=== PATIENT | female | born 1975 | race Caucasian/White ===

== ENCOUNTER 2022-01-25 12:30 | Emergency (ER) | payer OTHER, SELFPAY ==
[2022-01-25 12:52] VITALS: BP 122/80; PULSE 95; RESP 16; TEMP 36.4; O2SAT 100; BMI 23.3
--- NOTE | 2022-01-25 13:32 | ED_ITS ---
HPI - Ear Problem General Chief complaint: Ear/Nose/Throat Problem Stated complaint: Left ear pain, can't hear from it Time Seen by Provider: 01/25/22 12:55 Source: patient Mode of arrival: ambulatory Limitations: no limitations History of Present Illness HPI Narrative: 46-year-old female coming in today complaining of difficulty hearing in the left ear for about a week and half. She denies any trauma. No headache. She has drainage from her ear. She has been battling chronic ear infections bilaterally for a year she states. She has not been on any treatment as of late cut her ears were doing fine until this happened. She denies any recent cold or congestion. No runny nose no difficulty breathing. Related Data Previous Rx's Medication Instructions Recorded ciprofloxacin 0.3 %-dexamethasone 4 drp OTIC (EAR) QID 7 Days #7.5 ml 01/25/22 0.1 % ear drops,suspension (Ciprodex) Allergies Allergy/AdvReac Type Severity Reaction Status Date / Time Penicillins AdvReac Unknown Verified 01/25/22 12:55 Review of Systems Status of ROS: Reports: 10 or more systems reviewed and unremarkable except as noted in History and below Exam Narrative: Exam Narrative: Well-nourished well-developed patient in no acute distress. Alert and oriented. Answers questions appropriately. Mood and affect are appropriate. Thoughts are goal oriented and rational. No tangential or magical thinking noted. Patient speaks in full sentences without needing to catch their breath. HEENT: Normocephalic atraumatic. Pupils are equally round reactive to light. Extraocular muscles are intact. Conjunctivae are moist without any icterus noted. Nares patent bilaterally. Right TM appears normal with a normal external ear canal. Left TM cannot visualized. Left ear canal is full of thick white discharge consistent with an otitis externa. Skin: Well perfused without any obvious rashes. Const: Vital Signs, click to edit/add: Vital Signs - 24 hr 01/25/22 12:52 Temperature 97.6 F Pulse Rate [Pulse Oximeter] 95 Respiratory Rate 16 Blood Pressure [Ri ght Upper Arm] 122/80 Pulse Oximetry 100 Course Vital Signs Vital signs: Initial Vital Signs Temperature 97.6 F 01/25/22 12:52 Temperature Source Temporal Artery Scan 01/25/22 12:52 Pulse Rate 95 01/25/22 12:52 Respiratory Rate 16 01/25/22 12:52 Blood Pressure 122/80 01/25/22 12:52 Blood Pressure Mean 94 01/25/22 12:52 Blood Pressure Position Sitting 01/25/22 12:52 Pulse Oximetry 100 01/25/22 12:52 Oxygen Delivery Method 01/25/22 12:52 Vital Signs Temperature 97.6 F 01/25/22 12:52 Pulse Rate 95 01/25/22 12:52 Respiratory Rate 16 01/25/22 12:52 Blood Pressure 122/80 01/25/22 12:52 Pulse Oximetry 100 01/25/22 12:52 Temperature 97.6 F 01/25/22 12:52 Pulse Rate 95 01/25/22 12:52 Respiratory Rate 16 01/25/22 12:52 Blood Pressure 122/80 01/25/22 12:52 Pulse Oximetry 100 01/25/22 12:52 Medical Decision Making MDM Narrative Medical decision making narrative: Symptoms consistent with otitis externa. Will treat with Ciprodex 4 times per day and have her follow up with primary care. Discharge Plan Discharge Clinical Impression: Otitis externa Patient Disposition: Home, Self-Care Condition: Stable Additional Instructions: Use drops 4 times per day. Later on your right-sided fill the left ear with drops. Lather for 10 minutes before putting small follow-up cotton in the ear to hold the liquid inside. Do this for 1 week and follow-up with your primary care provider week from now. Prescriptions: New ciprofloxacin-dexamethasone [Ciprodex] 0.3-0.1 % drops,suspension 4 drp otic (ear) QID 7 Days Qty: 7.5 0RF Stand Alone Forms: [facility] Info Instructions
--- OUTSIDE RECORDS SUMMARY | 2022-02-19 13:28 | XMS_ITS | Encounter Summary ---
:1975 Author Organization Department of [facility] rs Address [address] [place] [address] Care Team Providers Name Role Phone CHRISTY RIBEIRO Primary Care Provider Unavailable Selected Encounter This section includes the information on record at [place] for the Encounter. Date/Time Encounter Type Encounter Description Reason Provider Source Dec 28, 2021 12:39 Outpatient Encounter CLINICAL PHARMACY PM [facility] Encounter Template Text not used by [place] Plan of Treatment: Future Appointments (+ 6 months) and Future Tests (+/- 45 days) The Plan of Treatment section includes future care activities for the patient from all [place] treatmentfacilities. This section includes future appointments and future orders which are active, pending orscheduled.Future Appointments This section includes appointments that were scheduled to occur 6 months from the date of the Encounter, up to a maximum of 20 appointments. The data comes from all [place] treatment facilities. Appointment Date/Time Appointment Type Appointment Facili ty Name Jan 03, 2022 06:00 PM AMBULATORY - NONE [facility] Jan 04, 2022 10:15 AM AMBULATORY - [facility] Jan 29, 2022 08:04 AM AMBULATORY - [facility] Jan 29, 2022 09:15 AM AMBULATORY [facility] Lab Results: +/- 30 days of the encounter This section includes the Chemistry and Hematology Lab Results on record with [place] for the patient. Radiology Reports and Pathology Reports are provided separately, in subsequent sections.Lab Results This section contains the Chemistry/Hematology Results that were resulted 30 days before or 30 daysafter the date of the Encounter. Date/Time Source Result Type Result - Unit Interpretation Reference Range Comment Dec 28, 2021 [facility] LIPID PANEL,NON-FASTING Spec imen Type: PLASMA 12:50 PM Comment: Elevat ed triglyceride result from a non-fasting specimen should be interpreted with caution. A fasting panel is recommended for accurate triglycerides when trigs are >200 from a non-fasting specimen. Ordering Provid er: CHRISTY RIBEIRO Report Released Date/Time: Dec 28, 2021 11:57 AM Reporting Lab: [facility] [address] [facility] [id number] Performing Lab: [facility] [address] [facility] [phone] CHOLESTEROL 266 mg/dL H <199 .HDL 73 mg/dL >50 LDL CALCULATION 149 mg/dL H <99 VLDL CALCULATION 44 mg/dL H <29 NON HDL CHOLESTEROL 193 mg/dL H <129 TRIG(NON FASTING) 219 mg/dL H <149 Dec 28, 2021 12:50 PM [facility] HEMOGLOBIN A1C Specim en Type: BLOOD No comment enter ed. Ordering Provid er: CHRISTY RIBEIRO Report Released Date/Time: Dec 28, 2021 11:57 AM Reporting Lab: [facility] [address] [facility] [id number] Performing Lab: [facility] [address] [facility] [id number] HEMOGLOBIN A1C 5.4 4.0-6.0 Dec 28, 2021 12:50 PM [facility] FSH Specim en Type: PLASMA Comment: Elevat ed triglyceride result from a non-fasting specimen should be interpreted with caution. A fasting panel is recommended for accurate triglycerides when trigs are >200 from a non-fasting specimen. Ordering Provid er: CHRISTY RIBEIRO Report Released Date/Time: Dec 28, 2021 11:57 AM Reporting Lab: [facility] [address] [facility] [phone] Performing Lab: [facility] [address] [facility] [phone] FSH 39.22 m[IU]/mL Dec 28, 2021 12:50 [facility] TSH W/REFLEX TO FREE Spec imen Type: PLASMA PM T4 Comment: Elevat ed triglyceride result from a non-fasting specimen should be interpreted with caution. A fasting panel is recommended for accurate triglycerides when trigs are >200 from a non-fasting specimen. Ordering Provid er: CHRISTY RIBEIRO Report Released Date/Time: Dec 28, 2021 11:57 AM Reporting Lab: [facility] [address] [facility] [address] Performing Lab: [facility] [address] [place] [facility] [id number] TSH 1.49 u[IU]/mL 0.35-4.94 Vital Signs: All taken on the encounter date This section contains inpatient and outpatient Vital Signs collected on the date of the Encounter. Date/Time Temperature Pulse Blood Respiratory SP02 Pain Height Weight Ricardo dy Source Pressure Rate Mass Index Dec 28 111/77 18 /min 97 % 4 65.5 in 138.3 23 [place] 2021 11:34 /min mm[Hg] lb [facility] Social History: Smoking Status (Most current) and Tobacco Use (All prior to encounter date) This section includes the most current, and the historical, smoking and tobacco-related health factors from the [place] facility where the Encounter took place.Current Smoking Status This section includes the most current smoking, or tobacco-related health factor, from the [place] facility where the Encounter took place. Date/Time Current Smoking Status Comment Facility Dec 28, 2021 11:00 AM VA-TOBACCO USER EVERY DAY [facility] Tobacco Use History This section includes a history of the smoking, or tobacco- related health factors, that were collected on or before the date of the Encounter. The data comes from the [place] facility where the Encounter took place. Date/Time Smoking Status/Tobacco Use Comment Tom leon Dec 28, 2021 11:00 AM VA-TOBACCO USE ADVICE THAO FRANCO [facility] Dec 28, 2021 11:00 AM VA-TOBACCO USE TIMEKEEPER NO [facility] Dec 28, 2021 11:00 AM VA-TOBACCO USE MED YES MIN [facility] Dec 28, 2021 11:00 AM VA-TOBACCO USE WI 30 MIN OF WAKEUP [facility] Dec 28, 2021 11:00 AM VA-TOBACCO USER EVERY DAY [facility] Jan 24, 2021 10:00 AM VA-TOBACCO USE > 15 LESS THAN 30 [facility] YEARS Jan 24, 2021 10:00 AM VA-TOBACCO USE ADVICE THAO FRANCO [facility] Jan 24, 2021 10:00 AM VA-TOBACCO USE TIMEKEEPER NO [facility] Jan 24, 2021 10:00 AM VA-TOBACCO USE MED NO [facility]AO FRANCO [facility] Jan 24, 2021 10:00 AM VA-TOBACCO USE WI 30 MIN OF WAKEUP [facility] Jan 24, 2021 10:00 AM VA-TOBACCO USER EVERY DAY [facility] Aug 25, 2019 12:31 PM VA-TOBACCO FORMER USER MIN [facility] Aug 25, 2019 12:31 PM VA-TOBACCO QUIT < 1 YEAR [facility] November 11, 2017 08:04 AM CURRENT TOBACCO USER [facility] May 16, 2015 12:39 PM CURRENT TOBACCO USER [facility] Sep 16, 2013 11:37 AM CURRENT TOBACCO USER [facility] Mar 18, 2012 07:44 AM CURRENT TOBACCO USER [facility] Sep 17, 2010 09:11 AM CURRENT TOBACCO USER [facility] Mar 22, 2009 08:43 AM CURRENT TOBACCO USER [facility] Mar 28, 2008 11:14 AM CURRENT TOBACCO USER [facility] May 04, 2007 11:39 AM CURRENT TOBACCO USER [facility] May 04, 2007 11:34 AM CURRENT TOBACCO USER [facility] Aug 07, 2006 09:27 AM CURRENT TOBACCO USER [facility] Advance Directives: All historical and current Section Date Range: From patient's date of to the date document was created. This section includes ALL of a patient's completed or amended [place] Advance and Rescinded Directives. The entries below indicate that a directive exists for the patient, but an actual copy is not included with this document. The data comes from all [facility]. Date Advance Directives Provider Source Apr 22, 2003 ADVANCE DIRECTIVE LUZ ASHBY [facility] Pathology Reports: +/- 30 days of the encounter Pathology Reports For cases when an order for pathology services may have been completed prior to the date of the Encounter, the report list includes the Pathology Reports that were completed up to 30 days before date of the Encounter. For cases when an order for pathology services may have been completed after the date of the Encounter, the report list also includes the Pathology Reports that were completed up to 30days after date of the Encounter. The data comes from all [place] treatment facilities. Date/Time Pathology Report Provider Source Dec 28, 2021 12:44 PM LR MICRO[facility]OLOGY REPORT: [place] [facility] Reporting Lab: [facility] [[id number]# [id number]] [place] [address] Accession [UID]: [id number] [[id number]] Receive d: Dec 28, 2021@12:44 Collection sample: CLIPPINGS Collection date: 2021 12:44 Site/Specimen: NAIL Provider: CHRISTY RIBEIRO Comment on specimen: RECEIVED IN STERILE CUP Test(s) ordered: HUANG FUNGAL PREP....... ........ completed: Jan 01, 2022 10:17 MYCOLOGY CULTURE.............. completed: Jan [id number] * MYCOLOGY FINAL REPORT => Jan 25, 2022 10:09 TE CODE: [id number] MYCOLOGY SMEAR/PREP: HUANG PREP: 1+ SEPTATE HYPHAE, 3-4 MICRONS WIDE CULTURE PENDING Fungus/Yeast: NO DERMATOPHYTES ISOLATED Mycology Remark(s): THIS REPORT IS FINAL =--=--=--=--=--=--=--=--=--=--=--=--=--= --=--=--=--=--=--=--=--=--=--=--=--=-- Performing Laboratory: Mycology Report Performed By: [facility] [CLIA# [id number]] [place] [address] Encounter Notes: All associated encounter notes This section contains the clinical notes associated to the Encounter. Date/Time Encounter Note(s) Provider Source Dec 28, 2021 12:39 PM EDUCATION NOTE: PERNELL PATTON [facility] LOCAL TITLE: EDUCATION MEDICATION INSTRUCTION STANDARD TITLE: EDUCATION NOTE DATE OF NOTE: DEC 28, 2021@12:39 ENTRY DATE: DEC 28, 2021@12:40:09 AUTHOR: PERNELL PATTON EXP COSIGNER: Edmond BOATENG URGENCY: STATUS: COMPLETED MEDICATION EDUCATION PARTICIPANTS: Patient TEACHING STRATEGY: Face to Face READINESS TO LEARN: No barriers identified LEARNING NEEDS/OBJECTIVES Participant(s) indicates readiness to learn and has been instructed on indications, side effects, and di rections for use. Participant(s) will receive medication informat ion sheets for medications filled. Education included discussion of the following: New medication(s): citalopram, FLUOCINOLONE CARMEN TONIDE 0.01% OTIC OIL PATIENT/FAMILY RESPONSE (OUTCOME): Verbalizes cr itical information about the topic FOLLOW-UP RECOMMENDED: None needed Active Outpatient Medications (including Supplie s): Outpatient Medications Status 1) ALBUTEROL 90MCG (CFC-F) 200D ORAL INHL INHALE 2 PUFFS ACTIVE BY MOUTH FOUR TIMES A DAY FOR BREATHING *SHAKE WELL* (FOR IMMEDIATE RELIEF) 2) CIPROFLOXACIN 0.3/DEXAM 0.1% OTIC SUSP INSTIL L 4 NON-VERIFIED DROPS IN EAR(S) TWICE A DAY 3) CITALOPRAM HYDROBROMIDE 20MG TAB TAKE ONE-ILEANA F TABLET NON-VERIFIED BY MOUTH EVERY DAY FOR 7 DAYS, THEN TAKE ONE TA BLET EVERY DAY 4) FLUOCINOLONE ACETONIDE 0.01% OTIC OIL INSTILL 5 DROPS NON-VERIFIED INTO BOTH EARS WEEKLY 5) FLUTICASONE PROP 50MCG 120D NASAL INHL SPRAY 1 SPRAY NON-VERIFIED IN EACH NOSTRIL EVERY DAY FOR ALLERGIES 6) IBUPROFEN 800MG TAB TAKE ONE TABLET BY MOUTH THREE NON-VERIFIED TIMES A DAY NEEDED FOR PAIN -TAKE WITH FOOD 7) POLYETHYLENE GLYCOL 3350 ORAL PWDR TAKE 17 GR AMS BY ACTIVE MOUTH EVERY DAY *MIX IN 4 TO 8 OUNCES OF LIQUID DIRECTED*USE COVER TO MEASURE POWDER* Non-VA Medications Status 1) Non-VA PSEUDOEPHEDRINE TAB 30MG MOUTH TWICE A DAY ACTIVE NEEDED 2) Non-VA VITAMIN E CAP,ORAL 1 TABLET MOUTH EVER Y DAY ACTIVE NEEDED 9 Total Medications /es/ PERNELL PATTON Staff Readiness Officer Signed: 12/28/2021 12:41 /prerna/ ADENIKE BOATENG [employer] Developer Cosigned: 12/28/2021 12:47
--- OUTSIDE RECORDS SUMMARY | 2022-02-19 13:28 | XMS_ITS | Encounter Summary ---
:1975 Author Organization Department of [facility] rs Address [address] [place] [id number] Support Name Relationship Address Phone DAVID VERNON Unavailable [address] [place] [address] MADDICHICO RAEANN Macias Unavailable [address] [place] [address] [place] [address] Selected Encounter This section includes the information on record at [facility] for the Encounter. Date/Time Encounter Type Encounter Description Reason Provider Source Jan 15, 2022 08:59 Outpatient Encounter TELEPHONE/ANCILLARY AM IHE Encounter Template Text not used by [place] Plan of Treatment: Future Appointments (+ 6 months) and Future Tests (+/- 45 days) The Plan of Treatment section includes future care activities for the patient from all [place] treatmentfacilities. This section includes future appointments and future orders which are active, pending orscheduled.Future Appointments This section includes appointments that were scheduled to occur 6 months from the date of the Encounter, up to a maximum of 20 appointments. The data comes from all [place] treatment facilities. Appointment Date/Time Appointment Type Appointment Facili ty Name Jan 29, 2022 08:04 AM AMBULATORY - NONE [facility] Jan 29, 2022 09:15 AM AMBULATORY [facility] Lab Results: +/- 30 days of the encounter This section includes the Chemistry and Hematology Lab Results on record with [facility] for the patient. Radiology Reports and Pathology Reports are provided separately, in subsequent sections.Lab Results This section contains the Chemistry/Hematology Results that were resulted 30 days before or 30 daysafter the date of the Encounter. Date/Time Source Result Type Result - Unit Interpretation Reference Range Comment Jan 29, 2022 09:07 AM [facility] ALT/SGPT Specim en Type: PLASMA No comment enter ed. Ordering Provid er: CHRISTY RIBEIRO Report Released Date/Time: Jan 03, 2022 09:17 AM Reporting Lab: [facility] [address] [facility] [address] Performing Lab: [facility] [address] [facility] [address] ALT/SGPT 12 <55 Jan 29, 2022 09:07 AM [facility] AST/SGOT Specim en Type: PLASMA No comment enter ed. Ordering Provid er: CHRISTY RIBEIRO Report Released Date/Time: Jan 03, 2022 09:17 AM Reporting Lab: [facility] [address] [facility] [address] Performing Lab: [facility] [address] [facility] [address] AST/SGOT 17 <34 Jan 29, 2022 [facility] CREATININE(INCLUDES EGFR) Sp ecimen Type: PLASMA 09:07 AM No comment enter ed. Ordering Provid er: CHRISTY RIBEIRO Report Released Date/Time: Jan 03, 2022 09:17 AM Reporting Lab: [facility] [address] [facility] [address] Performing Lab: [facility] [address] [facility] [address] CREATININE 0.6 0.5-1.0 CREAT EGFR(CKD-EPI) >90 >60 Jan 29, 2022 09:07 AM [facility] CBC Specim en Type: BLOOD No comment enter ed. Ordering Provid er: CHRISTY RBIEIRO Report Released Date/Time: Jan 03, 2022 09:17 AM Reporting Lab: [facility] [address] [facility] [address] Performing Lab: [facility] [address] [facility] [address] WBC 8.61 4.0-11.0 RBC 4.53 4.0-5.4 HGB 15.0 11.5-16 HCT 44.6 34.5-48 MCV 98.5 80-100 MCH 33.1 H 27-33 MCHC 33.6 32.0-37.5 PLT 271 150-400 MPV 9.5 7.4-10.4 RDW 13.2 11.5-14.5 Dec 28, 2021 12:50 [facility] TSH W/REFLEX TO FREE Spec imen Type: PLASMA PM T4 Comment: Elevat ed triglyceride result from a non-fasting specimen should be interpreted with caution. A fasting panel is recommended for accurate triglycerides when trigs are >200 from a non-fasting specimen. Ordering Provid er: CHRISTY RIBEIRO Report Released Date/Time: Dec 28, 2021 11:57 AM Reporting Lab: [facility] [address] [facility] [address] Performing Lab: [facility] [address] [facility] [address] TSH 1.49 0.35-4.94 Dec 28, 2021 12:50 PM [facility] FSH Specim en Type: PLASMA Comment: Elevat ed triglyceride result from a non-fasting specimen should be interpreted with caution. A fasting panel is recommended for accurate triglycerides when trigs are >200 from a non-fasting specimen. Ordering Provid er: CHRISTY RIBEIRO Report Released Date/Time: Dec 28, 2021 11:57 AM Reporting [facility] [address] Performing Lab: [facility] [address] FSH 39.22 Dec 28, 2021 12:50 PM [facility] HEMOGLOBIN A1C Specim en Type: BLOOD No comment enter ed. Ordering Provid er: CHRISTY RIBEIRO Report Released Date/Time: Dec 28, 2021 11:57 AM Reporting Lab: [facility] [address] [facility] [address] Performing Lab: [facility] [address] HEMOGLOBIN A1C 5.4 4.0-6.0 Dec 28, 2021 [facility] LIPID PANEL,NON-FASTING Spec imen Type: PLASMA 12:50 PM Comment: Elevat ed triglyceride result from a non-fasting specimen should be interpreted with caution. A fasting panel is recommended for accurate triglycerides when trigs are >200 from a non-fasting specimen. Ordering Provid er: CHRISTY RIBEIRO Report Released Date/Time: Dec 28, 2021 11:57 AM Reporting Lab: [facility] [address] [facility] [address] Performing Lab: [facility] [address] CHOLESTEROL 266 H <199 .HDL 73 >50 LDL CALCULATION 149 H <99 VLDL CALCULATION 44 H <29 NON HDL CHOLESTEROL 193 H <129 TRIG(NON FASTING) 219 H <149 Social History: Smoking Status (Most current) and Tobacco Use (All prior to encounter date) This section includes the most current, and the historical, smoking and tobacco-related health factors from the [facility] facility where the Encounter took place.Current Smoking Status This section includes the most current smoking, or tobacco-related health factor, from the [place] facility where the Encounter took place. Date/Time Current Smoking Status Comment Facility Jan 15, 2022 09:37 AM CURRENT SMOKER MINDY Hyl[facility] Tobacco Use History This section includes a history of the smoking, or tobacco- related health factors, that were collected on or before the date of the Encounter. The data comes from the [place] facility where the Encounter took place. Date/Time Smoking Status/Tobacco Use Comment [facility] Dec 28, 2021 11:00 AM VA-TOBACCO USE > 15 LESS THAN 30 [facility] YEARS Dec 28, 2021 11:00 AM VA-TOBACCO USE ADVICE [facility] Dec 28, 2021 11:00 AM VA-TOBACCO USE CITIZEN PARTICIPATION SPECIALIST NO [facility] Dec 28, 2021 11:00 AM VA-TOBACCO USE MED YES [facility] Dec 28, 2021 11:00 AM VA-TOBACCO USE WI 30 MIN OF WAKEUP [facility] Dec 28, 2021 11:00 AM VA-TOBACCO USER EVERY DAY [facility] Jan 24, 2021 10:00 AM VA-TOBACCO USE > 15 LESS THAN 30 [facility] YEARS Jan 24, 2021 10:00 AM [facility]BACCO [facility] Jan 24, 2021 10:00 AM VA-TOBACCO USE CITIZEN PARTICIPATION SPECIALIST NO [facility] Jan 24, 2021 10:00 AM VA-TOBACCO USE MED NO [facility] Jan 24, 2021 10:00 AM VA-TOBACCO USE WI 30 MIN OF WAKEUP [facility] Jan 24, 2021 10:00 AM VA-TOBACCO USER EVERY DAY [facility] Aug 25, 2019 12:31 PM VA-TOBACCO FORMER USER [facility] Aug 25, 2019 12:31 PM VA-TOBACCO QUIT < 1 YEAR [facility] [place] [facility] November 11, 2017 08:04 AM CURRENT TOBACCO USER [facility] May 16, 2015 12:39 PM CURRENT TOBACCO USER [facility] Sep 16, 2013 11:37 AM CURRENT [facility] Mar 18, 2012 07:44 AM CURRENT [facility] Sep 17, 2010 09:11 AM CURRENT [facility]AC[facility] Mar 22, 2009 08:43 AM CURRENT TOBACCO USER [facility] Mar 28, 2008 11:14 AM CURRENT TOBACCO USER [facility] May 04, 2007 11:39 AM CURRENT TOBACCO USER [facility] May 04, 2007 11:34 AM CURRENT TOBACCO USER [facility] Aug 07, 2006 09:27 AM CURRENT TOBACCO USER [facility] Advance Directives: All historical and current Section Date Range: From patient's date of to the date document was created. This section includes ALL of a patient's completed or amended [facility] Advance and Rescinded Directives. The entries below indicate that a directive exists for the patient, but an actual copy is not included with this document. The data comes from all [place] facilities. Date Advance Directives Provider Source Apr 22, 2003 ADVANCE DIRECTIVE LUZ ASHBY [facility] Pathology Reports: +/- 30 days of [...] the Encounter. The data comes from all [place] treatment facilities. Date/Time Pathology Report Provider Source Dec 28, 2021 12:44 PM LR MICROBIOLOGY REPORT: MO HUONG [facility] Reporting Lab: [facility] [CLIA# [id number]] [place] [address] Accession [UID]: [id number] [[id number]] Receive d: Dec 28, 2021@12:44 Collection sample: CLIPPINGS Collection date: 2021 12:44 Site/Specimen: NAIL Provider: CHRISTY RIBEIRO Comment on specimen: RECEIVED IN STERILE CUP Test(s) ordered: HUANG FUNGAL PREP....... ........ completed: Jan 01, 2022 10:17 MYCOLOGY CULTURE.............. completed: Jan [id number] * MYCOLOGY FINAL REPORT => Jan 25, 2022 10:09 TE CODE: [id number] MYCOLOGY SMEAR/PREP: HUANG PREP: 1+ SEPTATE HYPHAE, 3-4 MICRONS WIDE CULTURE PENDING Fungus/Yeast: NO DERMATOPHYTES ISOLATED Mycology Remark(s): THIS REPORT IS FINAL =--=--=--=--=--=--=--=--=--=--=--=--=--= --=--=--=--=--=--=--=--=--=--=--=--=-- Performing Laboratory: Mycology Report Performed By: [facility] [CLIA# [id number]] [address] [place] [address] Encounter Notes: All associated encounter notes This section contains the clinical notes associated to the Encounter. Date/Time Encounter Note(s) Provider Source Jan 15, 2022 09:00 AM REPORT OF CONTACT: [facility] LOCAL TITLE: PATIENT CONTACT NOTE STANDARD TITLE: REPORT OF CONTACT DATE OF NOTE: JAN 15, 2022@09:00 ENTRY DATE: JAN 15, 2022@09:00:06 AUTHOR: KELSI CHOI EXP COSIGNER: URGENCY: STATUS: COMPLETED Patient contact Pt with hx of CHELI 2,3 in 2005- Name of Fortun[place]: CHELI FITCH Name/Relationship of Contact if other than Veter an: Date & Time of Contact: Jan@09:00 Type of Contact: Telephone Reason for Contact: Called pt to do cervical ca. risk screen. Left h ipaa-compliant VM message along w/callback number ([phone]) f or her to return the call. /prerna/ KELSI CHOI RN REGISTERED NURSE Signed: 01/15/2022 09:01
--- OUTSIDE RECORDS SUMMARY | 2022-02-19 13:28 | XMS_ITS | Continuity of Care Document ---
:1975 Author Organization [facility] Care Team Providers Name Role Phone [facility] Unavailable Unavailable Problems Combined list of problems from Department of Defense and [facility] Affairs facilities. It does not include entries that were removed or entered in error. Problem Status Onset Problem Date of Comments Source Date Type Resolution Anxiety Active Condition [place] state/reaction [facility] S Back pain, low Active Condition [place] [facility] Cancer cervix Active Condition Jan 15 [place] screening status 2021 Entered [facility] By: ALMA CHOI Comment: 08/08/2005 CHELI II,III finding on [place]. Needs q3yr f/u x 25 years after CHELI 2,3 result, so through 2030. Jan 15, 2022 Entered By: ALMA CHOI Comment: 09/07/2019 PAP NILM/HPV Neg Next due for co-test in 3 years, 08/2022 Cervicalgia Active Condition [place] (ICD-9-CM 723.1) [facility] Diverticulitis of Active Condition [place] [facility] Fatigue and Malaise Active Condition [facility] Fibromyalgia Active Condition [place] [facility] High risk for Active Condition November 13, [place] breast cancer 2017 Entered [facility] By: CHRISTY RIBEIRO Comment: alternating mammogram/MRI every 6 mos. 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 [facility] (SNOMED CT 79284042592774306) Osteoarthritis Active Condition [place] (SNOMED CT [facility] [id number]) Paroxysmal SVT Active Condition [place] [facility] Soc Hx: working in Active Condition [place] [employer], [place], + tobacco, occ etoh, no drugs of abuse Supraventricular Active Condition [place] tachycardia [facility] Surg Hx: LEEP, Active Condition [place] adenoids and [facility] possible tonsils, Acute atopic Inactive Condition 11/11/2017 [place] conjunctivitis [facility] S (SNOMED CT [id number]) Diagnosis: active Diagnosis [place] ICD-10-CM H60.549 [facility] Acute eczematoid otitis externa, unspecified earwith Provider Comments: Acute Eczematoid Otitis Externa, unspecified Ear Diagnosis: active Diagnosis [place] ICD-10-CM H60.8X3 [facility] Other otitis externa, bilateralwith Provider Comments: Other Otitis Externa, Bilateral Diagnosis: active Diagnosis C.WSilverio POPE ICD-10-CM S52.125A [facility] DEPT OF Nondisp fx of head V [facility] of left radius, init for clos fxwith Provider Comments: Nondisplaced Fracture of Head of left Radius, Initial Encounter for closed Fracture Diagnosis: active Diagnosis [place] ICD-10-CM Z71.89 [facility] Other specified counselingwith Provider Comments: Other specified counseling Diagnosis: active Diagnosis [place] ICD-10-CM K57.33 [facility] Dvtrcli of lg int w/o perforation or abscess w bleedingwith Provider Comments: Diverticulitis of colon (SNOMED CT [id number]) Diagnosis: active Diagnosis [place] ICD-10-CM H90.3 [facility] CS Sensorineural hearing loss, bilateralwith Provider Comments: Sensorineural hearing loss, bilateral Diagnosis: active Diagnosis [place] ICD-10-CM Z01.118 [facility] Encntr for exam of ears and hearing w oth abnormal findingswith Provider Comments: Encntr for exam of ears and hearing w oth abnormal findings Diagnosis: active Diagnosis [place] ICD-10-CM Z01.00 [facility] Encounter for exam of eyes and vision w/o abnormal findingswith Provider Comments: Encounter for exam of eyes and vision w/o abnormal findings Diagnosis: active Diagnosis [place] ICD-10-CM F17.218 [facility] Nicotine dependence, cigarettes, w oth disorderswith Provider Comments: Nicotine Dependence, Cigarettes, with other Nicotine-Induced Disorders Diagnosis: active Diagnosis [place] ICD-10-CM Z30.09 [facility] Encounter for oth general cnsl and advice on contraceptionwith Provider Comments: Encounter for other General Counseling and Advice on Contraception Medications Combined list of outpatient medications from Department of Defense and Veterans Affairs facilities. Medications provided include 1) outpatient medications from the last 15 months, and 2) patient-reported medications. Medication Details Route Status Patient Prescription Prescription Last Ordering Order Source Instructions Expires Number Dispense Provider Date Date ALBUTEROL INHALE 2 ORAL ACTIVE 12/29/2022 [id number] RIBEIRO ,ALI 12/28/ [place] 90MCG/ACTUA PUFFS BY 2 2021 [place] [facility] T ([facility]-F) MOUTH HCS INHL,ORAL,8 FOUR .5GM DOSE TIMES A COUNTER DAY FOR BREATHIN G *SHAKE WELL* (FOR IMMEDIAT E RELIEF) ALBUTEROL INHALE 2 ORAL DISCONT 06/28/2022 [id number] D URAN,ALI 06/27/ [place] 90MCG/ACTUA PUFFS BY INUED 1 2020 [place] [facility] T (CFC-F) MOUTH HCS INHL,ORAL,8 FOUR .5GM DOSE TIMES A COUNTER DAY FOR BREATHIN G *SHAKE WELL* (FOR IMMEDIAT E RELIEF) ALBUTEROL INHALE 2 ORAL DISCONT 11/29/2021 [id number] D URAN,ALI 11/28/ [place] 90MCG/ACTUA PUFFS BY INUE 1 2020 [place] [facility] T (CFC-F) MOUTH HCS INHL,ORAL,8 FOUR .5GM DOSE TIMES A COUNTER DAY FOR BREATHIN G *SHAKE WELL* (FOR IMMEDIAT E RELIEF) ALBUTEROL INHALE 2 ORAL DISCONT 01/07/2021 [id number] BOWM AN 01/07/ [place] 90MCG/ACTUA PUFFS BY INUE 1 2019 O [place] [facility] T (CFC-F) MOUTH AKIL M HCS INHL,ORAL,8 FOUR .5GM DOSE TIMES A COUNTER DAY FOR BREATHIN G *SHAKE WELL* (FOR IMMEDIAT E RELIEF) CIPROFLOXAC INSTILL AURICU 01/27/2022 [id number] D URAN,ALI 12/28/ [place] IN HCL 4 DROPS LAR 2 2021 [place] [facility] 0.3%/DEXAME IN (OTIC) HCS THASONE EAR(S) 0.1% TWICE A SUSP,OTIC DAY FOR ONE WEEK CITALOPRAM TAKE ORAL DISCONT 12/29/2022 [id number] Paige RIBEIRO 12/28/ [place] HYDROBROMID ONE-HALF INUED 2 2021 [place] [facility] E 20MG TAB TABLET HCS BY MOUTH EVERY DAY FOR 7 DAYS, THEN TAKE ONE TABLET EVERY DAY CYCLOBENZAP TAKE ONE ORAL DISCONT 01/07/2021 [id number] GREGORIA WMAN 01/07/ [place] HCL TABLET INUE 1 2019 [place] [facility] A 10MG TAB BY MOUTH AKIL Dodd HCS THREE TIMES A DAY NEEDED FOR MUSCLE RELAXER CYCLOBENZAP TAKE ONE ORAL 12/22/2021 [id number] DIANA RIBEIRO 12/22/ [place] HCL TABLET 1 2020 [place] [facility] 10MG TAB BY MOUTH HCS THREE TIMES A DAY NEEDED FOR MUSCLE RELAXER DOCUSATE NA TAKE 1 ORAL 12/22/2021 [id number] D URDIANA LEDEZMA 12/22/ [place] 50MG/SENNOS TO 4 1 2020 [place] [facility] IDES 8.6MG TABLETS HCS TAB BY MOUTH UP TO TWICE A DAY NEEDED FOR CONSTIPA TION -STOP IF DIARRHEA /LOOSE STOOLS OCCUR DOXYCYCLINE TAKE TWO ORAL 01/27/2021 [id number] DIANA RIBEIRO 12/29/ [place] HYCLATE TABLETS 1 2020 [place] [facility] 100MG TAB BY MOUTH HCS ONCE FOR LYME PREVENTI ON FLUOCINOLON INSTILL AURICU ACTIVE 12/29/2022 [id number] DIANA RIBERA 12/28/ [place] E ACETONIDE 5 DROPS LAR 2 2021 [place] [facility] A 0.01% INTO (OTIC) HCS OIL,OTIC BOTH EARS WEEKLY FLUTICASONE INHALE 1 RESPIR 09/20/2021 [id number] DIANA RIBEIRO 09/20/ [place] 250MCG/SALM PUFF BY ATORY 1 2020 [place] A ETEROL INHALATI (INHAL HCS 50MCG ON TWICE ATION) INHL,ORAL,D A DAY TO ISKUS,60 PREVENT TROUBLE BREATHIN G -RINSE MOUTH AFTER EACH USE FLUTICASONE SPRAY 1 NASAL ACTIVE 12/29/2022 [id number] D DIANA WEBSTER 12/28/ [place] PROPIONATE SPRAY IN 2 2021 [place] A 50MCG/SPRAY EACH HCS SOLN,NASAL, NOSTRIL 16GM EVERY DAY FOR ALLERGIE S FLUTICASONE SPRAY 1 NASAL DISCONT 11/29/2021 [id number] RIBEIRO,ALI 12/08/ [place] PROPIONATE SPRAY IN INUED 1 2020 [place] A 50MCG/SPRAY EACH HCS SOLN,NASAL, NOSTRIL 16GM EVERY DAY FOR ALLERGIE S GABAPENTIN TAKE ONE ORAL ACTIVE 01/04/2023 [id number] RIBEIRO ,ALI 01/03/ [place] 300MG CAP CAPSULE 2 2021 [place] [facility] BY MOUTH HCS AT BEDTIME FOR HOT FLASHES HC INSTILL AURICU 12/30/2020 [id number] RIBEIRO,AL I 11/30/ [place] 1%/N-MYCIN 4 DROPS LAR 1 2020 [place] [facility] 3.5MG/POLYM IN (OTIC) HCS YX EAR(S) 26729RHP/ML FOUR SUSP,OTIC TIMES A DAY FOR 1 WEEK FOR EAR INFECTIO N - SHAKE WELL IBUPROFEN TAKE ONE ORAL ACTIVE 12/29/2022 [id number] RIBEIRO ,ALI 12/28/ [place] 800MG TAB TABLET 2 2021 [place] [facility] BY MOUTH HCS THREE TIMES A DAY NEEDED FOR PAIN -TAKE WITH FOOD IBUPROFEN TAKE ONE ORAL DISCONT 04/11/2022 [id number] D DARINALI 04/10/ [place] 800MG TAB TABLET INUED 1 2020 [place] [facility] BY MOUTH HCS THREE TIMES A DAY NEEDED FOR PAIN -TAKE WITH FOOD IBUPROFEN TAKE ONE ORAL DISCONT 03/22/2021 [id number] RIBEIRO ALI 03/21/ [place] 800MG TAB TABLET INUE 1 2019 [place] [facility] BY MOUTH HCS THREE TIMES A DAY NEEDED FOR PAIN -TAKE WITH FOOD MEDROXYPROG INJECT SUBCUT 04/18/2021 [id number] RA UWERDIN 01/24/ [place] ESTERONE CONTENTS ANEOUS 1 K,ZULLY R 2020 [place] S VA ACETATE OF ONE HCS 104MG/0.65M SYRINGE L SYR (104 INJ,SUSP MG/0.65 ML) UNDER THE SKIN EVERY 12 WEEKS DUE BETWEEN NOW AND 02/04. PLEASE CONTACT CLINIC AFTER GIVING. APPROVED FOR HOME ADMINIST RATION. DUE BETWEEN NOW AND 02/04. PLEASE CONTACT CLINIC AFTER GIVING. APPROVED FOR HOME ADMINIST RATION. MEDROXYPROG INJECT INTRAM DISCONT 05/03/2022 [id number] KR EBS,HEVER 05/02/ [place] ESTERONE 150MG USCULA INUED 1 N 2020 [place] [facility] ACETATE INTRAMUS R HCS 150MG/ML CULAR INJ,SUSP EVERY 3 MONTHS TO PREVENT PREGNANC Y -- TO BE ADMINIST ERED IN CLINIC ONLY. ADMINIST ERED IN CLINIC EVERY 3 MONTHS OXYCODONE TAKE 1 ORAL 10/19/2021 [id number] BORN,TR EV 09/19/ C.[facility]. HCL TABLET 2 OR R 2021 BILL 5MG/ACETAMI BY MOUTH YOUNG NOPHEN EVERY 4 DEPT OF 325MG TAB HOURS [facility] NEEDED FOR PAIN 4-6; MAY TAKE 2 TABLETS FOR PAIN 7-10. TAKE WITH STOOL SOFTENER TO MINIMIZE RISK OF CONSTIPA TION POLYETHYLEN TAKE 17 ORAL 01/25/2022 [id number] D DIANA WEBSTER 01/24/ [place] E GLYCOL GRAMS BY 1 2020 [place] [facility] 3350 MOUTH HCS PWDR,ORAL EVERY DAY *MIX IN 4 TO 8 OUNCES OF LIQUID DIRECTED *USE COVER TO MEASURE POWDER* PSEUDOEPHED TAKE ORAL ACTIVE KEILA,B [place] TAB 30MG BY 2013 [place] [facility] M[facility]TH [facility]CS TWICE A DAY NEEDED TERBINAFINE TAKE ONE ORAL ACTIVE 03/28/2022 [id number] DIANA NORTON 01/03/ [place] HCL 250MG TABLET 2 2021 [place] [facility] TAB BY MOUTH HCS EVERY DAY FOR 12 WEEKS FOR TOENAIL FUNAL INFECTIO N VITAMIN E TAKE ONE ORAL ACTIVE DERNICK,B [place] CAP,ORAL TABLET 2013 [place] [facility] BY MOUTH HCS EVERY DAY NEEDED Allergies, Adverse Reactions, Alerts Combined list of allergies from Department of Defense and Veterans Affairs facilities. It does not include entries that were removed or entered in error. Substance Category Reaction Severity Reaction Status Date Comments S ource type Reported CITALOPRAM Propensity Eruption, MILD Propensity active [place] to adverse Itching to adverse 2 [facility] reactions reactions to drug to drug (finding) (finding) CODEINE Propensity Headache Propensity active [facility] BILL to adverse to adverse 2 YO [place] reactions reactions DEPT OF to drug to drug [facility] (finding) (finding) MORPHINE Propensity Eruption, Propensity active [facility] BILL to adverse Itching to adverse 2 YO [place]ET[place] reactions reactions DEPT OF to drug to drug [facility] (finding) (finding) PENICILLIN Propensity Propensity active [place] to adverse to adverse 8 [facility] reactions reactions to drug to drug (finding) (finding) PENICILLIN Propensity Drowsy Propensity active [facility] BILL to adverse to adverse 2 YO [place] reactions reactions DEPT OF to drug to drug [facility] (finding) (finding) VICODIN Propensity Headache Propensity active [facility] BILL to adverse to adverse 2 YO [place] reactions reactions DEPT OF to drug to drug [facility] (finding) (finding) Immunizations Combined list of available immunizations from the Department of Defense and Veterans Affairs facilities. 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 TD(ADULT) complet [place] UNSPECIFIED 2008 ed [facility] S INFLUENZA, complet [place] UNSPECIFIED 2006 ed [facility] INFLUENZA, complet [place] UNSPECIFIED 2005 ed [facility] [place] [facility] TD(ADULT) complet [place] UNSPECIFIED 2005 ed [facility] ID FORMULATION HC S INFLUENZA complet [place] (HISTORICAL) 2003 ed [facility] [place] ID HCS INFLUENZA complet [place] (HISTORICAL) 2002 ed [facility] ID HCS PNEUMOCOCCAL, 06/24/ JOBY YOUNG 109 com plet [place] UNSPECIFIED 2002 A J ed [facility] TD(ADULT) 07/14/ 139 complet [place] UNSPECIFIED 1995 ed [place] [facility] Results Combined list of recent chemistry, hematology and other laboratory results from Department of Defense and Veterans Affairs, ranging from 15 months to all on record, depending upon the facility. Order Results Value Reference Date Interpretation Specimen Commen ts Source Name Range ALT/SGPT ALANINE 12 U/L <55 - 55 01/29 Specimen Type: PLASMA [place] AMINOTRANS /2021 No comment en tered. IS ID [employer] FERASE Ordering Provi jayson: CHRISTY RIBEIRO [ENZYMATIC Report Relea sed Date/Time: Jan 03, 2022 09:17 AM ACTIVITY/V Reporting La b: [facility] OLUME] IN [address] [facility] [address] SERUM OR Performing Lab : [facility] PLASMA [address] [place] [facility] [address] AST/SGOT ASPARTATE 17 U/L <34 - 34 01/29 Specimen Typ e: PLASMA [place] AMINOTRANS /2021 No comment en tered. IS [facility] FERASE Ordering Provid er: CHRISTY RIBEIRO [ENZYMATIC Report Relea sed Date/Time: Jan 03, 2022 09:17 AM ACTIVITY/V Reporting La b: [facility] HCS OLUME] IN [address] [facility] [address] SERUM OR Performing Lab : [facility] PLASMA [place] [address] CBC LEUKOCYTES 8.61 4.0 - 11.0 01/29 Specimen T ype: BLOOD [place] [#/VOLUME] 10*3/uL /2021 No comment en tered. IS [facility] IN BLOOD Ordering Provi jayson: CHRISTY RIBEIRO BY Report Released Date/Time: Jan 03, 2022 09:17 AM AUTOMATED Reporting Lab : [facility] COUNT [address] [place] [facility] [address] Performing Lab: [facility] [address] [place] [facility] [address] CBC ERYTHROCYT 4.53 4.0 - 5.4 01/29 Specimen Ty pe: BLOOD [place] ES 10*6/uL /2021 No comment enter ed. IS [facility] [#/VOLUME] Ordering Pro vider: CHRISTY RIBEIRO IN BLOOD Report Release d Date/Time: Jan 03, 2022 09:17 AM BY Reporting Lab: [facility] AUTOMATED RAIZA [place] [facility] [address] COUNT Performing Lab: [facility] [place] [address] CBC HEMOGLOBIN 15.0 11.5 - 16 01/29 Specimen Ty pe: BLOOD [place] [MASS/VOLU g/dL /2021 No comment en tered. IS [facility] ME] IN Ordering Provid er: CHRISTY RIBEIRO BLOOD Report Released Date/Time: Jan 03, 2022 09:17 AM Reporting Lab: [facility] [address] [place] [facility] [address] Performing Lab: [facility] [place] [address] CBC HEMATOCRIT 44.6 34.5 - 48 01/29 Specimen Ty pe: BLOOD [place] [VOLUME /2021 No comment enter ed. [facility] F[facility]CTION] Ordering Prov ider: CHRISTY RIBEIRO OF BLOOD Report Release d Date/Time: Jan 03, 2022 09:17 AM BY Reporting Lab: [facility] AUTOMATED RAIZA [place] [facility] [address] COUNT Performing Lab: [facility] [address] [place] [facility] [address] CBC MCV 98.5 fL 80 - 100 01/29 Specimen Type: BLOOD [place] [ENTITIC /2021 No comment ente red. IS [facility] VOLUME] BY Ordering Pro vider: CHRISTY RIBEIRO AUTOMATED Report Releas ed Date/Time: Jan 03, 2022 09:17 AM COUNT Reporting Lab: [facility] [address] [place] [facility] [address] Performing Lab: [facility] [address] [place] [facility] [address] CBC MCH 33.1 pg 27 - 33 01/29 H Specimen Type: B LOOD [place] [ENTITIC /2021 No comment ente red. [facility] MASS] BY Ordering Provi jayson: CHRISTY RIBEIRO AUTOMATED Report Releas ed Date/Time: Jan 03, 2022 09:17 AM COUNT Reporting Lab: [facility] [address] [place] [facility] [address] Performing Lab: [facility] [place] [address] CBC MCHC 33.6 32.0 - 01/29 Specimen Type: B LOOD [place] [MASS/VOLU g/dL 37.5 /2021 No comment en tered. IS [facility] ME] BY Ordering Provid er: CHRISTY RIBEIRO AUTOMATED Report Releas ed Date/Time: Jan 03, 2022 09:17 AM COUNT Reporting Lab: [facility] [address] [place] [address] Performing Lab: [facility] [address] [place] [address] CBC PLATELETS 271 150 - 400 01/29 Specimen Typ e: BLOOD [place] [#/VOLUME] 10*3/uL /2021 No comment en tered. IS [facility] IN BLOOD Ordering Provi jayson: CHRISTY RIBEIRO BY Report Released Date/Time: Jan 03, 2022 09:17 AM AUTOMATED Reporting Lab : [facility] COUNT [address] [place] [address] Performing Lab: [facility] [address] [place] [address] CBC PLATELET 9.5 fL 7.4 - 10.4 01/29 Specimen Typ e: BLOOD [place] MEAN /2021 No comment enter ed. IS [facility] VOLUME Ordering Provid er: CHRISTY RIBEIRO [ENTITIC Report Release d Date/Time: Jan 03, 2022 09:17 AM VOLUME] IN Reporting La b: [facility] BLOOD [place] [address] AUTOMATED Performing La b: [facility] COUNT [address] [place] [address] CBC ERYTHROCYT 13.2 11.5 - 01/29 Specimen Type : BLOOD [place] E 14.5 /2021 No comment enter ed. IS [facility] DISTRIBUTI Ordering Pro vider: CHRISTY RIBEIRO ON WIDTH Report Release d Date/Time: Jan 03, 2022 09:17 AM [RATIO] BY Reporting La b: [facility] AUTOMATED [address] [facility] [address] COUNT Performing Lab: [facility] [address] [place] [address] CREATINI CREATININE 0.6 0.5 - 1.0 01/29 Specimen T ype: PLASMA [place] NE(INCLU [MASS/VOLU mg/dL /2021 No comment e ntered. IS [facility] DIANA ME] IN Ordering Provid er: CHRISTY RIBEIRO EGFR) SERUM OR Report Release d Date/Time: Jan 03, 2022 09:17 AM PLASMA Reporting Lab: [facility] [address] [place] [address] Performing Lab: [facility] [place] [address] CREATINI GLOMERULAR >90 60 01/29 Specimen Typ e: PLASMA [place] NE(INCLU FILTRATION /2021 No comment e ntered. IS [facility] DIANA RATE/1.73 Ordering Prov ider: CHRISTY RIBEIRO) SQ Report Released Date/Time: Jan 03, 2022 09:17 AM M.PREDICTE Reporting La b: [facility] D [VOLUME [address] [facility] [address] RATE/AREA] Performing L ab: [facility] IN SERUM, [address] [facility] [address] PLASMA OR BLOOD BY CREATININE -BASED FORMULA (CKD-EPI) LIPID CHOLESTERO 266 <199 - 199 12/28 H Specimen T ype: PLASMA [place] PANEL,NO L mg/dL /2021 Comment: [place] triglyceride result from a non- fasting specimen should be interpreted with caution. A fasting panel is recommended for accurate triglycerides when trigs are >200 from a non-fasting specimen. IS [facility] N-FASTIN [MASS/VOLU Ordering Pr ovider: CHRISTY RIBEIRO ME] IN Report Released Date/Time: Dec 28, 2021 11:57 AM SERUM OR Reporting Lab: [facility] PLASMA [address] [place] [facility] [address] Performing Lab: [facility] [address] [place] [address] LIPID CHOLESTERO 73 mg/dL 50 12/28 Specimen Typ e: PLASMA [place] PANEL,NO L IN HDL /2021 Comment: Elev ated triglyceride result from a non- fasting specimen should be interpreted with caution. A fasting panel is recommended for accurate triglycerides when trigs are >200 from a non-fasting specimen. IS [facility] N-FASTIN [MASS/VOLU Ordering Pr ovider: CHRISTY RIBEIRO G ME] IN Report Released Date/Time: Dec 28, 2021 11:57 AM SERUM OR Reporting Lab: [facility] PLASMA [place] [address] Performing Lab: [facility] [address] [facility] [place] [address] LIPID CHOLESTERO 149 <99 - 99 12/28 H Specimen Typ e: PLASMA [place] PANEL,NO L IN LDL mg/dL /2021 Comment: Elev ated triglyceride result from a non-fasting specimen should be interpreted with caution. A fasting panel is recommended for accurate triglycerides when trigs are >200 from a non-fasting specimen. IS [facility] N-FASTIN [MASS/VOLU Ordering Pr ovider: CHRISTY RIBEIRO] IN Report Released Date/Time: Dec 28, 2021 11:57 AM SERUM OR Reporting Lab: [facility] PLASMA BY [address] [facility] [address] CALCULATIO Performing L ab: [facility] N [address] [place] [facility] [address] LIPID CHOLESTERO 44 mg/dL <29 - 29 06/17 H Specimen Ty pe: PLASMA [place] PANEL,NO L IN VLDL /2021 Comment: [place] vated triglyceride result from a non- fasting specimen should be interpreted with caution. A fasting panel is recommended for accurate triglycerides when trigs are >200 from a non-fasting specimen. IS [facility] N-FASTIN [MASS/VOLU Ordering Pr ovider: CHRISTY RIBEIRO] IN Report Released Date/Time: Dec 28, 2021 11:57 AM SERUM OR Reporting Lab: [facility] PLASMA BY ONE [facility] [address] CALCULATIO Performing L ab: [facility] N [address] [facility] [address] [place] [facility] [address] LIPID CHOLESTERO 193 <129 - 129 06/17 H Specimen T ype: PLASMA [place] PANEL,NO L NON HDL mg/dL /2021 Comment: [place] vated triglyceride result from a non-fasting specimen should be interpreted with caution. A fasting panel is recommended for accurate triglycerides when trigs are >200 from a non-fasting specimen. IS [facility] N-FASTIN [MASS/VOLU Ordering Pr ovider: CHRISTY RIBEIRO] IN Report Released Date/Time: Dec 28, 2021 11:57 AM SERUM OR Reporting Lab: [facility] PLASMA [address] [place] [facility] [address] Performing Lab: [facility] [address] [facility] [place] [address] LIPID TRIGLYCERI 219 <149 - 149 06/17 H Specimen T ype: PLASMA [place] PANEL,NO [place] mg/dL /2021 Comment: [place] triglyceride result from a non- fasting specimen should be interpreted with caution. A fasting panel is recommended for accurate triglycerides when trigs are >200 from a non-fasting specimen. [facility] N-[facility]STIN [MASS/VOLU Ordering Pr ovider: CHRISTY RIBEIRO G ME] IN Report Released Date/Time: Dec 28, 2021 11:57 AM SERUM OR Reporting Lab: [facility] PLASMA [place] [address] Performing Lab: [facility] [place] [address] HEMOGLOB HEMOGLOBIN 5.4 4.0 - 6.0 12/28 Specimen T ype: BLOOD [place] IN A1C A1C/HEMOGL /2021 No comment en tered. [facility] OBIN.TOTAL Ordering Pro vider: CHRISTY RIBEIRO IN BLOOD Report Release d Date/Time: Dec 28, 2021 11:57 AM Reporting Lab: [facility] [address] [place] [address] Performing Lab: [facility] [address] [place] [address] FSH FOLLITROPI 39.22 12/28 Specimen Type : PLASMA [place] N m[IU]/mL /2021 Comment: [place] triglyceride result from a non-fasting specimen should be interpreted with caution. A fasting panel is recommended for accurate triglycerides when trigs are >200 from a non-fasting specimen. [facility] [UNITS/VOL Ordering Pro vider: CHRISTY RIBEIRO UME] IN Report Released Date/Time: Dec 28, 2021 11:57 AM SERUM OR Reporting Lab: [facility] [address] [place] [address] Performing Lab: [facility] [address] [place] [address] TSH THYROTROPI 1.49 0.35 - 12/28 Specimen Type : PLASMA [place] W/REFLEX N u[IU]/mL 4.94 /2021 Comment: Elev ated triglyceride result from a non-fasting specimen should be interpreted with caution. A fasting panel is recommended for accurate triglycerides when trigs are >200 from a non-fasting specimen. IS [facility] TO FREE [UNITS/VOL Ordering Pro vider: CHRISTY RIBEIRO T4 UME] IN Report Released Date/Time: Dec 28, 2021 11:57 AM SERUM OR Reporting Lab: [facility] [place] [address] Performing Lab: [facility] [place] [address] COVID-19 SENDOUT SENT 05/01 Specimen Type: NASOPHARYNGEAL [place] PANEL COVID /2019 Comment: ~For T est: COVID-19 PANEL [facility] ~ARC drive up [facility] Ordering Provid er: BERKLEY TRAYLOR Report Released Date/Time: May 01, 2020 10:30 AM Reporting Lab: [facility] [place] [address] Performing Lab: [facility] [place] [address] COVID-19 COVID-19 Not 05/01 Specimen Type: NASOPHARYNGEAL [place] PANEL ([facility]) Comment: ~For Test: COVID-19 PANEL [facility] ~ARC drive up [facility] Ordering Provid er: BERKLEY TRAYLOR Report Released Date/Time: May 01, 2020 10:30 AM Reporting Lab: [facility] [place] [address] Performing Lab: [facility] [place] [address] Vital Signs Combined list of inpatient and outpatient Vital Signs from Department of Defense and Veterans Affairs, ranging from 12 months to all on record, depending upon the facility. Vital Sign Value Date Comments Source SYSTOLIC BLOOD PRESSURE 111 12/28/2021 [place] [facility] 11:34:51 DIASTOLIC BLOOD PRESSURE 77 12/28/2021 [place] [facility] 11:34:51 PULSE OXIMETRY 97% 12/28/2021 [facility] 11:34:51 WEIGHT 138.3 12/28/2021 [facility] 11:34:51 BMI 23kg/m2 12/28/2021 [facility] 11:34:51 PAIN 4 12/28/2021 [facility] 11:34:51 HEIGHT 65.5 12/28/2021 [facility] 11:34:51 PULSE 113 12/28/2021 [facility] 11:34:51 RESPIRATION 18 12/28/2021 [facility] 11:34:51 SYSTOLIC BLOOD PRESSURE 142 09/19/2021 Marc DOBBINS DEPT OF 10:39:38 [facility] DIASTOLIC BLOOD PRESSURE 94 09/19/2021 Aileen DOBBINS DEPT OF 10:39:38 [facility] PULSE OXIMETRY 98% 09/19/2021 Marc HAIR DEPT OF 10:39:38 [facility] WEIGHT 141.1 09/19/2021 Marc DOBBINS DEPT OF 10:39:38 [facility] TEMPERATURE 97 09/19/2021 Marc DOBBINS DEPT OF 10:39:38 [facility] PULSE 100 09/19/2021 Marc DOBBINS DEPT OF 10:39:38 [facility] RESPIRATION 18 09/19/2021 Marc DOBBINS DEPT OF 10:39:38 [facility] Encounters Combined list of: 1) Encounters from Department of Veterans Affairs facilities going back up to the last 18 months, not all ID inpatient encounters are included; 2) Encounters from the Department of [facility] facilities going back up to 280 months. Location Location Encounter Encounter Reason Attending ADM DC Stat us Disposition Source Details Type Number For Provider Date Date Visit Outpatient [id number] [place] En[place] [id number] [facility] Outpatient [id number] 09/22 [place] En[place] [id number] [facility] HC PRO [id number] Diagnos DAHLIA 09/22 [place] PHONE CALL [id number] is: ZULLY R /2020 O [facility] [place] 11-20 MIN ICD-10- HCS CM Z30.09 Encount er for oth general cnsl and advice on contrac eption< br/>wit h Provide r Comment s: Encount er for other Wan Support Specialist ing and Advice on Contrac eption Outpatient [id number] [place] SANCHEZ 10/17 [place] Encounter [id number] EIVANESSA [facility] OFFICE O/P 17838-3 Diagnos ROZINA RIBEIRO 10/18 [place] EST MOD [id number] is: A /2020 [facility] 30-39 MIN ICD-10- HCS CM F17.218 Nicotin e depende nce, cigaret samantha, w oth disorde rs
with Provide r Comment s: Nicotin e Depende nce, Cigaret samantha, with other Nicotin e-Induc ed Disorde rs Outpatient [id number] 10/18 [place] Encounter [id number] [facility] OFFICE O/P [id number] EFRAIN Gonzalez 11/07 [place] EST MOD [id number] is: LL D [facility] 30-39 MIN ICD-10- HCS CM Z01.00 Encount er for exam of eyes and vision w/o abnorma l finding s
w ith Provide r Comment s: Encount er for exam of eyes and vision w/o abnorma l finding s Outpatient [id number] 11/10 [place] En[place] [id number] [facility] 50581-0.61 FRAAZ QUIÑONEZ 11/27 [place] Encounter [id number] [facility]DRA [facility] TYMPANOMET 02154-0.61 Diagnos KHANGAL 11/27 [place] RY [id number] is: EXANDRA [facility] ICD-10- HCS CM Z01.118 Encntr for exam of ears and hearing w oth abnorma l finding s
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<br/ >with Provide r Comment s: Other specifi ed school counselor ing Outpatient [id number] / [place] [id number] /2020 [facility] Outpatient 85558-3.61 05/01 [place] En[place] [id number] /2020 [facility] Outpatient 01495-5.61 08/03 [place] En[place] [id number] /2021 [facility] HC PRO 02075-8.61 Diagnos TANNA,NASH 09/05 [place] PHONE CALL [id number] is: RYL J [facility] [place] 5-10 MIN ICD-10- HCS CM 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 Encounter [id number] /2021 TOSHIA DOBBINS DEPT OF [facility] TARGETED 23145-5. JESUS 09/12 C .W. CASE [id number] VIRGIL A TOSHIA DOBBINS DEPT OF [facility] CASE 14111-2. JESUS 09/18 C.W. MANAGEMENT [id number] BRA TOSHIA DOBBINS DEPT OF [facility] Outpatient 38139-8.51 JESUS 09/18 C.W. Encounter [id number] BRA TOSHIA DOBBINS DEPT OF [facility] OFFICE O/P 55848-1.51 Diagnos ELLIOT PELAEZ 09/19 [facility]. NEW LOW [id number] is: R R /2021 T[place] 30-44 MIN ICD-10- YOUNG CM DEPT OF S52.125 [facility] A Nondisp fx of head of left radius, init for clos fx
with Provide r Comment s: Nondisp laced Fractur e of Head of left Radius, Initial Encount er for closed Fractur e Outpatient 53306-9.61 09/19 [place] En[place] [id number] /2021 [facility] HCS Outpatient 30758-9.61 11/06 [place] En[place] [id number] /2021 [facility] Outpatient 52290-9.61 12/12 [place] En[place] [id number] /2021 [facility] OFFICE O/P 73020-5.61 Diagnos ROZINA RIBEIRO 12/28 [place] EST MOD [id number] is: A [facility] 30-39 MIN ICD-10- HCS CM H60.8X3 Other otitis externa , bilater al
with Provide r Comment s: Other Otitis Externa , [place] [address]-3.61 Diagnos LIZET, 12/28 [place] DIG [id number] is: NORMA Xie /2021 [facility] ASSMT&MGMT ICD-10- HCS 5-10 CM H60.549 Acute eczemat oid otitis externa , unspeci fied ear<br/ >with Provide r Comment s: Acute Eczemat oid Otitis Externa , unspeci fied Ear Outpatient 32222-7.61 12/28 [place] En[place] [id number] /2021 [facility] HCS Outpatient 18685-8.61 01/03 [place] [id number] [facility] 28756-1.61 01/15 [place] En[place] [id number] [facility] Outpatient 89693-3.61 STEPH 01/15 [place] Encounter [id number] ,KELSI OL IS [facility] Outpatient 67890-0.61 CHRIS RANKIN 01/29 [place] Encounter [id number] HIA L [facility] Social History Combined list of available smoking, tobacco, and other social history [facility]. Social History Type Response Date Comment Source Tobacco smoking status CURRENT SMOKER 01/15/2022 [place] [facility] NHIS History of tobacco use ID-TOBACCO USER EVERY 12/28/2021 [facility] DAY History of tobacco use ID-TOBACCO USER EVERY 01/24/2021 [facility] DAY [facility] of [facility]2019 [facility] YE[facility] History of tobacco use CURRENT TOBACCO USER 11/11/2017 [facility] History of tobacco use CURRENT TOBACCO USER 05/16/2015 [facility] History of tobacco use CURRENT TOBACCO USER 09/16/2013 [facility] History of tobacco use CURRENT TOBACCO USER 03/18/2012 [facility] History of tobacco use CURRENT TOBACCO USER 09/17/2010 [facility] History of tobacco use CURRENT TOBACCO USER 03/22/2009 [facility] History of tobacco use CURRENT TOBACCO USER 03/28/2008 [facility] History of tobacco use CURRENT TOBACCO USER 05/04/2007 [facility] History of tobacco use CURRENT TOBACCO USER 05/04/2007 [facility] History of tobacco use CURRENT TOBACCO USER 08/07/2006 [facility] Plan of Care List of future care activities from [facility] facilities. Additional future care activities may be listed in the Assessment and Plan section. Date/Time Care Activity Care Activity Detail Facility 01/29/2022 AMBULATORY - NONE AMBULATORY - NONE [facility] Advance Directives List of completed, amended, or rescinded Advance Directives on record at [facility] facilities. An actual copy of the Directive is not included. Date Advance Directive Provider Source 04/22/[address] [facility]
--- OUTSIDE RECORDS SUMMARY | 2022-02-19 13:28 | XMS_ITS | Encounter Summary ---
:1975 Author Organization Department of [facility] rs Address [address] [place] [address] Care Team Providers Name Role Phone CHRISTY RIBEIRO Primary Care Provider Unavailable Selected Encounter This section includes the information on record at ID for the Encounter. Date/Time Encounter Type Encounter Description Reason Provider Source Sep 19, 2021 10:46 Outpatient Encounter ADMIN PAT ACTIVTIES AM (MASNONCT) IHE Encounter Template Text not used by ID Plan of Treatment: Future Appointments (+ 6 months) and Future Tests (+/- 45 days) The Plan of Treatment section includes future care activities for the patient from all ID treatmentfacilities. This section includes future appointments and future orders which are active, pending orscheduled.Future Appointments This section includes appointments that were scheduled to occur 6 months from the date of the Encounter, up to a maximum of 20 appointments. The data comes from all ID treatment facilities. Appointment Date/Time Appointment Type Appointment Facili ty Name Oct 10, 2021 10:15 AM AMBULATORY - NONE Marc DURBIN [facility] December 03, 2021 05:15 PM AMBULATORY - NONE [facility] Dec 28, 2021 11:00 AM AMBULATORY - MEDICINE [facility] Dec 28, 2021 12:30 PM AMBULATORY - NONE [facility] Jan 03, 2022 06:00 PM AMBULATORY - NONE [facility] Jan 04, 2022 10:15 AM AMBULATORY - NONE [facility] Jan 29, 2022 08:04 AM AMBULATORY - NONE [facility] Jan 29, 2022 09:15 AM AMBULATORY - NONE [facility] Social History: Smoking Status (Most current) and Tobacco Use (All prior to encounter date) This section includes the most current, and the historical, smoking and tobacco-related health factors from the ID facility where the Encounter took place.Current Smoking Status This section includes the most current smoking, or tobacco-related health factor, from the ID facility where the Encounter took place. Date/Time Current Smoking Status Comment Facility Jan 24, 2021 10:00 AM VA-TOBACCO USER EVERY DAY [facility] Tobacco Use History This section includes a history of the smoking, or tobacco- related health factors, that were collected on or before the date of the Encounter. The data comes from the ID facility where the Encounter took place. 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 [facility] Jan 24, 2021 10:00 AM VA-TOBACCO USE MED NO [facility] Jan 24, 2021 10:00 AM VA-TOBACCO USE WI 30 MIN OF WAKEUP [facility] Jan 24, 2021 10:00 AM VA-TOBACCO USER EVERY DAY [facility] Aug 25, 2019 12:31 PM VA-TOBACCO FORMER USER MIN [facility] Aug 25, 2019 12:31 PM VA-TOBACCO QUIT < 1 YEAR [facility] November 11, 2017 08:04 AM CURRENT TOBACCO USER [facility] May 16, 2015 12:39 PM CURRENT TOBACCO USER [facility] Sep 16, 2013 11:37 AM CURRENT TOBACCO USER [facility] Mar 18, 2012 07:44 AM CURRENT TOBACCO USER [facility] Sep 17, 2010 09:11 AM CURRENT TOBACCO USER [facility] Mar 22, 2009 08:43 AM CURRENT TOBACCO USER [facility] Mar 28, 2008 11:14 AM CURRENT TOBACCO USER [facility] May 04, 2007 11:39 AM CURRENT TOBACCO USER [facility] May 04, 2007 11:34 AM CURRENT TOBACCO USER [facility] Aug 07, 2006 09:27 AM CURRENT TOBACCO USER [facility] Advance Directives: All historical and current Section Date Range: From patient's date of to the date document was created. This section includes ALL of a patient's completed or amended ID Advance and Rescinded Directives. The entries below indicate that a directive exists for the patient, but an actual copy is not included with this document. The data comes from all ID facilities. Date Advance Directives Provider Source Apr 22, 2003 ADVANCE DIRECTIVE LUZ ASHBY [facility] Radiology Reports: +/- 30 days of the encounter Radiology Reports For cases when an order for radiology services may have been completed prior to the date of the Encounter, the report list includes the Radiology Reports that were completed up to 30 days before date of the Encounter. For cases when an order for radiology services may have been completed after the date of the Encounter, the report list also includes the Radiology Reports that were completed up to 30days after date of the Encounter. The data comes from all ID treatment facilities. Date/Time Radiology Report Provider Source Sep 18, 2021 10:42 AM WRIST (LEFT) 3 OR MORE VIEWS: [facility] [id number] -1975 F Exm Date: SEP 18, 2021@10:42 Req Phys: JACQUELIN RASCON Pat Loc: [facility] NRS-E O (Req'g Loc) Img Loc: [facility] Service: Unknown Screen: Patient answered no (Case [id number] COMPLE TE)WRIST (LEFT) 3 OR MORE VIEWS (RAD Detailed) CPT:00722 Proc Modifiers : LEFT CPT Modifiers : LT LEFT SIDE Reason for Study: GLF Clinical History: from note in cprs dated 09/08/21: Patient is a [age]-year-old female who sustained a fall 3 days ago and injured her left ankle and left elbow. She has discomfort left elbow with attempts at extension. She is weightbearing but has develop ed swelling and bruising lateral aspect left ankle. Denies othe r injuries. written results from xray: FINDINGS: 3 views ob tained. The alignment is normal. There is a possible no ndisplaced fracture of the coronoid process. There is no d islocation. There are no focal lytic or sclerotic lesions. There is an elbow joint effusion. There is no radiopaque foreign body. Impression: Elbow joint effusion. Possible nond isplaced fracture of the coronoid process. Vet also stated she is experiencing wrist pain now too. Report Status: Verified Date Reported: SEP 18, 2021 Date Verified: SEP 18, 2021 Road Machine Runner E-Sig:/ES/PERNELL TRUJILLO MD Report: Left wrist 4 views no comparison available. No acute fracture, dislocation or instability d etected. Joint spaces are maintained Impression: No acute fracture detected. Primary Diagnostic Code: NO ALERT REQUIRED Primary Interpreting Staff: PERNELL TRUJILLO MD, RADIOLOGY (Road Machine Runner) /JJO Sep 18, 2021 10:42 AM FOREARM (LEFT): PERNELL TRUJILLO [facility] [place] [id number] -1975 F Exm Date: SEP 18, 2021@10:42 Req Phys: JACQUELIN RASCON Loc: [facility] NRS-E O (Req'g Loc) Img Loc: [facility] Service: Unknown Screen: Patient answered no (Case [id number] COMPLETE)FOREARM (LEFT) (R AD Detailed) CPT:00052 Proc Modifiers : LEFT CPT Modifiers : LT LEFT SIDE Reason for Study: GLF Clinical History: from note in cprs dated 09/08/21: Patient is a [age]-year-old female who sustained a fall 3 days ago and injured her left ankle and left elbow. She has discomfort left elbow with attempts at extension. She is weightbearing but has develop ed swelling and bruising lateral aspect left ankle. Denies othe r injuries. written results from xray: FINDINGS: 3 views ob tained. The alignment is normal. There is a possible no ndisplaced fracture of the coronoid process. There is no d islocation. There are no focal lytic or sclerotic lesions. There is an elbow joint effusion. There is no radiopaque foreign body. Impression: Elbow joint effusion. Possible nond isplaced fracture of the coronoid process. Vet also stated she is experiencing wrist pain now too. Report Status: Verified Date Reported: SEP 18, 2021 Date Verified: SEP 18, 2021 Road Machine Runner E-Sig:/ES/PERNELL TRUJILLO MD Report: Left forearm 2 views no comparison available. No fracture of the shafts or distal portions of the radius or ulna detected. There is a flattening lucent manoj e in the articulating surface of the head of the radius consistent with a nondisplaced fracture. I do not detect a fractu re of the olecranon. Impression: Nondisplaced fracture head of the radius Primary Diagnostic Code: SIGNIFICANT ABNORMALIT Y, ATTN NEEDED Primary Interpreting Staff: PERNELL TRUJILLO MD, RADIOLOGY (Road Machine Runner) /JJO Sep 18, 2021 10:42 AM ELBOW (LEFT) 3 OR MORE VIEWS: PERNELL TRUJILLO [facility] [place] [place] [id number] -1975 F Exm Date: SEP 18, 2021@10:42 Req Phys: JACQUELIN RASCON Loc: [facility] NRS-E O (Req'g Loc) Img Loc: [facility] Service: Unknown Screen: Patient answered no (Case [id number] COMPLE TE)ELBOW (LEFT) 3 OR MORE VIEWS (RAD Detailed) CPT:05777 Proc Modifiers : LEFT CPT Modifiers : LT LEFT SIDE Reason for Study: GLF Clinical History: from note in cprs dated 09/08/21: Patient is a [age]-year-old female who sustained a fall 3 days ago and injured her left ankle and left elbow. She has discomfort left elbow with attempts at extension. She is weightbearing but has develop ed swelling and bruising lateral aspect left ankle. Denies othe r injuries. written results from xray: FINDINGS: 3 views ob tained. The alignment is normal. There is a possible no ndisplaced fracture of the coronoid process. There is no d islocation. There are no focal lytic or sclerotic lesions. There is an elbow joint effusion. There is no radiopaque foreign body. Impression: Elbow joint effusion. Possible nond isplaced fracture of the coronoid process. Vet also stated she is experiencing wrist pain now too. Report Status: Verified Date Reported: SEP 18, 2021 Date Verified: SEP 18, 2021 Road Machine Runner E-Sig:/ES/PERNELL TRUJILLO MD Report: Left elbow 4 views no comparison available Patient has had a ground-level fall There is a nondisplaced fracture of the head of the radius. No fracture of the ulna detected or dislocation se en. I do not see a posterior fat pad sign Impression: Nondisplaced fracture head of the radius Primary Diagnostic Code: SIGNIFICANT ABNORMALIT Y, ATTN NEEDED Primary Interpreting Staff: PERNELL TRUJILLO MD, RADIOLOGY (Road Machine Runner) /JJO Encounter Notes: All associated encounter notes This section contains the clinical notes associated to the Encounter. Date/Time Encounter Note(s) Provider Source Sep 19, 2021 10:47 AM COMMUNITY DEVELOPMENT AIDE REFERRAL NOTE: FABY WHITE [facility] LOCAL TITLE: TRAVELING PROGRESS NOTE STANDARD TITLE: COMMUNITY DEVELOPMENT AIDE REFERRAL NOTE DATE OF NOTE: SEP 19, 2021@10:47 ENTRY DATE: SEP 19, 2021@10:47:04 AUTHOR: FABY WHITE EXP COSIGNER: URGENCY: STATUS: COMPLETED Traveling [place] Consult Ortho request complete d by [facility] and the note/results are available in JL. /prerna/ FABY WHITE REGISTERED NURSE Signed: 09/19/2021 10:47 Receipt Acknowledged By: 09/19/2021 10:49 /es/ CHRISTY RIBEIRO M.D. STAFF PHYSICIAN
--- OUTSIDE RECORDS SUMMARY | 2022-02-19 13:28 | XMS_ITS | Encounter Summary ---
:1975 Author Organization Department of [facility] rs Address [address] [place] [address] Care Team Providers Name Role Phone CHRISTY RIBEIRO Primary Care Provider Unavailable Selected Encounter This section includes the information on record at [place] for the Encounter. Date/Time Encounter Type Encounter Reason Provider Source Description Jan 15, 2022 09:37 Outpatient TELEPHONE/ANCILLARY FRANCISCO STACY AM Encounter LE IHE Encounter Template Text not used by ND Plan of Treatment: Future Appointments (+ 6 months) and Future Tests (+/- 45 days) The Plan of Treatment section includes future care activities for the patient from all [place] treatmentfacilities. This section includes future appointments and future orders which are active, pending orscheduled.Future Appointments This section includes appointments that were scheduled to occur 6 months from the date of the Encounter, up to a maximum of 20 appointments. The data comes from all [place] treatment facilities. Appointment Date/Time Appointment Type Appointment Facili ty Name Jan 29, 2022 08:04 AM AMBULATORY - NONE [facility] Jan 29, 2022 09:15 AM AMBULATORY - [facility] Lab Results: +/- 30 days of the encounter This section includes the Chemistry and Hematology Lab Results on record with ND for the patient. Radiology Reports and Pathology Reports are provided separately, in subsequent sections.Lab Results This section contains the Chemistry/Hematology Results that were resulted 30 days before or 30 daysafter the date of the Encounter. Date/Time Source Result Type Result - Unit Interpretation Reference Range Comment Jan 29, 2022 09:07 AM [facility] ALT/SGPT Specim en Type: PLASMA No comment enter ed. Ordering Provid er: CHRISTY RIBEIRO Report Released Date/Time: Jan 03, 2022 09:17 AM Reporting Lab: [facility] [address] [facility] [address] Performing Lab: [facility] [address] [facility] [address] ALT/SGPT 12 U/L <55 Jan 29, 2022 09:07 AM [facility] AST/SGOT Specim en Type: PLASMA No comment enter ed. Ordering Provid er: CHRISTY RIBEIRO Report Released Date/Time: Jan 03, 2022 09:17 AM Reporting Lab: [facility] [address] [facility] [address] Performing Lab: [facility] [address] [facility] [address] AST/SGOT 17 U/L <34 Jan 29, 2022 09:07 AM [facility] CBC Specim en Type: BLOOD No comment enter ed. Ordering Provid er: CHRISTY RIBEIRO Report Released Date/Time: Jan 03, 2022 09:17 AM Reporting Lab: [facility] [address] [facility] [address] Performing Lab: [facility] [address] [facility] [address] WBC 8.61 10*3/uL 4.0-11.0 RBC 4.53 10*6/uL 4.0-5.4 HGB 15.0 g/dL 11.5-16 HCT 44.6 34.5-48 MCV 98.5 fL 80-100 MCH 33.1 pg H 27-33 MCHC 33.6 g/dL 32.0-37.5 PLT 271 10*3/uL 150-400 MPV 9.5 fL 7.4-10.4 RDW 13.2 11.5-14.5 Jan 29, 2022 [facility] CREATININE(INCLUDES EGFR) Sp ecimen Type: PLASMA 09:07 AM No comment enter ed. Ordering Provid er: CHRISTY RIBEIRO Report Released Date/Time: Jan 03, 2022 09:17 AM Reporting Lab: [facility] [address] [facility] [address] Performing Lab: [facility] [address] [facility] [address] CREATININE 0.6 mg/dL 0.5-1.0 CREAT EGFR(CKD-EPI) >90 >60 Dec 28, 2021 [facility] LIPID PANEL,NON-FASTING Spec imen Type: PLASMA 12:50 PM Comment: Elevat ed triglyceride result from a non-fasting specimen should be interpreted with caution. A fasting panel is recommended for accurate triglycerides when trigs are >200 from a non-fasting specimen. Ordering Provid er: CHRISTY RIBEIRO Report Released Date/Time: Dec 28, 2021 11:57 AM Reporting Lab: [facility] [address] [facility] [address] Performing Lab: [facility] [address] [facility] [address] CHOLESTEROL 266 mg/dL H <199 .HDL 73 mg/dL >50 LDL CALCULATION 149 mg/dL H <99 VLDL CALCULATION 44 mg/dL H <29 NON HDL CHOLESTEROL 193 mg/dL H <129 TRIG(NON FASTING) 219 mg/dL H <149 Dec 28, 2021 12:50 PM [facility] HEMOGLOBIN A1C Specim en Type: BLOOD No comment enter ed. Ordering Provid er: CHRISTY RIBEIRO Report Released Date/Time: Dec 28, 2021 11:57 AM Reporting Lab: [facility] [address] [facility] [address] Performing Lab: [facility] [address] [facility] [address] HEMOGLOBIN A1C 5.4 4.0-6.0 Dec 28, 2021 12:50 PM [facility] FSH Specim en Type: PLASMA Comment: Elevat ed triglyceride result from a non-fasting specimen should be interpreted with caution. A fasting panel is recommended for accurate triglycerides when trigs are >200 from a non-fasting specimen. Ordering Provid er: CHRISTY RIBEIRO Report Released Date/Time: Dec 28, 2021 11:57 AM Reporting Lab: [facility] [address] [facility] [address] Performing Lab: [facility] [address] [facility] [address] FSH 39.22 m[IU]/mL Dec 28, 2021 12:50 [facility] TSH W/REFLEX TO FREE Spec imen Type: PLASMA PM T4 Comment: Elevat ed triglyceride result from a non-fasting specimen should be interpreted with caution. A fasting panel is recommended for accurate triglycerides when trigs are >200 from a non-fasting specimen. Ordering Provid er: CHRISTY RIBEIRO Report Released Date/Time: Dec 28, 2021 11:57 AM Reporting Lab: [facility] [address] [place] [facility] [address] Performing Lab: [facility] [address] [facility] [address] TSH 1.49 u[IU]/mL 0.35-4.94 Social History: Smoking Status (Most current) and Tobacco Use (All prior to encounter date) This section includes the most current, and the historical, smoking and tobacco-related health factors from the [place] facility where the Encounter took place.Current Smoking Status This section includes the most current smoking, or tobacco-related health factor, from the [place] facility where the Encounter took place. Date/Time Current Smoking Status Comment Facility Jan 15, 2022 09:37 AM CURRENT SMO[facility]ER [facility] Tobacco Use History This section includes a history of the smoking, or tobacco- related health factors, that were collected on or before the date of the Encounter. The data comes from the [place] facility where the Encounter took place. Date/Time Smoking Status/Tobacco Use Comment Tom leon Dec 28, 2021 11:00 AM VA-TOBACCO USE > 15 LESS THAN 30 [facility] YEARS Dec 28, 2021 11:00 AM [facility] Dec 28, 2021 11:00 AM VA-TOBACCO USE COR[place] MAKER NO [facility] Dec 28, 2021 11:00 AM VA-TOBACCO USE MED YES [facility] Dec 28, 2021 11:00 AM VA-TOBACCO USE WI 30 MIN OF WAKEUP [facility] Dec 28, 2021 11:00 AM VA-TOBACCO USER EVERY DAY [facility] Jan 24, 2021 10:00 AM VA-TOBACCO USE > 15 LESS THAN 30 [facility] YEARS Jan 24, 2021 10:00 AM [facility] Jan 24, 2021 10:00 AM VA-TOBACCO USE [place] MAKER NO [facility] Jan 24, 2021 10:00 AM VA-TOBACCO USE MED NO [place] [facility] Jan 24, 2021 10:00 AM VA-TOBACCO USE WI 30 MIN OF WAKEUP [facility] Jan 24, 2021 10:00 AM VA-TOBACCO USER EVERY DAY [facility] Aug 25, 2019 12:31 PM VA-TOBACCO FORMER USER [facility] Aug 25, 2019 12:31 PM VA-TOBACCO QUIT < 1 YEAR M CHARLIE [facility] November 11, 2017 08:04 AM CURRENT TOBACCO US[facility] May 16, 2015 12:39 PM CURRENT TOBACCO USER [facility] Sep 16, 2013 11:37 AM CURRENT TOBACCO USER [facility] Mar 18, 2012 07:44 AM CURRENT [facility]BACCO USER [facility] Sep 17, 2010 09:11 AM CURRENT TOBACCO USER [facility] Mar 22, 2009 08:43 AM CURRENT TOBACCO USER [facility] Mar 28, 2008 11:14 AM CURRENT TOBACCO USER [facility] May 04, 2007 11:39 AM CURRENT TOBACCO USER [facility] May 04, 2007 11:34 AM CURRENT TOBACCO USER [facility] Aug 07, 2006 09:27 AM CURRENT TOBACCO USER [facility] Advance Directives: All historical and current Section Date Range: From patient's date of to the date document was created. This section includes ALL of a patient's completed or amended [place] Advance and Rescinded Directives. The entries below indicate that a directive exists for the patient, but an actual copy is not included with this document. The data comes from all [place] facilities. Date Advance Directives Provider Source Apr 22, 2003 ADVANCE DIRECTIVE LUZ ASHBY [facility] Pathology Reports: +/- 30 days of the [...] the Encounter. The data comes from all [place] treatment facilities. Date/Time Pathology Report Provider Source Dec 28, 2021 12:44 PM LR [facility] Reporting Lab: [facility] [CLIA# [id number]] [place] [address] Accession [UID]: [id number] [[id number]] Receive d: Dec 28, 2021@12:44 Collection sample: CLIPPINGS Collection date: 2021 12:44 Site/Specimen: NAIL Provider: CHRISTY RIBEIRO Comment on specimen: RECEIVED IN STERILE CUP Test(s) ordered: HUANG FUNGAL PREP....... ........ completed: Jan 01, 2022 10:17 MYCOLOGY CULTURE.............. completed: Jan [id number] * MYCOLOGY FINAL REPORT => Jan 25, 2022 10:09 TE CODE: [id number] MYCOLOGY SMEAR/PREP: HUANG PREP: 1+ SEPTATE HYPHAE, 3-4 MICRONS WIDE CULTURE PENDING Fungus/Yeast: NO DERMATOPHYTES ISOLATED Mycology Remark(s): THIS REPORT IS FINAL =--=--=--=--=--=--=--=--=--=--=--=--=--= --=--=--=--=--=--=--=--=--=--=--=--=-- Performing Laboratory: Mycology Report Performed By: [facility] [CLIA# [id number]] [place] [address] Encounter Notes: All associated encounter notes This section contains the clinical notes associated to the Encounter. Date/Time Encounter Note(s) Provider Source Jan 15, 2022 09:37 [facility] NOTE: KELSI CHOI [facility] TITLE: CERVICAL CANCER RISK SCORING STANDARD TITLE: [facility] NOTE DATE OF NOTE: JAN 15, 2022@09:37 ENTRY DATE: JAN 15, 2022@09:38:02 AUTHOR: KELSI CHOI EXP COSIGNER: URGENCY: STATUS: COMPLETED Cervical Cancer Risk Screen Patient eligible for cervical cancer screening Yes List in chronological order from most recent re sults: Normal: 09/07/2019 PAP NILM/HPV Neg Normal: 10/14/2013 PAP NILM/HPV Neg Normal: 6137-6167 3 PAPs, all NILM Normal: 05/04/2007 PAP NILM/ECC Neg Abnormal: 08/01/2005 PAP LGSIL Normal: 3624-8750 2 PAPs, both NILM -Results of colposcopic biopsies based on each abnormal PAP: 09/23/2005 LEEP No CHELI/ECC Neg 08/08/2005 Colposcopy CHELI II,III, ECC-insufficie nt tissue Immunosuppression: No Present smoker: Yes Years smoked: approximately 20 years Packs per day: 1 PPD. 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 Next due for co-test in 3 years, 08/2022 /prerna/ KELSI CHOI RN REGISTERED NURSE Signed: 01/15/2022 09:48
--- OUTSIDE RECORDS SUMMARY | 2022-02-19 13:28 | XMS_ITS | Encounter Summary ---
:1975 Author Organization Department of [facility] rs Address [address] [place] [address] Care Team Providers Name Role Phone CHRISTY RIBEIRO Primary Care Provider Unavailable Selected Encounter This section includes the information on record at MD for the Encounter. Date/Time Encounter Type Encounter Reason Provider Source Description Sep 18, 2021 11:05 CASE MANAGEMENT ADMIN PAT ACTIVTIES SONU SHIRLEY AM (LASHAECT) Daisha Encounter Template Text not used by MD Plan of Treatment: Future Appointments (+ 6 months) and Future Tests (+/- 45 days) The Plan of Treatment section includes future care activities for the patient from all [place] treatmentfacilities. This section includes future appointments and future orders which are active, pending orscheduled.Future Appointments This section includes appointments that were scheduled to occur 6 months from the date of the Encounter, up to a maximum of 20 appointments. The data comes from all MD treatment facilities. Appointment Date/Time Appointment Type Appointment Facili ty Name Sep 19, 2021 10:40 AM AMBULATORY - SURGERY Marc Mcclellan [facility] Oct 10, 2021 10:15 AM AMBULATORY - NONE Marc DURBIN [facility] December 03, 2021 05:15 PM AMBULATORY - NONE [facility] Dec 28, 2021 11:00 AM AMBULATORY - MEDICINE [facility] Dec 28, 2021 12:30 PM AMBULATORY - NONE [facility] Jan 03, 2022 06:00 PM AMBULATORY - NONE [facility] Jan 04, 2022 10:15 AM AMBULATORY - [facility] Jan 29, 2022 08:04 AM AMBULATORY - [facility] Jan 29, 2022 09:15 AM AMBULATORY - [facility] Advance Directives: All historical and current Section Date Range: From patient's date of to the date document was created. This section includes ALL of a patient's completed or amended MD Advance and Rescinded Directives. The entries below indicate that a directive exists for the patient, but an actual copy is not included with this document. The data comes from all MD facilities. Date Advance Directives Provider Source Apr 22, 2003 ADVANCE DIRECTIVE ISMALUZ Paige [facility] Radiology Reports: +/- 30 days of [...] the Encounter. The data comes from all [place] treatment facilities. Date/Time Radiology Report Provider Source Sep 18, 2021 10:42 AM WRIST (LEFT) 3 OR MORE VIEWS: [facility]LI [facility]CH [id number] -1975 F Exm Date: SEP 18, 2021@10:42 Req Phys: JACQUELIN RASCON Pat Loc: [facility] NRS-E O (Req'g Loc) Img Loc: [facility] Service: Unknown Screen: Patient answered no (Case [id number] COMPLE TE)WRIST (LEFT) 3 OR MORE VIEWS (RAD Detailed) CPT:20954 Proc Modifiers : LEFT CPT Modifiers : [...] 18, 2021 Date Verified: SEP 18, 2021 Reduction Plant Supervisor E-Sig:/ES/PERNELL TRUJILLO MD Report: Left wrist 4 views no comparison available. No acute fracture, dislocation or instability d etected. Joint spaces are maintained Impression: No acute fracture detected. Primary Diagnostic Code: NO ALERT REQUIRED Primary Interpreting Staff: PERNELL TRUJILLO MD, RADIOLOGY (Reduction Plant Supervisor) /JJO Sep 18, 2021 10:42 AM FOREARM (LEFT): PERNELL TRUJILLO ON [facility] CHELI FITCH [id number] -1975 F Exm Date: SEP 18, 2021@10:42 Req Phys: JACQUELIN RASCON Pat Loc: [facility] NRS-E O (Req'g Loc) Img Loc: [facility] Service: Unknown Screen: Patient answered no (Case [id number] COMPLETE)FOREARM (LEFT) (R AD Detailed) CPT:67833 Proc Modifiers : LEFT CPT Modifiers : [...] 18, 2021 Date Verified: SEP 18, 2021 Reduction Plant Supervisor E-Sig:/ES/PERNELL TRUJILLO MD Report: Left forearm 2 [...] Primary Interpreting Staff: PERNELL TRUJILLO MD, RADIOLOGY (Reduction Plant Supervisor) /JJO Sep 18, 2021 10:42 AM ELBOW (LEFT) 3 OR MORE VIEWS: PERNELL TRUJILLO [facility] CHELI FITCH [id number] -1975 F Exm Date: SEP 18, 2021@10:42 Req Phys: JACQUELIN RASCON Pat Loc: [facility] NRS-E O (Req'g Loc) Img Loc: [facility] Service: Unknown Screen: Patient answered no (Case [id number] COMPLE TE)ELBOW (LEFT) 3 OR MORE VIEWS (RAD Detailed) CPT:72150 Proc Modifiers : LEFT CPT Modifiers : [...] 18, 2021 Date Verified: SEP 18, 2021 Reduction Plant Supervisor E-Sig:/ES/PERNELL TRUJILLO MD Report: Left elbow 4 [...] Primary Interpreting Staff: PERNELL TRUJILLO MD, RADIOLOGY (Reduction Plant Supervisor) /JJO Encounter Notes: All associated encounter notes This section contains the clinical notes associated to the Encounter. Date/Time Encounter Note(s) Provider Source Sep 18, 2021 11:05 AM [facility] MASTER NOTE: SONU AVILEZ DEPT LOCAL TITLE: TRAVELING COORD NOTE OF [facility] STANDARD TITLE: [facility] MASTER NOTE DATE OF NOTE: SEP 18, 2021@11:05 ENTRY DATE: SEP 18, 2021@11:05:46 AUTHOR: SONU AVILEZ EXP COSIGNER: URGENCY: STATUS: COMPLETED Forwarded IFC to ortho - xray was completed toda y (09/18/21): Reason For Request: Traveling [place]: 's destination address: [address] [place] [address] 's telephone number: [phone] Approximate date of departure: Jul Approximate date of return: November Reason for Request: Reason for Request: fractured left elbow /prerna/ SONU AVILEZ, [place] REGISTERED NURSE Signed: 09/18/2021 11:06
--- OUTSIDE RECORDS SUMMARY | 2022-02-19 13:29 | XMS_ITS | Encounter Summary ---
:1975 Author Organization Department of [facility] rs Address [address] [place] [address] Care Team Providers Name Role Phone CHRISTY RIBEIRO Primary Care Provider Unavailable Selected Encounter This section includes the information on record at OR for the Encounter. Date/Time Encounter Type Encounter Reason Provider Source Description Mar 08, 2021 HC PRO PHONE TELEPHONE TRIAGE ICD-10-CM Z71.89 Rojas WILKERSON 02:08 PM CALL 11-20 MIN Other specified NE counseling with Provider Comments: Other specified counseling IHE Encounter Template Text not used by OR Assessments - Encounter Diagnoses This section includes the primary and secondary diagnoses documented for the Encounter. Date/Time Primary/Secondary Diagnosis Name Provider Source Diagnosis Mar 08, 2021 PRIMARY Other specified JOHN WILKERSON OR 02:08 PM counseling NE [facility] Plan of Treatment: Future Appointments (+ 6 months) and Future Tests (+/- 45 days) The Plan of Treatment section includes future care activities for the patient from all [place] treatmentfacilities. This section includes future appointments and future orders which are active, pending orscheduled.Future Appointments This section includes appointments that were scheduled to occur 6 months from the date of the Encounter, up to a maximum of 20 appointments. The data comes from all [place] treatment facilities. Appointment Date/Time Appointment Type Appointment Facili ty Name Mar 17, 2021 10:01 AM AMBULATORY - NONE [facility] May 25, 2021 09:30 AM AMBULATORY - NONE [facility] Social History: Smoking Status (Most current) and Tobacco Use (All prior to encounter date) This section includes the most current, and the historical, smoking and tobacco-related health factors from the [place] facility where the Encounter took place.Current Smoking Status This section includes the most current smoking, or tobacco-related health factor, from the [place] facility where the Encounter took place. Date/Time Current Smoking Status Comment Facility Jan 24, 2021 10:00 AM VA-TOBACCO USER EVERY DAY [facility] Tobacco Use History This section includes a history of the smoking, or tobacco- related health factors, that were collected on or before the date of the Encounter. The data comes from the [place] facility where the Encounter took place. 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 Aug 25, 2019 12:31 PM VA-TOBACCO QUIT < 1 YEAR M [facility] November 11, 2017 08:04 AM CURRENT TOBACCO USER [facility] May 16, 2015 12:39 PM CURRENT TOBACCO USER [facility] Sep 16, 2013 11:37 AM CURRENT TOBACCO USER [facility] Mar 18, 2012 07:44 AM CURRENT TOBACCO USER [facility] Sep 17, 2010 09:11 AM CURRENT TOBACCO USER [facility] Mar 22, 2009 08:43 AM CURRENT TOBACCO USER [facility] Mar 28, 2008 11:14 AM CURRENT TOBACCO USER [facility] May 04, 2007 11:39 AM CURRENT TOBACCO USER [facility] May 04, 2007 11:34 AM CURRENT TOBACCO USER [facility] Aug 07, 2006 09:27 AM CURRENT TOBACCO USER [facility] Advance Directives: All historical and current Section Date Range: From patient's date of to the date document was created. This section includes ALL of a patient's completed or amended [place] Advance and Rescinded Directives. The entries below indicate that a directive exists for the patient, but an actual copy is not included with this document. The data comes from all [place] facilities. Date Advance Directives Provider Source Apr 22, 2003 ADVANCE DIRECTIVE LUZ ASHBY [facility] Encounter Notes: All associated encounter notes This section contains the clinical notes associated to the Encounter. Date/Time Encounter Note(s) Provider Source Mar 08, 2021 02:08 PM NURSING TELEPHONE ENCOUNTER NOTE: NOEL WILKERSON [facility] LOCAL TITLE: TELEPHONE CARE NURSE TRIAGE STANDARD TITLE: NURSING TELEPHONE ENCOUNTER NOTE DATE OF NOTE: MAR 08, 2021@14:08:18 ENTRY DATE: MAR 08, 2021@14:29:42 AUTHOR: NOEL WILKERSON EXP COSIGNER: URGENCY: STATUS: COMPLETED TELEPHONE CARE NURSE TRIAGE Has ADDENDA Chief Complaint: Lump Under The Skin The following identifiers were used to verify th is patient: . SSN. Comments: Clinical Contact/Call Center Coronavirus Disease 2019 (COVID-19) Screen, angelia. November 2020 DIAGNOSIS AND TESTING STATUS: Has [place] been diagnosed with COVID-19: () Yes* Date: (continue screening) (x) No (Continue Screening) Comment(s): Is [place] waiting for COVID-19 test results: () Yes (Continue Screening) (x) No (Continue Screening) Comment: SCREEN: Signs and Symptoms: a. Fever or chills: () Yes Check all that apply: () Fever () Chills (x) No Comment(s): b. New or worsening cough or shortness of breat h: () Yes Check all that apply: () Cough () Shortness of breath (Dyspnea) (x) No Comment(s): c. Any cold or flu-like symptoms: () Yes Check all that apply: () Cold like symptoms () Runny Nose (Rhinorrhea) () Sore Throat () Flu-like symptoms () Fatigue () Muscle Pain (Myalgia) (x) No Comment(s): d. New onset diarrhea, nausea or vomiting: () Yes Check all that apply: () Diarrhea () Nausea () Vomiting (x) No Comment(s): e. New onset headache, loss of taste or loss of smell () Yes Check all that apply: () Headache () Loss of taste () Loss of smell (x) No Comment(s): EXPOSURE: Exposure (within 6 feet for more than 15 minute s) in the last two weeks (14 days) to someone with known or alireza pected case of COVID-19: () Yes (x) No Comment(s): SCREEN RESULT: Any symptom or exposure= positiv e screen () POSITIVE SCREEN: Patient has a Positive symp elvin and/or exposure. Follow- up required. (x)) Negative Screen NURSES NOTES PATIENT CONCERN/DURATION/ONSET: [place] reports that she is prone to fatty cysts and she has one on the right side of her n javier below her right ear for many years. reports that the cyst is nuno wing is reddened, painful and warm to the touch for two days. No drain age Denies any fever,sweats or chills. Reports the is of a quarter and sticks out about the side of her finger. is in [place] and will not be back until next week. WHAT HAS PATIENT TRIED TO TR EAT THE SYMPTOMS: Warm packs and Ibuprofen decrease the pain to manageable 2/10. HISTORY/PREVIOUS TREATMENT: Fibromyalgia,osteoar thritis. WHAT IS PATIENT GOAL FOR THE CALL: Evaluation/tr eatment. DID YOU CONSIDER USING CCC LIP (TELE or VVC): No , [place] is out of town. WHOLESALER DISPOSITION: Triage recommendation is to seek care in the local Urgent for evaluation utiliz ing the [place] Act because of symptom duration and [place] is out of town. agreeable to charles n of care. to seek care in the emergency department if symptoms wor sen. verbalizes understanding of education and plan of care by t each back method. [place] Act information given: [facility] [address] [place] [address] Main number: [phone] [facility] [address] [place] [address] Main number: [phone] (Caller could accurately sum marize the agreed upon plan of care as discussed in the education log portion of this note.) Per policy, automated recommendations for an cirilo ointment indicates an interaction (virtual or in-person) with the care team. Triage Note Phone Triage FriMar 08 2021 14:12:12 GMT-0500 ([place] ght Time) Demographics 46 y/o Female Results CC: Lump Under The Skin Nurse Recommendation: 12-24 Hours TEDP Suggestion: 12-24 Hours Nurse Recommended Follow-up Location: Urgent ca re center, non-VA TEDP Suggested Follow-up Location[facility] [place] Modifier: Symptom Duration Values and Measures Pain scale: 6 Duration of CC: 1 Days Positive Responses HPI: erythema, around the lump or bump HPI: skin lump or papule, painful, worsening HPI: skin lump or papule, swelling, worsening HPI: skin lump or papule, tenderness, worsening Negative Responses Denies: HPI: red streaks, from a lump or bump Denies: HPI: severe pain Denies: HPI: skin lump or papule, with purulent drainage Denies: HPI: skin lump, firm, on margin of eyel id Denies: HPI: vomiting Denies: MEDS: chemotherapy Denies: PMH: diabetes Denies: PMH: HIV positive Denies: PSH: organ transplant Education Log Home care for a skin abscess includes: - Rest - Apply warm compresses:Apply for 20-30 minutes , every 4 hours. - Clean the skin thoroughly twice a day:Use mil d soap and water. Do not scrub the abscess. - Do not squeeze the abscess. The warm compress es will make it more likely to drain spontaneously. - Take prescribed medications as directed:Don't skip doses of your medication. This makes them less effective. Be aware of the common side effects that may be caused by your medication. - Acetaminophen for pain - Nonsteroidal anti-inflammatory medications fo r pain:Ibuprofen (Motrin, Advil, Nuprin, NeoProfen) Naproxen (Anaprox, Naprosyn, Aleve) Notify your doctor if you have a skin abscess a nd any of the following: - Worsening pain around the abscess - Worsening skin redness around the abscess - Red streaks spreading from the abscess:Lympha ngitis of the arm - Fever over 101 degrees F (38.3 C) - Repeated vomiting Patient/Caller agrees with plan. Contact Type of call: [facility]. Caller Response: URGENT-- OTHER Advised to contact Telephone Care for any questions, concerns, new or worsening symptoms; services available 03/02. The patient, CHELI FITCH ([id number]) Phon e: called the call center. Caller Area: *[facility] Class Code: Other specified counseling. PCMM Provider Info: [facility] ([phone]) PACT: MSP *JO-ANN* RYAN (Focus: Womens Health) Designated Pcp: Christy Ribeiro PHONE:[phone] PAGER:[phone] Safety And Skill Based Pay Manager: Mary Fernández PHONE:[phone] Clinical Associate: Wrecker Operator: Sherice Bravo E:[phone] PACT Clinical Pharmacist: Tomas Gomez PHONE:[phone] Clinical POC: Administrative POC: Evaluation/Management Code: HC PRO PHONE CALL 11 -20 MIN ([phone]). Starting at: 03/08/2021 @ 2:08:18 PM Ending at: 03/08/2021 @ 2:24:45 PM Length: 16 minutes. Patient's Email Address: [email or web address]/ NOEL CORREIAN GORDON 23 Daytime decision unit rn Signed: 03/08/2021 14:29 Receipt Acknowledged By: * AWAITING SIGNATURE * CHRISTY RIBEIRO * AWAITING SIGNATURE * MARY FERNÁNDEZ 03/08/2021 ADDENDUM STATUS: COMPLETED [place] [facility] [place] with in 24 hours for evaluation. /prerna/ NOEL WILKERSON RN BSN VISN 23 Daytime decision unit rn Signed: 03/08/2021 14:31
--- OUTSIDE RECORDS SUMMARY | 2022-02-19 13:29 | XMS_ITS | Encounter Summary ---
:1975 Author Organization Department of [facility] rs Address [address] [place] [id number] Care Team Providers Name Role Phone CHRISTY RIBEIRO Primary Care Provider Unavailable Selected Encounter This section includes the information on record at [place] for the Encounter. Date/Time Encounter Type Encounter Description Reason Provider Source Aug 03, 2021 09:06 Outpatient Encounter COMP [facility] AM IHE Encounter Template Text not used by [place] Plan of Treatment: Future Appointments (+ 6 months) and Future Tests (+/- 45 days) The Plan of Treatment section includes future care activities for the patient from all [place] treatmentfacilities. This section includes future appointments and future orders which are active, pending orscheduled.Future Appointments This section includes appointments that were scheduled to occur 6 months from the date of the Encounter, up to a maximum of 20 appointments. The data comes from all [place] treatment facilities. Appointment Date/Time Appointment Type Appointment Facili ty Name Sep 18, 2021 10:45 AM AMBULATORY - NONE [facility] Sep 19, 2021 10:40 AM AMBULATORY - SURGERY Marc Mcclellan [facility] Oct 10, 2021 10:15 AM AMBULATORY - NONE Marc DURBIN [facility] December 03, 2021 05:15 PM AMBULATORY - NONE [facility] Dec 28, 2021 11:00 AM AMBULATORY - MEDICINE [facility] Dec 28, 2021 12:30 PM AMBULATORY - NONE [facility] Jan 03, 2022 06:00 PM AMBULATORY - NONE [facility] Jan 04, 2022 10:15 AM AMBULATORY - NONE [facility] Jan 29, 2022 08:04 AM AMBULATORY - NONE [facility] Jan 29, 2022 09:15 AM AMBULATORY - NONE [facility] Social History: Smoking Status (Most current) and Tobacco Use (All prior to encounter date) This section includes the most current, and the historical, smoking and tobacco-related health factors from the [facility] where the Encounter took place.Current Smoking Status This section includes the most current smoking, or tobacco-related health factor, from the [place] facility where the Encounter took place. Date/Time Current Smoking Status Comment Facility Jan 24, 2021 10:00 AM VA-TOBACCO USER EVERY DAY [facility] Tobacco Use History This section includes a history of the smoking, or tobacco- related health factors, that were collected on or before the date of the Encounter. The data comes from the [place] facility where the Encounter took place. 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 [facility] Jan 24, 2021 10:00 AM VA-TOBACCO USE MED NO [facility] Jan 24, 2021 10:00 AM VA-TOBACCO USE WI 30 MIN OF WAKEUP [facility] Jan 24, 2021 10:00 AM VA-TOBACCO USER EVERY DAY [facility] Aug 25, 2019 12:31 PM VA-TOBACCO FORMER USER [facility] Aug 25, 2019 12:31 PM VA-TOBACCO QUIT < 1 YEAR [facility] November 11, 2017 08:04 AM CURRENT TOBACCO USER [facility] May 16, 2015 12:39 PM CURRENT TOBACCO USER [facility] Sep 16, 2013 11:37 AM CURRENT TOBACCO USER [facility] Mar 18, 2012 07:44 AM CURRENT TOBACCO USER [facility] Sep 17, 2010 09:11 AM CURRENT TOBACCO USER [facility] Mar 22, 2009 08:43 AM CURRENT TOBACCO USER [facility] Mar 28, 2008 11:14 AM CURRENT TOBACCO USER [facility] May 04, 2007 11:39 AM CURRENT TOBACCO USER [facility] May 04, 2007 11:34 AM CURRENT TOBACCO USER [facility] Aug 07, 2006 09:27 AM CURRENT TOBACCO USER [facility] Advance Directives: All historical and current Section Date Range: From patient's date of to the date document was created. This section includes ALL of a patient's completed or amended [place] Advance and Rescinded Directives. The entries below indicate that a directive exists for the patient, but an actual copy is not included with this document. The data comes from all [place] facilities. Date Advance Directives Provider Source Apr 22, 2003 ADVANCE DIRECTIVE LUZ ASHBY [facility] Encounter Notes: All associated encounter notes This section contains the clinical notes associated to the Encounter. Date/Time Encounter Note(s) Provider Source Aug 03, 2021 09:06 AM [facility]: APPOINTMENT SCHEDULING NOTE STANDARD TITLE: REPORT OF CONTACT DATE OF NOTE: AUG 03, 2021@09:06 ENTRY DATE: AUG 03, 2021@09:06:47 AUTHOR: ERIC MOYA EXP COSIGNER: URGENCY: STATUS: COMPLETED Recall (PtCSch) contact efforts Contact: Automated letter sent to Veterans addr ess on file on: Jul Contact: Called [place] at phone: Jul wants to call back to schedule. If calls back, schedule appointment for : [id number] [address] FOLLOW UP NO LABS Provider: please review veterans chart and medi cations for renewal needs (if appropriate). The recall request has been deleted. /prerna/ RENALDO MOYA ADVANCED PRIMER BOXER Signed: 08/03/2021 09:09 Receipt Acknowledged By: 08/03/2021 09:17 /prerna/ CHRISTY RIBEIRO M.D. STAFF PHYSICIAN
--- OUTSIDE RECORDS SUMMARY | 2022-02-19 13:29 | XMS_ITS | Encounter Summary ---
:1975 Author Organization [facility] rs Address [address] [place] [address] Care Team Providers Name Role Phone CHRISTY RIBEIRO Primary Care Provider Unavailable Selected Encounter This section includes the information on record at ID for the Encounter. Date/Time Encounter Type Encounter Description Reason Provider Source Dec 12, 2021 09:25 Outpatient Encounter TELEPHONE TRIAGE AM IHE Encounter Template Text not used [...] Date/Time Appointment Type Appointment Facili ty Name Dec 28, 2021 11:00 AM AMBULATORY - MEDICINE [facility] H CS Dec 28, 2021 12:30 PM AMBULATORY - NONE [facility] Jan 03, 2022 06:00 PM AMBULATORY - NONE [facility] Jan 04, 2022 10:15 AM AMBULATORY - NONE [facility] Jan 29, 2022 08:04 AM AMBULATORY - NONE [facility] Jan 29, 2022 09:15 AM AMBULATORY - NONE [facility] Lab Results: +/- 30 days of the encounter This section includes the Chemistry and Hematology Lab Results on record with ID for the patient. Radiology Reports and Pathology Reports are provided separately, in subsequent sections.Lab Results This section contains the Chemistry/Hematology Results that were resulted 30 days before or 30 daysafter the date of the Encounter. Date/Time Source Result Type Result - Unit Interpretation Reference Range Comment Dec 28, 2021 [facility] LIPID PANEL,NON-FASTING Spec imen Type: PLASMA 12:50 PM Comment: Elevat ed triglyceride result from a non-fasting specimen should be interpreted with caution. A fasting panel is recommended for accurate triglycerides when trigs are >200 from a non-fasting specimen. Ordering Provid er: CHRISTY RIBEIRO Report Released Date/Time: Dec 28, 2021 11:57 AM Reporting Lab: [facility] [address] [facility] [address] Performing Lab: [facility] [address] [facility] [address] CHOLESTEROL 266 mg/dL H <199 .HDL 73 mg/dL >50 LDL CALCULATION 149 mg/dL H <99 VLDL CALCULATION 44 mg/dL H <29 NON HDL CHOLESTEROL 193 mg/dL H <129 TRIG(NON FASTING) 219 mg/dL H <149 Dec 28, 2021 12:50 PM [facility] HEMOGLOBIN A1C Specim en Type: BLOOD No comment enter ed. Ordering Provid er: CHRISTY RIBEIRO Report Released Date/Time: Dec 28, 2021 11:57 AM Reporting Lab: [facility] [address] [facility] [address] Performing Lab: [facility] [address] [facility] [address] HEMOGLOBIN A1C 5.4 4.0-6.0 Dec 28, 2021 12:50 PM [facility] FSH Specim en Type: PLASMA Comment: Elevat ed triglyceride result from a non-fasting specimen should be interpreted with caution. A fasting panel is recommended for accurate triglycerides when trigs are >200 from a non-fasting specimen. Ordering Provid er: CHRISTY RIBEIRO Report Released Date/Time: Dec 28, 2021 11:57 AM Reporting Lab: [facility] [address] [facility] [address] Performing Lab: [facility] [address] [facility] [address] FSH 39.22 m[IU]/mL Dec 28, 2021 12:50 [facility] TSH W/REFLEX TO FREE Spec imen Type: PLASMA PM T4 Comment: Elevat ed triglyceride result from a non-fasting specimen should be interpreted with caution. A fasting panel is recommended for accurate triglycerides when trigs are >200 from a non-fasting specimen. Ordering Provid er: CHRISTY RIBEIRO Report Released Date/Time: Dec 28, 2021 11:57 AM Reporting Lab: [facility] [address] [facility] [address] Performing Lab: [facility] [address] [facility] [address] TSH 1.49 u[IU]/mL 0.35-4.94 Social History: Smoking [...] 2021 10:00 AM VA-TOBACCO USER EVERY DAY [facility] Tobacco Use History This section includes a history of the smoking, or tobacco- related health factors, that were collected on or before the date of the Encounter. The data comes from the ID facility where the Encounter took place. 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 [facility] Jan 24, 2021 10:00 AM VA-TOBACCO USE MED NO [facility] Jan 24, 2021 10:00 AM VA-TOBACCO USE WI 30 MIN OF WAKEUP [facility] Jan 24, 2021 10:00 AM VA-TOBACCO USER EVERY DAY [facility] Aug 25, 2019 12:31 PM VA-TOBACCO FORMER USER MIN [facility] Aug 25, 2019 12:31 PM VA-TOBACCO QUIT < [facility] November 11, 2017 08:04 AM CURRENT TOBACCO USER [facility] May 16, 2015 12:39 PM CURRENT TOBACCO USER [facility] Sep 16, 2013 11:37 AM CURRENT TOBACCO USER [facility] Mar 18, 2012 07:44 AM CURRENT TOBACCO USER [facility] Sep 17, 2010 09:11 AM CURRENT TOBACCO USER [facility] Mar 22, 2009 08:43 AM CURRENT TOBACCO USER ANDREY [facility] Mar 28, 2008 11:14 AM CURRENT TOBACCO USER [facility] May 04, 2007 11:39 AM CURRENT TOBACCO USER [facility] May 04, 2007 11:34 AM CURRENT TOBACCO USER [facility] Aug 07, 2006 09:27 AM CURRENT TOBACCO USER [facility] Advance Directives: All historical and current [...] Apr 22, 2003 ADVANCE DIRECTIVE LUZ ASHBY [facility] Pathology Reports: +/- 30 days [...] comes from all ID treatment facilities. Date/Time Pathology Report Provider Source Dec 28, 2021 12:44 PM LR MICROBIOLOGY REPORT: [facility] Reporting Lab: [facility] [[id number]# [id number]] [place] [address] Accession [UID]: [id number] [[id number]] Receive d: Dec 28, 2021@12:44 Collection sample: CLIPPINGS Collection date: 2021 12:44 Site/Specimen: NAIL Provider: CHRISTY RIBEIRO Comment on specimen: RECEIVED IN STERILE CUP Test(s) ordered: HUANG FUNGAL PREP....... ........ completed: Jan 01, 2022 10:17 MYCOLOGY CULTURE.............. completed: Jan 112021 * MYCOLOGY FINAL REPORT => Jan 25, 2022 10:09 TE CODE: [id number] MYCOLOGY SMEAR/PREP: HUANG PREP: 1+ SEPTATE HYPHAE, 3-4 MICRONS WIDE CULTURE PENDING Fungus/Yeast: NO DERMATOPHYTES ISOLATED Mycology Remark(s): THIS REPORT IS FINAL =--=--=--=--=--=--=--=--=--=--=--=--=--= --=--=--=--=--=--=--=--=--=--=--=--=-- Performing Laboratory: Mycology Report Performed By: [facility] [CLIA# [id number]] [place] [address] Encounter Notes: All associated encounter notes This section contains the clinical notes associated to the Encounter. Date/Time Encounter Note(s) Provider Source Dec 12, 2021 09:25 AM [facility] LOC[facility] TITLE: PATIENT CONTACT NOTE STANDARD TITLE: REPORT OF CONTACT DATE OF NOTE: DEC 12, 2021@09:25 ENTRY DATE: DEC 12, 2021@09:25:53 AUTHOR: JANEEN RAI EXP COSIGNER: URGENCY: STATUS: COMPLETED PATIENT CONTACT NOTE Has ADDENDA Primary Care Call Center Phone number verified as correct. [phone] [place] both ears still have drainage. [place] would like a ear cleaning during her physical that is schedule on 12-28-2021, if possible. stated that her PACT know of this issue. stated that ear has not got better. deny new or worsening symptom and sympmt oms are the same. [place] request to be contact to discuss further. /prerna/ JANEEN RAI VSN 23 [facility] Signed: 12/12/2021 09:30 Receipt Acknowledged By: 12/12/2021 09:58 /prerna/ AKIL DELCID, RN, BSN Gynecology Shop Technician for MARY Grubbs SANTOSH 12/12/2021 ADDENDUM STATUS: COMPLETED Pt. was called and she is wa nting to have her ears checked at her upcoming appt. on 12/28/21, this lead technical writer offered pt. to use the [place] for urgent care in the community if she could possibly be s een sooner as her ears are hurting and PCP did not have any availability sooner than th e 12/28/21 appt. Pt. is unsure if she can use the [place] Act again as she believes it is only an option once per year. This w evanser is unsure how many times per year the [place] Act can be used, direct phon e number to [place] provided to to call. As stated pt. used the [place] Act while visiting [place] for bilateral ear pain and received HC1%/Neomycin 3.5mg/Polymycin Otic drops and is wondering if PCP would prescribe? This lead technical writer stated that I would address with PCP and it would be at the MD's discretion if possible pr ior to exam, if so she would like them mailed as she lives in [place], [place]. Ear exam added to upcoming annual appt on 2. /prerna/ AKIL DELCID RN, BSN Gynecology Shop Technician Signed: 12/12/2021 10:12 Receipt Acknowledged By: 12/13/2021 12:54 /prerna/ CHRISTY RIBEIRO M.D. STAFF PHYSICIAN 12/13/2021 ADDENDUM STATUS: COMPLETED Pls call pt. She is group 1 priority. should not be a limit on urgent care use. [place] can use their new urgent care benef it to get this checked out. [place] can go to a local urgent care by checking the website [email or web address] or call 3 [phone] ( ) They can to the website and can plug in the zip code and search within different miles radius within their area to loca te the nearest urgent care. They should check with the [facility] at the number abov e about their eligibility Can you pls let her know? We do not typi rachel refill drops for ear infections. She should be examined again. /prerna/ CHRISTY RIBEIRO M.D. STAFF PHYSICIAN Signed: 12/13/2021 12:56 Receipt Acknowledged By: 12/13/2021 13:18 /prerna/ JORDANA WILEY RN REGISTERED NURSE for MARY FROST 12/13/2021 ADDENDUM STATUS: COMPLETED Left voicemail about using urgent care via the V A algebra tutor. Also, left my maternity care coordination phone number so that Mariana can talk to me more about this. /prerna/ JORDANA WILEY RN REGISTERED NURSE Signed: 12/13/2021 13:20
--- OUTSIDE RECORDS SUMMARY | 2022-02-19 13:29 | XMS_ITS | Encounter Summary ---
:1975 Author Organization Department of [facility] rs Address [address] [place] [address] Care Team Providers Name Role Phone CHRISTY RIBEIRO Primary Care Provider Unavailable Selected Encounter This section includes the information on record at MD for the Encounter. Date/Time Encounter Type Encounter Reason Provider Source Description Dec 28, 2021 [facility] ICD-10-CM H60.549 LEO DEL CASTILLO 12:12 PM ASSMT&MGMT 5-10 Acute eczematoid E K otitis externa, unspecified ear with Provider Comments: Acute Eczematoid Otitis Externa, unspecified Ear IHE Encounter Template Text not used by MD Assessments - Encounter Diagnoses This section includes the primary and secondary diagnoses documented for the Encounter. Date/Time Primary/Secondary Diagnosis Name Provider Source Diagnosis Dec 28, 2021 PRIMARY Acute eczematoid [facility]ZETLEO [facility]IZ [facility] 12:15 PM otitis externa, E K HCS unspecified ear Plan of Treatment: Future Appointments (+ 6 [...] 03, 2022 06:00 PM AMBULATORY - NONE [facility] Jan 04, 2022 10:15 AM AMBULATORY - NONE [facility] Jan 29, 2022 08:04 AM AMBULATORY - NONE [facility] Jan 29, 2022 09:15 AM AMBULATORY - NONE [facility] Lab Results: +/- 30 days of the encounter This section includes the Chemistry and Hematology Lab Results on record with MD for the patient. Radiology Reports and Pathology Reports are provided separately, in subsequent sections.Lab Results This section contains the Chemistry/Hematology Results that were resulted 30 days before or 30 daysafter the date of the Encounter. Date/Time Source Result Type Result - Unit Interpretation Reference Range Comment Dec 28, 2021 [facility] LIPID PANEL,NON-FASTING Spec imen Type: PLASMA 12:50 PM Comment: Elevat ed triglyceride result from a non-fasting specimen should be interpreted with caution. A fasting panel is recommended for accurate triglycerides when trigs are >200 from a non-fasting specimen. Ordering Provid er: CHRISTY RIBEIRO Report Released Date/Time: Dec 28, 2021 11:57 AM Reporting Lab: [facility] [address] [facility] [address] Performing Lab: [facility] [address] [facility] [address] CHOLESTEROL 266 mg/dL H <199 .HDL 73 mg/dL >50 LDL CALCULATION 149 mg/dL H <99 VLDL CALCULATION 44 mg/dL H <29 NON HDL CHOLESTEROL 193 mg/dL H <129 TRIG(NON FASTING) 219 mg/dL H <149 Dec 28, 2021 12:50 PM [facility] HEMOGLOBIN A1C Specim en Type: BLOOD No comment enter ed. Ordering Provid er: CHRISTY RIBEIRO Report Released Date/Time: Dec 28, 2021 11:57 AM Reporting Lab: [facility] [address] [facility] [address] Performing Lab: [facility] [address] [facility] [address] HEMOGLOBIN A1C 5.4 4.0-6.0 Dec 28, 2021 12:50 PM [facility] FSH Specim en Type: PLASMA Comment: Elevat ed triglyceride result from a non-fasting specimen should be interpreted with caution. A fasting panel is recommended for accurate triglycerides when trigs are >200 from a non-fasting specimen. Ordering Provid er: CHRISTY RIBEIRO Report Released Date/Time: Dec 28, 2021 11:57 AM Reporting Lab: [facility] [address] [facility] [address] Performing Lab: [facility] [address] [facility] [address] FSH 39.22 m[IU]/mL Dec 28, 2021 12:50 [facility] TSH W/REFLEX TO FREE Spec imen Type: PLASMA PM T4 Comment: Elevat ed triglyceride result from a non-fasting specimen should be interpreted with caution. A fasting panel is recommended for accurate triglycerides when trigs are >200 from a non-fasting specimen. Ordering Provid er: CHRISTY RIBEIRO Report Released Date/Time: Dec 28, 2021 11:57 AM Reporting Lab: [facility] [address] [facility] [address] Performing Lab: [facility] [address] TSH 1.49 u[IU]/mL 0.35-4.94 Vital Signs: All taken on the encounter date This section contains inpatient and outpatient Vital Signs collected on the date of the Encounter. Date/Time Temperature Pulse Blood Respiratory SP02 Pain Height Weight Ricardo dy Source Pressure Rate Mass Index Dec 28 111/77 18 /min 97 % 4 65.5 in 138.3 23 [place] 2021 11:34 /min mm[Hg] lb OLIS [facility] Social History: Smoking Status (Most current) and Tobacco Use (All prior to encounter date) This section includes the most current, and the historical, smoking and tobacco-related health factors from the MD facility where the Encounter took place.Current Smoking Status This section includes the most current smoking, or tobacco-related health factor, from the MD facility where the Encounter took place. Date/Time Current Smoking Status Comment Facility Dec 28, 2021 11:00 AM VA-TOBACCO USER EVERY DAY [facility] Tobacco Use History This section includes a history of the smoking, or tobacco- related health factors, that were collected on or before the date of the Encounter. The data comes from the MD facility where the Encounter took place. 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 [facility] Dec 28, 2021 11:00 AM VA-TOBACCO USE MED YES MIN [facility] Dec 28, 2021 11:00 AM VA-TOBACCO USE WI 30 MIN OF WAKEUP [facility] Dec 28, 2021 11:00 AM VA-TOBACCO USER EVERY DAY [facility] Jan 24, 2021 10:00 AM VA-TOBACCO USE > 15 LESS THAN 30 [facility] YEARS Jan 24, 2021 10:00 AM VA-TOBACCO USE ADVICE HERMINIADoug SALVADOR [facility] Jan 24, 2021 10:00 AM VA-TOBACCO USE 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 Date/Time Pathology Report Provider Source Dec 28, 2021 12:44 PM LR MICROBIOLOGY REPORT: ALMA BORJA [facility] Reporting Lab: [facility] [CLIA# [id number]] [place] [address] Accession [UID]: [id number] [[id number]] Receive d: Dec 28, 2021@12:44 Collection sample: CLIPPINGS Collection date: 2021 12:44 Site/Specimen: NAIL Provider: CHRISTY RIBEIRO Comment on specimen: RECEIVED IN STERILE CUP Test(s) ordered: HUANG FUNGAL PREP....... ........ completed: Jan 01, 2022 10:17 MYCOLOGY CULTURE.............. completed: Jan 112021 * MYCOLOGY FINAL REPORT => Jan 25, 2022 10:09 TE CODE: [id number] MYCOLOGY SMEAR/PREP: HUANG PREP: 1+ SEPTATE HYPHAE, 3-4 MICRONS WIDE CULTURE PENDING Fungus/Yeast: NO DERMATOPHYTES ISOLATED Mycology Remark(s): THIS REPORT IS FINAL =--=--=--=--=--=--=--=--=--=--=--=--=--= --=--=--=--=--=--=--=--=--=--=--=--=-- Performing Laboratory: Mycology Report Performed By: [facility] [CLIA# [id number]] [place] [address] Encounter Notes: All associated encounter notes This section contains the clinical notes associated to the Encounter. Date/Time Encounter Note(s) Provider Source Dec 28, 2021 12:12 PM PHARMACY CONSULT: NORMA HINDS [facility] LOCAL TITLE: PHARMACY PRIOR AUTHORIZATION APPRO LISA CONSULT STANDARD TITLE: PHARMACY CONSULT DATE OF NOTE: DEC 28, 2021@12:12 ENTRY DATE: DEC 28, 2021@12:12:21 AUTHOR: NORMA HINDS EXP COSIGNER: URGENCY: STATUS: COMPLETED The medical record has been reviewed with regard to this prior authorization drug request. Medication requested: FLUOCINOLONE ACETONIDE 0. 01% OTIC OIL Medication indication: ECZEMA Medical history relevant to this request: Indication: bilateral chronic eczema of ear nilson l Previous Therapies: none The request is approved - No formulary-preferred alternative Active Outpatient Medications (including Supplie s): ALBUTEROL 90MCG (CFC-F) 200D ORAL INHL INHALE 2 PUFFS BY ACTIVE MOUTH FOUR TIMES A DAY FOR BREATHING *SHAKE WEL L* (FOR IMMEDIATE RELIEF) ALBUTEROL 90MCG (CFC-F) 200D ORAL INHL INHALE 2 PUFFS BY PENDING MOUTH FOUR TIMES A DAY FOR BREATHING *SHAKE WEL L* (FOR IMMEDIATE RELIEF) CIPROFLOXACIN 0.3/DEXAM 0.1% OTIC SUSP INSTILL 4 DROPS IN PENDING EAR(S) TWICE A DAY CITALOPRAM HYDROBROMIDE 20MG TAB TAKE ONE-HALF T ABLET BY PENDING MOUTH EVERY DAY FOR 7 DAYS, THEN TAKE ONE TABLE T EVERY DAY FLUOCINOLONE ACETONIDE 0.01% OTIC OIL INSTILL 5 DROPS INTO PENDING BOTH EARS WEEKLY FLUTICASONE PROP 50MCG 120D NASAL INHL SPRAY 1 S PRAY IN PENDING EACH NOSTRIL EVERY DAY FOR ALLERGIES IBUPROFEN 800MG TAB TAKE ONE TABLET BY MOUTH THR EE TIMES A ACTIVE DAY NEEDED FOR PAIN -TAKE WITH FOOD IBUPROFEN 800MG TAB TAKE ONE TABLET BY MOUTH THR EE TIMES A PENDING DAY NEEDED FOR PAIN -TAKE WITH FOOD POLYETHYLENE GLYCOL 3350 ORAL PWDR TAKE 17 GRAMS BY MOUTH ACTIVE EVERY DAY *MIX IN 4 TO 8 OUNCES OF LIQUID DIRECTED*USE COVER TO MEASURE POWDER* Non-VA PSEUDOEPHEDRINE TAB 30MG MOUTH TWICE A DA Y ACTIVE NEEDED Non-VA VITAMIN E CAP,ORAL 1 TABLET MOUTH EVERY D AY ACTIVE NEEDED /prerna/ NORMA HINDS Pharm.D. Signed: 12/28/2021 12:15
--- OUTSIDE RECORDS SUMMARY | 2022-02-19 13:29 | XMS_ITS | Encounter Summary ---
:1975 Author Organization Department of [facility] rs Address [address] [place] [address] Care Team Providers Name Role Phone CHRISTY RIBEIRO Primary Care Provider Unavailable Selected Encounter This section includes the information on record at ID for the Encounter. Date/Time Encounter Type Encounter Description Reason Provider Source Nov 06, 2021 10:15 Outpatient Encounter COMP [facility] AM IHE Encounter Template Text not used [...] Date/Time Appointment Type Appointment Facili ty Name December 03, 2021 05:15 PM AMBULATORY - NONE [facility] Dec 28, 2021 11:00 AM AMBULATORY - MEDICINE [facility] CS Dec 28, 2021 12:30 PM AMBULATORY - NONE [facility] Jan 03, 2022 06:00 PM AMBULATORY - NONE [facility] Jan 04, 2022 10:15 AM AMBULATORY - NONE [facility] Jan 29, 2022 08:04 AM AMBULATORY - NONE [facility] Jan 29, 2022 09:15 AM AMBULATORY - NONE [facility] Social History: Smoking Status (Most current) and Tobacco Use (All prior to encounter date) This section includes the most current, and the historical, smoking and tobacco-related health factors from the ID facility where the Encounter took place.Current Smoking Status This section includes the most current smoking, or tobacco-related health factor, from the [facility] where the Encounter took place. Date/Time Current Smoking Status Comment Facility Jan 24, 2021 10:00 AM VA-TOBACCO USER EVERY DAY [facility] Tobacco Use History This section includes a history of the smoking, or tobacco- related health factors, that were collected on or before the date of the Encounter. The data comes from the ID facility where the Encounter took place. 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 [facility] Jan 24, 2021 10:00 AM VA-TOBACCO USE MED NO [facility] Jan 24, 2021 10:00 AM VA-TOBACCO USE WI 30 MIN OF WAKEUP [facility] Jan 24, 2021 10:00 AM VA-TOBACCO USER EVERY DAY [facility] Aug 25, 2019 12:31 PM VA-TOBACCO FORMER USER MIN [facility] Aug 25, 2019 12:31 PM VA-TOBACCO QUIT < 1 YEAR M [facility] November 11, 2017 08:04 AM CURRENT TOBACCO USER [facility] May 16, 2015 12:39 PM CURRENT TOBACCO USER [facility] Sep 16, 2013 11:37 AM CURRENT TOBACCO USER [facility] Mar 18, 2012 07:44 AM CURRENT TOBACCO USER [facility] Sep 17, 2010 09:11 AM CURRENT TOBACCO USER [facility] Mar 22, 2009 08:43 AM CURRENT TOBACCO USER [facility] Mar 28, 2008 11:14 AM CURRENT TOBACCO USER [facility] May 04, 2007 11:39 AM CURRENT TOBACCO USER [facility] May 04, 2007 11:34 AM CURRENT TOBACCO USER [facility] Aug 07, 2006 09:27 AM CURRENT TOBACCO USER [facility] Advance Directives: All historical and [...] Apr 22, 2003 ADVANCE DIRECTIVE LUZ ASHBY [facility] Encounter Notes: All associated encounter notes This section contains the clinical notes associated to the Encounter. Date/Time Encounter Note(s) Provider Source Nov 07, 2021 11:51 AM REPORT OF CONTACT: ERIC MOYA [facility] LOCAL TITLE: APPOINTMENT SCHEDULING NOTE STANDARD TITLE: REPORT OF CONTACT DATE OF NOTE: NOV 07, 2021@11:51 ENTRY DATE: NOV 07, 2021@11:51:37 AUTHOR: ERIC MOYA EXP COSIGNER: URGENCY: STATUS: COMPLETED Cancellation: not seen for scheduled appointment due to: cancelled. Contact: Called at: Oct Called patient in attempt to reschedule 11/07/19 22 appointment. Left message on voice mail. Phone number left for to call back: [phone] If Driscoll calls back, schedule appointment for : [id number] [address] 6M FOLLOW UP NO LABS /es/ RENALDO MOYA ADVANCED JUNIOR ORACLE DBA Signed: 11/07/2021 11:53
--- OUTSIDE RECORDS SUMMARY | 2022-02-19 13:29 | XMS_ITS | Encounter Summary ---
:1975 Author Organization Department of [facility] rs Address [address] [place] [address] Care Team Providers Name Role Phone CHRISTY RIBEIRO Primary Care Provider Unavailable Selected Encounter This section includes the information on record at [place] for the Encounter. Date/Time Encounter Type Encounter Description Reason Provider Source May 01, 2021 08:52 Outpatient Encounter TELEPHONE/ANCILLARY AM IHE Encounter Template Text not used by [place] Plan of Treatment: Future Appointments (+ 6 months) and Future Tests (+/- 45 days) The Plan of Treatment section includes future care activities for the patient from all [place] treatmentfacilities. This section includes future appointments and future orders which are active, pending orscheduled.Future Appointments This section includes appointments that were scheduled to occur 6 months from the date of the Encounter, up to a maximum of 20 appointments. The data comes from all [place] treatment facilities. Appointment Date/Time Appointment Type Appointment Facili ty Name May 25, 2021 09:30 AM AMBULATORY - NONE [facility] Sep 18, 2021 10:45 AM AMBULATORY - NONE [facility] Sep 19, 2021 10:40 AM AMBULATORY - SURGERY Marc Mcclellan EPT OF [facility] Oct 10, 2021 10:15 AM AMBULATORY - NONE Marc DURBIN PT OF [facility] Active, Pending, and Scheduled Orders This section includes a listing of several types of active, pending, and scheduled orders, including clinic medications orders, diagnostic test orders, procedure orders and consult orders; where the start date of the order is 45 days before the date of the Encounter or 45 days after the date of the Encounter. The data comes from all [place] treatment facilities. Test Date/Time Test Type Test Details Facility Name May 03, 2021 12:00 AM Laboratory - Chemistry CBC BLOOD SP ONCE M [facility] Order May 03, 2021 12:00 AM Laboratory - Chemistry BASIC METABOLIC MIN [facility] Order PANEL+MG PLASMA SP Social History: Smoking Status (Most current) and Tobacco Use (All prior to encounter date) This section includes the most current, and the historical, smoking and tobacco-related health factors from the [place] facility where the Encounter took place.Current Smoking Status This section includes the most current smoking, or tobacco-related health factor, from the [facility] where the Encounter took place. Date/Time Current Smoking Status Comment Facility Jan 24, 2021 10:00 AM VA-TOBACCO USER EVERY DAY [facility] Tobacco Use History This section includes a history of the smoking, or tobacco- related health factors, that were collected on or before the date of the Encounter. The data comes from the [facility] where the Encounter took place. Date/Time Smoking Status/Tobacco Use Comment [facility] Jan 24, 2021 10:00 AM VA-TOBACCO USE ADVICE [facility] Jan 24, 2021 10:00 AM VA-TOBACCO USE DRY CLIPPER TENDER NO [facility] Jan 24, 2021 10:00 AM VA-TOBACCO USE MED NO [facility] Jan 24, 2021 10:00 AM VA-TOBACCO USE WI 30 MIN OF WAKEUP [facility] Jan 24, 2021 10:00 AM VA-TOBACCO USER EVERY DAY [facility] Aug 25, 2019 12:31 PM VA-TOBACCO FORMER USER MIN [facility] Aug 25, 2019 12:31 PM VA-TOBACCO QUIT < 1 YEAR [facility] November 11, 2017 08:04 AM CURRENT TOBACCO USER [facility] May 16, 2015 12:39 PM CURRENT TOBACCO USER [facility] Sep 16, 2013 11:37 AM CURRENT TOBACCO USER [facility] Mar 18, 2012 07:44 AM CURRENT TOBACCO USER [facility] Sep 17, 2010 09:11 AM CURRENT TOBACCO USER [facility] Mar 22, 2009 08:43 AM CURRENT TOBACCO USER [facility] Mar 28, 2008 11:14 AM CURRENT TOBACCO USER [facility] May 04, 2007 11:39 AM CURRENT TOBACCO USER [facility] May 04, 2007 11:34 AM CURRENT TOBACCO USER [facility] Aug 07, 2006 09:27 AM CURRENT TOBACCO USER [facility] Advance Directives: All historical and current Section Date Range: From patient's date of to the date document was created. This section includes ALL of a patient's completed or amended [place] Advance and Rescinded Directives. The entries below indicate that a directive exists for the patient, but an actual copy is not included with this document. The data comes from all [place] facilities. Date Advance Directives Provider Source Apr 22, 2003 ADVANCE DIRECTIVE LUZ ASHBY [facility] Encounter Notes: All associated encounter notes This section contains the clinical notes associated to the Encounter. Date/Time Encounter Note(s) Provider Source May 01, 2021 08:52 AM REPORT OF CONTACT: CARMEL DE LA CRUZ [facility] LOCAL TITLE: PATIENT CONTACT NOTE STANDARD TITLE: REPORT OF CONTACT DATE OF NOTE: MAY 01, 2021@08:52 ENTRY DATE: MAY 01, 2021@08:52:19 AUTHOR: CARMEL DE LA CRUZ EXP COSIGNER: URGENCY: STATUS: COMPLETED PATIENT CONTACT NOTE Has ADDENDA Patient contact Name of [place]: CHELI FITCH Name/Relationship of Contact if other than Veter an: Date & Time of Contact: Apr@08:52 Type of Contact: Telephone Reason for Contact: Patient was scheduled in [facility] call clinic in [facility] yesterday and call was cancelled but patient needing asistance. PACT RN is out of office today so I returned patient call after being notified of marisela kerr concern and questions. Patient stated that she was told she would get a call and she is asking to have a Hysterectomy for her abnor mal bleeding and fibroids. Patient was last seen by Gynecology over a year ago and she was started o n Depo Provera injections for balance of PMS, AUB and Cont raceptive coverage. She is no longer wanting to stay with this plan and now seeks to move for [place] with wanting to revisit the ideal of a Hysterectomy. She was originally to have a f/u communi cation call with her PACT team but did not receive that information. At this time, she has not continued with her Depo Provera and did not complete her last injection that was due on March. She stated that she wants to have a Hysterectomy close to [place] and then be gone for 3 months to [place] and can recover down there. Unfortunatel y I have told her that it is impossible to get on the MAG[facility] RESONANCE IMAGING DIRECTOR surgery schedule before the start of the year. She is accepting of this information and we did talk further about her additional symptoms and concerns. Patient states that she is w orried about her PMS symptoms (cramping/pelvic pain and bloating)coming back and that the affect of the Depo Provera for so many years of use (by history) will have thinned her bones. She is wanting to move foreward with the ideal of getting back to see Vy Cornell and have a plan for surgery in the spring when she returns if possib le. She is wondering about getting and FSH to see jenae woodson close is she really to menopause. She is aware that her last formal pelvic U/S was done on 09/15/2019 and would likely need to be repeated to check on her endo thickness and fibroids. She is also now realizing that she should get ba ck on the Depo Provera if she will not be having any surgery until spring and is fearful of her bleeding returning. Patient lives in [place] and will need to tra malcolm to [place] to restart the Depo Provera, have lab work, and likely need orders f or scheduling of a formal U/S before consult can be placed to see MAGNETIC RESONANCE IMAGING DIRECTOR. She is asking for all of this to be coordinated so it can be completed on Oc or for the priliminary work up needs. I will send this to the PACT team to review and determine appropriateness of this information and to assist her in completing her requirements. Patient is available for call back on [employer] phone for the next 3 days. That number is . Patient is awaiting frankie viveros back. 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 She will be away from 05/03-05/09 driving her car down to [place]. She will be flying back to [place] mid day on 05/09. Attempting to facilitate her completion of any orders from her PA CT team in the date window identified. /es/ CARMEL DE LA CRUZ LPN Gynecology Costume Director Signed: 05/01/2021 09:24 05/01/2021 ADDENDUM STATUS: COMPLETED forwarding to Lauren Nieto RN /prerna/ PETER ARAGON RN REGISTERED NURSE Signed: 05/01/2021 15:54 Receipt Acknowledged By: 05/01/2021 16:52 /prerna/ LAUREN NIETO RN STAFF NURSE 05/01/2021 ADDENDUM STATUS: COMPLETED Spoke with patient informed her that pcp will or jayson appropriate labs,depo and ultra-sound. It should not b e a problem to coordinate these appointments. Then a grinding wheel operator apt can be made after consult is wri tten. If surgery is indicated for 2021 the grinding wheel operator apt may be later brianna n 05/10/21 or 05/11/21. Will forward to pcp and pact RN to monitor when patient can come in for first 3 items. /es/ LAUREN NIETO RN STAFF NURSE Signed: 05/01/2021 16:19 Receipt Acknowledged By: 05/02/2021 19:44 /es/ CHARISSA HERNANDEZ MD, MPH PHYSICIAN for CHRISTY GEMA 05/04/2021 09:36 /prerna/ ILIA FROST,RN REGISTERED NURSE 05/02/2021 ADDENDUM STATUS: COMPLETED I ordered labs, US, and injection. /prerna/ CHAIRSSA HERNANDEZ MD, MPH PHYSICIAN Signed: 05/02/2021 19:43 Receipt Acknowledged By: 05/03/2021 13:50 /prerna/ ILIA FROST RN REGISTERED NURSE for LAUREN NIETO 05/03/2021 08:13 /prerna/ CARMEL DE LA CRUZ LPN Gynecology Costume Director 05/03/2021 ADDENDUM STATUS: COMPLETED commercial loan underwriter lm x1, with my direct number and the direct number to schedule her pelvic US US attempted to call her x1 today per Dr. Hernandez labs are ordered and patient needs lab appt /prerna/ ILIA FROST RN REGISTERED NURSE Signed: 05/03/2021 13:49 05/04/2021 ADDENDUM STATUS: COMPLETED Inspectors And Regulatory Officers LM x2 reminding patient she needs labs ap pt and pelvic US scheduled request she contact the call center to schedule lab appt and contact US directly to schedule /prerna/ ILIA FROST RN REGISTERED NURSE Signed: 05/04/2021 09:39
--- OUTSIDE RECORDS SUMMARY | 2022-02-19 13:29 | XMS_ITS | Encounter Summary ---
:1975 Author Organization Department of [facility] rs Address [address] [place] [address] Care Team Providers Name Role Phone CHRISTY RIBEIRO Primary Care Provider Unavailable Selected Encounter This section includes the information on record at [place] for the Encounter. Date/Time Encounter Type Encounter Reason Provider Source Description Sep 05, 2021 HC PRO PHONE TELEPHONE TRIAGE ICD-10-CM Z71.89 [place]IS ARVIZU 11:49 PM CALL 5-10 MIN Other specified J counseling with Provider Comments: Other specified counseling IHE Encounter Template Text not used by [place] Assessments - Encounter Diagnoses This section includes the primary and secondary diagnoses documented for the Encounter. Date/Time Primary/Secondary Diagnosis Name Provider Source Diagnosis Sep 05, 2021 PRIMARY Other specified JUDY ARVIZU [facility] 11:49 PM counseling J [facility] Plan of Treatment: Future Appointments (+ 6 months) and Future Tests (+/- 45 days) The Plan of Treatment section includes future care activities for the patient from all [place] treatmentfacilities. This section includes future appointments and future orders which are active, pending orscheduled.Future Appointments This section includes appointments that were scheduled to occur 6 months from the date of the Encounter, up to a maximum of 20 appointments. The data comes from all [place] treatment facilities. Appointment Date/Time Appointment Type Appointment Facili ty Name Sep 18, 2021 10:45 AM AMBULATORY - NONE [facility] Sep 19, 2021 10:40 AM AMBULATORY - SURGERY Marc Mcclellan EPT OF [facility] Oct 10, 2021 10:15 AM AMBULATORY - NONE Marc DURBIN PT OF [facility] December 03, 2021 05:15 PM AMBULATORY - NONE [facility] Dec 28, 2021 11:00 AM AMBULATORY - MEDICINE [facility] Dec 28, 2021 12:30 PM AMBULATORY - NONE [facility] Jan 03, 2022 06:00 PM AMBULATORY - NONE [facility] Jan 04, 2022 10:15 AM AMBULATORY - NONE [facility] Jan 29, 2022 08:04 AM AMBULATORY - NONE [facility] Jan 29, 2022 09:15 AM AMBULATORY - NONE [facility] Social History: Smoking Status (Most current) and Tobacco Use (All prior to encounter date) This section includes the most current, and the historical, smoking and tobacco-related health factors from the [place] facility where the Encounter took place.Current Smoking Status This section includes the most current smoking, or tobacco-related health factor, from the [place] facility where the Encounter took place. Date/Time Current Smoking Status Comment Facility Jan 24, 2021 10:00 AM VA-TOBACCO USER EVERY DAY [facility] Tobacco Use History This section includes a history of the smoking, or tobacco- related health factors, that were collected on or before the date of the Encounter. The data comes from the [place] facility where the Encounter took place. Date/Time Smoking Status/Tobacco Use Comment [facility] Jan 24, 2021 10:00 AM [facility] Jan 24, 2021 10:00 AM VA-TOBACCO USE CONTRACTING ANALYST NO [facility] Jan 24, 2021 10:00 AM [facility] Jan 24, 2021 10:00 AM VA-TOBACCO USE WI [address] [facility] Jan 24, 2021 10:00 AM VA-TOBACCO USER EVERY DAY [facility] Aug 25, 2019 12:31 PM VA-TOBACCO FORMER USER MIN [facility] Aug 25, 2019 12:31 PM VA-TOBACCO QUIT < 1 YEAR [facility] November 11, 2017 08:04 AM CURRENT TOBACCO USER [facility] May 16, 2015 12:39 PM CURRENT TOBACCO USER [facility] Sep 16, 2013 11:37 AM CURRENT TOBACCO USER [facility] Mar 18, 2012 07:44 AM CURRENT TOBACCO USER [facility] Sep 17, 2010 09:11 AM CURRENT TOBACCO USER [facility] Mar 22, 2009 08:43 AM CURRENT TOBACCO USER [facility] Mar 28, 2008 11:14 AM CURRENT TOBACCO USER [facility] May 04, 2007 11:39 AM CURRENT TOBACCO USER [facility] May 04, 2007 11:34 AM CURRENT TOBACCO USER [facility] Aug 07, 2006 09:27 AM CURRENT TOBACCO USER [facility] Advance Directives: All historical and current Section Date Range: From patient's date of to the date document was created. This section includes ALL of a patient's completed or amended [place] Advance and Rescinded Directives. The entries below indicate that a directive exists for the patient, but an actual copy is not included with this document. The data comes from all [place] facilities. Date Advance Directives Provider Source Apr 22, [address] [facility] Radiology Reports: +/- 30 days of the [...] the Encounter. The data comes from all [place] treatment facilities. Date/Time Radiology Report Provider Source Sep 18, 2021 10:42 AM WRIST (LEFT) 3 OR MORE VIEWS: PERNELL TRUJILLO [facility] CHELI FITCH Gonzalez [id number] -[id number] F Exm Date: SEP 18, 2021@10:42 Req Phys: JACQUELIN RASCON Pat Loc: [facility] NRS-E O (Req'g Loc) Img Loc: [facility] DI[facility]NOSTIC Service: Unknown Screen: Patient answered no (Case [id number] COMPLE TE)WRIST (LEFT) 3 OR MORE VIEWS (RAD Detailed) CPT:93096 Proc Modifiers : LEFT CPT Modifiers : [...] 18, 2021 Date Verified: SEP 18, 2021 [employer] E-Sig:/ES/PERNELL TRUJILLO MD Report: Left wrist 4 views no comparison available. No acute fracture, dislocation or instability d etected. Joint spaces are maintained Impression: No acute fracture detected. Primary Diagnostic Code: NO ALERT REQUIRED Primary Interpreting Staff: PERNELL TRUJILLO MD, RADIOLOGY ([employer] [employer]) /JJO Sep 18, 2021 10:42 AM FOREARM (LEFT): PERNELL TRUJILLO [facility] [place] [facility] CHELI FITCH [id number] -[id number] F Exm Date: SEP 18, 2021@10:42 Req Phys: JACQUELIN RASCON Loc: [facility] NRS-E O (Req'g Loc) Img Loc: [facility] DIAGNOSTIC Service: Unknown Screen: Patient answered no (Case [id number] COMPLETE)FOREARM (LEFT) (R AD Detailed) CPT:30437 Proc Modifiers : LEFT CPT Modifiers : [...] 18, 2021 Date Verified: SEP 18, 2021 [employer] E-Sig:/ES/PERNELL TRUJILLO MD Report: Left forearm 2 [...] Primary Interpreting Staff: PERNELL TRUJILLO MD, RADIOLOGY ([employer]) /JJO Sep 18, 2021 10:42 AM ELBOW (LEFT) 3 OR MORE VIEWS: PERNELL TRUJILLO [facility] CHELI FITCH [id number] -[id number] F Exm Date: SEP 18, 2021@10:42 Req Phys: JACQUELIN RASCON Pat Loc: [facility] NRS-E O (Req'g Loc) Img Loc: [facility] Service: Unknown Screen: Patient answered no (Case [id number] COMPLE TE)ELBOW (LEFT) 3 OR MORE VIEWS (RAD Detailed) CPT:98777 Proc Modifiers : LEFT CPT Modifiers : [...] 18, 2021 Date Verified: SEP 18, 2021 [employer] E-Sig:/ES/PERNELL TRUJILLO MD Report: Left elbow 4 [...] Primary Interpreting Staff: PERNELL TRUJILLO MD, RADIOLOGY ([employer]) /JJO Encounter Notes: All associated encounter notes This section contains the clinical notes associated to the Encounter. Date/Time Encounter Note(s) Provider Source Sep 05, 2021 11:49 PM NURSING TELEPHONE ENCOUNTER NOTE: Concetta ARVIZU [facility] LOCAL TITLE: TELEPHONE CARE NURSE TRIAGE STANDARD TITLE: NURSING TELEPHONE ENCOUNTER NOTE DATE OF NOTE: SEP 05, 2021@23:49:40 ENTRY DATE: SEP 05, 2021@23:59:33 AUTHOR: JUDY ARVIZU EXP COSIGNER: URGENCY: STATUS: COMPLETED TELEPHONE CARE NURSE TRIAGE Has ADDENDA Type of call: DTN SYMPTOM. PCMM Provider Info: LOCAL [facility] ([phone] PACT: [facility] RYAN (Focus: Womens Health) Designated Pcp: CHRISTY RIBEIRO PHONE:[phone] PAGER:[phone] Training Coordinator: MARY FROST PHONE:[phone] Clinical Associate: SUE JUAREZ JANNIE:[phone] Production Generalist: ERIC MOYA PHON E:[phone] PACT Clinical Pharmacist: ZULLY VILLAGOMEZ PHONE:[phone] Clinical POC: Administrative POC: The patient, CHELI FITCH ([id number]) Phon e: called the call center. Contact Caller Area: *[facility] Caller Response: OTHER Chief Complaint: Not applicable to call. Nurse Notes: fell this evening while walking and loo jesu at he phone. When she fell, she struck her elbow/left ankle/left and k nee both. She stated she thought she would be okay but stated the pain has become extreme in her elbow/ left. She stated she is [place] at this time. Ad vised of our recommendations. Stated [facility] that she would be going too. LMW recommended to be seen NOW. [facility]. Phone Triage Jolene Sep 06 2021 00:52:07 GMT-0500 ([facility] nba Time) Demographics 46 y/o Female Results CC: Elbow Injury Nurse Recommendation: Now LM Suggestion: Now Nurse Recommended Follow-up [facility] Suggested Follow-up Location: Emergency de partment, [place] Values and Measures Pain scale: 7 Duration of CC: 1 Days Positive Responses HPI: elbow injury, within past 2 days HPI: elbow pain, severe HPI: elbow swelling, worsening, since the injur y Class Code: Other specified counseling. Imported Information: Clinical Contact/Call Center Coronavirus Disease 2019 (COVID-19) Screen, angelia. November 02, 2020 In the last 14 days have you had new onset of a ny of the following symptoms: () Chills Comment: () Cough Comment: () Diarrhea Comment: () Fatigue Comment: () Fever Comment: () Headache Comment: () Loss of Taste or Smell Comment: () Muscle pain (Myalgias) Comment: () Nausea Comment: () Runny nose (Rhinorrhea) Comment: () Shortness of breath (Dyspnea) Comment: () Sore throat Comment: () Vomiting Comment: (x) No symptoms Within the last 14 days, have you had: () Close exposure (within 6 feet for more than 15 minutes) to someone with a febrile/respiratory illness Comment: () Close exposure (within 6 feet for more than 15 minutes) to someone with known or suspected case of COVID-19 Comment: (x) No known exposure Any symptom or exposure equal to positive scree n () Patient has a POSITIVE symptom or exposure a nd requires further evaluation Nurse/Provider/Other notified: (x) Screen is negative () Patient is waiting on COVID-19 test results. Comment: () Patient reports prior COVID-19 Diagnosis. Co mment: Evaluation/Management Code: HC PRO PHONE CALL 5- 10 MIN ([id number]). Starting at: 09/05/2021 @ 11:49:40 PM Ending at: 09/05/2021 @ 11:55:55 PM Length: 6 minutes. Author: JUDY ARVIZU Patient's Email Address: [email or web address] /prerna/ Judy Arvizu RN TELECARE NURSE Signed: 09/05/2021 23:59 Receipt Acknowledged By: 09/06/2021 12:06 /prerna/ CHRISTY RIBEIRO M.D. STAFF PHYSICIAN 09/06/2021 ADDENDUM STATUS: COMPLETED Tried to call and left message. Asked he r to call PACT RN directly. Wondering if she will need a traveling consult to be seen by orthopedics while in [place] or not. Not sure how long she i s going to be there. /prerna/ CHRISTY RIBEIRO M.D. STAFF PHYSICIAN Signed: 09/06/2021 12:10 Receipt Acknowledged By: 09/06/2021 13:34 /princess FROST RN REGISTERED NURSE 09/06/2021 ADDENDUM STATUS: COMPLETED Gallery Or Museum Guide attempted to call x1 /princess FROST RN REGISTERED NURSE Signed: 09/06/2021 13:36 09/12/2021 ADDENDUM STATUS: COMPLETED [place] is requesting call back regarding ortho, as she reports she tried to call RN but was led to voice mail with vacation greeting. [place] can be reached at [phone]. /es/ ALBIN NESS VISN23 [facility] Signed: 09/12/2021 09:24 Receipt Acknowledged By: 09/12/2021 09:37 /es/ JAREK NIETO COMPUTER BUILDER NURSE for MARY FROST 09/12/2021 ADDENDUM STATUS: COMPLETED Called patient no answer left hippa sensitive me ssage and my direct line for call back. /es/ JAREK NIETO RN STAFF NURSE Signed: 09/12/2021 13:01 09/12/2021 ADDENDUM STATUS: COMPLETED Spoke with patient she has a fractured left elbo w and the orthopedics she was referred to in [place] by the local ER cant see her u ntil Mid October. Patient is having considerable pain and her elbow locks at times feels she needs to be seen sooner than October. Called Drea Carrillo Traveling Vet Coordinator l eft message Filled out traveling vet consult Will wait until Traveling Vet Coordinator call b ack then will call patient. /es/ JAREK NIETO RN STAFF NURSE Signed: 09/12/2021 10:22 09/12/2021 ADDENDUM STATUS: COMPLETED Travel nurse coordinator said that consult fille d out this AM should be adequate. Spoke with patient she reports she has already t alked with travel nurse coordinator and is getting m ore x-rays done and will be seen at the [facility]. /es/ JAREK NIETO RN STAFF NURSE Signed: 09/12/2021 13:09
--- OUTSIDE RECORDS SUMMARY | 2022-02-19 13:29 | XMS_ITS | Encounter Summary ---
:1975 Author Organization Department of [facility] rs Address [address] [place] [address] Support Name Relationship Address Phone DAVID VERNON Unavailable [address] [place] [address] DAVID VERNON Unavailable [address] [place] [address] RAEANN RODRIGUEZ Unavailable [address] [facility] [place] [address] Selected Encounter This section includes the information on record at [place] for the Encounter. Date/Time Encounter Type Encounter Description Reason Provider Source Jan 03, 2022 09:21 Outpatient Encounter EVENT (HISTORICAL) AM IHE Encounter Template Text not used by [place] Plan of Treatment: Future Appointments (+ 6 months) and Future Tests (+/- 45 days) The Plan of Treatment section includes future care activities for the patient from all [place] treatmentfacilities. This section includes future appointments and future orders which are active, pending orscheduled.Future Appointments This section includes appointments that were scheduled to occur 6 months from the date of the Encounter, up to a maximum of 20 appointments. The data comes from all [place] treatment facilities. Appointment Date/Time Appointment Type Appointment Facili ty Name Jan 04, 2022 10:15 AM AMBULATORY - NONE [facility] Jan 29, 2022 08:04 AM AMBULATORY - NONE [facility] Jan 29, 2022 09:15 AM AMBULATORY NONE [facility] Lab Results: +/- 30 days of the encounter This section includes the Chemistry and Hematology Lab Results on record with [place] for the patient. Radiology Reports and Pathology Reports are provided separately, in subsequent sections.Lab Results This section contains the Chemistry/Hematology Results that were resulted 30 days before or 30 daysafter the date of the Encounter. Date/Time Source Result Type Result - Unit Interpretation Reference Range Comment Jan 29, 2022 09:07 AM [facility] ALT/SGPT Specim en Type: PLASMA No comment enter ed. Ordering Provid er: CHRISTY RIBEIRO Report Released Date/Time: Jan 03, 2022 09:17 AM Reporting Lab: [facility] [address] [facility] [address] Performing Lab: [facility] [address] [facility] [address] ALT/SGPT 12 <55 Jan 29, 2022 09:07 AM [facility] AST/SGOT Specim en Type: PLASMA No comment enter ed. Ordering Provid er: CHRISTY RIBEIRO Report Released Date/Time: Jan 03, 2022 09:17 AM Reporting Lab: [facility] [address] [facility] [address] Performing Lab: [facility] [address] [facility] [address] AST/SGOT 17 <34 Jan 29, 2022 [facility] CREATININE(INCLUDES EGFR) Sp ecimen Type: PLASMA 09:07 AM No comment enter ed. Ordering Provid er: CHRISTY RIBEIRO Report Released Date/Time: Jan 03, 2022 09:17 AM Reporting Lab: [facility] [address] [facility] [address] Performing Lab: [facility] [address] [facility] [address] CREATININE 0.6 0.5-1.0 CREAT EGFR(CKD-EPI) >90 >60 Jan 29, 2022 09:07 AM [facility] CBC Specim en Type: BLOOD No comment enter ed. Ordering Provid er: CHRISTY RIBEIRO Report Released Date/Time: Jan 03, 2022 09:17 AM Reporting Lab: [facility] [address] [facility] [address] Performing Lab: [facility] [address] [facility] [address] WBC 8.61 4.0-11.0 RBC 4.53 4.0-5.4 HGB 15.0 11.5-16 HCT 44.6 34.5-48 MCV 98.5 80-100 MCH 33.1 H 27-33 MCHC 33.6 32.0-37.5 PLT 271 150-400 MPV 9.5 7.4-10.4 RDW 13.2 11.5-14.5 Dec 28, 2021 12:50 PM [facility] HEMOGLOBIN A1C Specim en Type: BLOOD No comment enter ed. Ordering Provid er: CHRISTY RIBEIRO Report Released Date/Time: Dec 28, 2021 11:57 AM Reporting Lab: [facility] [address] [facility] [address] Performing Lab: [facility] [address] [facility] [address] HEMOGLOBIN A1C 5.4 4.0-6.0 Dec 28, 2021 12:50 PM [facility] FSH Specim en Type: PLASMA Comment: Elevat ed triglyceride result from a non-fasting specimen should be interpreted with caution. A fasting panel is recommended for accurate triglycerides when trigs are >200 from a non-fasting specimen. Ordering Provid er: CHRISTY RIBEIRO Report Released Date/Time: Dec 28, 2021 11:57 AM Reporting Lab: [facility] [address] [facility] [address] Performing Lab: [facility] [address] [facility] [address] FSH 39.22 Dec 28, 2021 12:50 [facility] TSH W/REFLEX TO FREE Spec imen Type: PLASMA PM T4 Comment: Elevat ed triglyceride result from a non-fasting specimen should be interpreted with caution. A fasting panel is recommended for accurate triglycerides when trigs are >200 from a non-fasting specimen. Ordering Provid er: CHRISTY RIBEIRO Report Released Date/Time: Dec 28, 2021 11:57 AM Reporting Lab: [facility] [address] [facility] [address] Performing Lab: [facility] [address] [facility] [address] TSH 1.49 0.35-4.94 Dec 28, 2021 [facility] LIPID PANEL,NON-FASTING Spec imen Type: PLASMA 12:50 PM Comment: Elevat ed triglyceride result from a non-fasting specimen should be interpreted with caution. A fasting panel is recommended for accurate triglycerides when trigs are >200 from a non-fasting specimen. Ordering Provid er: CHRISTY RIBEIRO Report Released Date/Time: Dec 28, 2021 11:57 AM Reporting Lab: [facility] [address] [facility] [address] Performing Lab: [facility] [address] [facility] [address] CHOLESTEROL 266 H <199 .HDL 73 >50 LDL CALCULATION 149 H <99 VLDL CALCULATION 44 H <29 NON HDL CHOLESTEROL 193 H <129 TRIG(NON FASTING) 219 H <149 Social History: Smoking Status (Most current) and Tobacco Use (All prior to encounter date) This section includes the most current, and the historical, smoking and tobacco-related health factors from the [facility] where the Encounter took place.Current Smoking Status This section includes the most current smoking, or tobacco-related health factor, from the [place] facility where the Encounter took place. Date/Time Current Smoking Status Comment Facility Dec 28, 2021 11:00 AM VA-TOBACCO USER EVERY DAY [facility] Tobacco Use History This section includes a history of the smoking, or tobacco- related health factors, that were collected on or before the date of the Encounter. The data comes from the [place] facility where the Encounter took place. 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 [facility] Dec 28, 2021 11:00 AM VA-TOBACCO USE MED YES MIN [facility] Dec 28, 2021 11:00 AM VA-TOBACCO USE WI 30 MIN OF WAKEUP [facility] Dec 28, 2021 11:00 AM VA-TOBACCO USER EVERY DAY [facility] Jan 24, 2021 10:00 AM VA-TOBACCO USE > 15 LESS THAN 30 [facility] YEARS Jan 24, 2021 10:00 AM VA-TOBACCO [facility] Jan 24, 2021 10:00 AM 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 May 16, 2015 12:39 PM CURRENT TOBACCO USER [facility] Sep 16, 2013 11:37 AM CURRENT TOBACCO USER [facility] Mar 18, 2012 07:44 AM CURRENT TOBACCO USER [facility] Sep 17, 2010 09:11 AM CURRENT TOBACCO USER [facility] Mar 22, 2009 08:43 AM CURRENT TOBACCO USER [facility] Mar 28, 2008 11:14 AM CURRENT TOBACCO USER [facility] May 04, 2007 11:39 AM CURRENT TOBACCO USER [facility] May 04, 2007 11:34 AM CURRENT TOBACCO USER [facility] Aug 07, 2006 09:27 AM CURRENT TOBACCO USER [facility] Advance Directives: All historical and current Section Date Range: From patient's date of to the date document was created. This section includes ALL of a patient's completed or amended [place] Advance and Rescinded Directives. The entries below indicate that a directive exists for the patient, but an actual copy is not included with this document. The data comes from all [place] facilities. Date Advance Directives Provider Source Apr 22, 2003 ADVANCE DIRECTIVE LUZ ASHBY [facility] Pathology Reports: +/- 30 days [...] the Encounter. The data comes from all [place] treatment facilities. Date/Time Pathology Report Provider Source Dec 28, 2021 12:44 PM LR MICROBIOLOGY REPORT: [place] [facility] Reporting Lab: [facility] [[id number]# [id number]] [place] [address] Accession [UID]: [id number] [[id number]] Receive d: Dec 28, 2021@12:44 Collection sample: CLIPPINGS Collection date: 2021 12:44 Site/Specimen: NAIL Provider: CHRISTY RIBEIRO Comment on specimen: RECEIVED IN STERILE CUP Test(s) ordered: HUANG FUNGAL PREP....... ........ completed: Jan 01, 2022 10:17 MYCOLOGY CULTURE.............. completed: Jan [id number] * MYCOLOGY FINAL REPORT => Jan 25, 2022 10:09 TE CH CODE: [id number] MYCOLOGY SMEAR/PREP: HUANG PREP: 1+ SEPTATE HYPHAE, 3-4 MICRONS WIDE CULTURE PENDING Fungus/Yeast: NO DERMATOPHYTES ISOLATED Mycology Remark(s): THIS REPORT IS FINAL =--=--=--=--=--=--=--=--=--=--=--=--=--= --=--=--=--=--=--=--=--=--=--=--=--=-- Performing Laboratory: Mycology Report Performed By: [facility] [CLIA# [id number]] [place] [address] Encounter Notes: All associated encounter notes This section contains the clinical notes associated to the Encounter. Date/Time Encounter Note(s) Provider Source Jan 03, 2022 09:21 AM ALLERGY & IMMUNOLOGY ADVERSE EVENT NOTE: CHRISTY NORTON [facility] LOCAL TITLE: Adverse React/Allergy STANDARD TITLE: ALLERGY & IMMUNOLOGY ADVERSE [place] NT NOTE DATE OF NOTE: JAN 03, 2022@09:21:19 ENTRY DATE: JAN 03, 2022@09:21:19 AUTHOR: CHRISTY RIBEIRO EXP COSIGNER: URGENCY: STATUS: COMPLETED This patient has had the following reactions signed-off on Jan 03, 2022@09:21:19. CITALOPRAM /prerna/ CHRISTY RIBEIRO M.D. STAFF PHYSICIAN Signed: 01/03/2022 09:22
--- OUTSIDE RECORDS SUMMARY | 2022-02-19 13:29 | XMS_ITS | Encounter Summary ---
:1975 Author Organization Department of [facility] rs Address [address] [place] [address] Care Team Providers Name Role Phone CHRISTY RIBEIRO Primary Care Provider Unavailable Selected Encounter This section includes the information on record at [place] for the Encounter. Date/Time Encounter Type Encounter Description Reason Provider Source Apr 18, 2021 02:59 Outpatient Encounter TELEPHONE TRIAGE PM IHE Encounter Template Text not used by [place] Plan of Treatment: Future Appointments (+ 6 months) and Future Tests (+/- 45 days) The Plan of Treatment section includes future care activities for the patient from all [place] treatmentfacilities. This section includes future appointments and future orders which are active, pending orscheduled.Future Appointments This section includes appointments that were scheduled to occur 6 months from the date of the Encounter, up to a maximum of 20 appointments. The data comes from all [place] treatment facilities. Appointment Date/Time Appointment Type Appointment Facili ty Name May 25, 2021 09:30 AM AMBULATORY - NONE [facility] Sep 18, 2021 10:45 AM [facility]ORY - NONE [facility] Sep 19, 2021 10:40 AM AMBULATORY - SURGERY Marc Mcclellan E[facility] OF [facility] Oct 10, 2021 10:15 AM AMBULATORY - NONE Marc DURBIN PT OF [facility] Active, Pending, and Scheduled Orders This section includes a listing of several types of active, pending, and scheduled orders, including clinic medications orders, diagnostic test orders, procedure orders and consult orders; where the start date of the order is 45 days before the date of the Encounter or 45 days after the date of the Encounter. The data comes from all [place] treatment facilities. Test Date/Time Test Type Test Details Facility Name May 03, 2021 12:00 AM Laboratory - Chemistry CBC BLOOD SP ONCE M [facility] Order May 03, 2021 12:00 AM Laboratory - Chemistry BASIC METABOLIC MIN [facility] Order PANEL+MG PLASMA SP Social History: Smoking Status (Most current) and Tobacco Use (All prior to encounter date) This section includes the most current, and the historical, smoking and tobacco-related health factors from the [place] facility where the Encounter took place.Current Smoking Status This section includes the most current smoking, or tobacco-related health factor, from the [facility] where the Encounter took place. Date/Time Current Smoking Status Comment Facility Jan 24, 2021 10:00 AM VA-TOBACCO USER EVERY DAY [facility] Tobacco Use History This section includes a history of the smoking, or tobacco- related health factors, that were collected on or before the date of the Encounter. The data comes from the [facility] where the Encounter took place. Date/Time Smoking Status/Tobacco Use Comment 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 [facility] Jan 24, 2021 10:00 AM VA-TOBACCO USE MED NO [facility] Jan 24, 2021 10:00 AM VA-TOBACCO USE WI 30 MIN OF WAKEUP [facility] Jan 24, 2021 10:00 AM VA-TOBACCO USER EVERY DAY [facility] Aug 25, 2019 12:31 PM VA-TOBACCO FORMER USER MIN [facility] Aug 25, 2019 12:31 PM VA-TOBACCO QUIT < 1 YEAR M [facility] November 11, 2017 08:04 AM CURRENT TOBACCO USER [facility] May 16, 2015 12:39 PM CURRENT TOBACCO USER [facility] Sep 16, 2013 11:37 AM CURRENT TOBACCO USER [facility] Mar 18, 2012 07:44 AM CURRENT TOBACCO USER [facility] Sep 17, 2010 09:11 AM CURRENT TOBACCO USER [facility] Mar 22, 2009 08:43 AM CURRENT TOBACCO USER [facility] Mar 28, 2008 11:14 AM CURRENT TOBACCO USER [facility] May 04, 2007 11:39 AM CURRENT TOBACCO USER [facility] May 04, 2007 11:34 AM CURRENT TOBACCO USER [facility] Aug 07, 2006 09:27 AM CURRENT TOBACCO USER [facility] Advance Directives: All historical and current Section Date Range: From patient's date of to the date document was created. This section includes ALL of a patient's completed or amended [place] Advance and Rescinded Directives. The entries below indicate that a directive exists for the patient, but an actual copy is not included with this document. The data comes from all [place] facilities. Date Advance Directives Provider Source Apr 22, 2003 ADVANCE DIRECTIVE ISMALUZ Paige [facility] Encounter Notes: All associated encounter notes This section contains the clinical notes associated to the Encounter. Date/Time Encounter Note(s) Provider Source Apr 18, 2021 02:59 PM REPORT OF CONTACT: NAZARIO RIOS [facility] LOCAL TITLE: PATIENT CONTACT NOTE STANDARD TITLE: REPORT OF CONTACT DATE OF NOTE: APR 18, 2021@14:59 ENTRY DATE: APR 18, 2021@14:59:51 AUTHOR: NAZARIO RIOS EXP COSIGNER: URGENCY: STATUS: COMPLETED PATIENT CONTACT NOTE Has ADDENDA Primary Care Call Center is requesting a new consults for: Orderable Item: GYNECOLOGY OUTPT Consult: Consult Request Provisional Diagnosis: Abnormal Uterine and Vagi nal Bleeding, unspecified(ICD-10-CM N93.9) Was delayed due to covid. Please palce consult and inform the to s anika. Phone number verified as correct. [phone] /es/ NAZARIO RIOS [id number] CCC MSA Signed: 04/18/2021 15:02 Receipt Acknowledged By: 04/18/2021 16:58 /es/ CHRISTY RIBEIRO M.D. STAFF PHYSICIAN 04/19/2021 13:04 /es/ ILIA FROST,RN REGISTERED NURSE 04/18/2021 ADDENDUM STATUS: COMPLETED Please call pt. I need some additional i nformation. She was seen by Dr. Rousseau in the past for bleeding. Evaluation was negative. She was started on depo provera to help with managing the bleeding. Is s he still taking that? Dr. Rousseau wanted me to reassess where things were at in a year or so. That was last November. Can you pls set up phone appt with patient? I kenny ve openings this Friday I believe at 1 pm and 1:30 pm. If she doesn't want to do phone I can do VVC during that time as well. /prerna/ CHRISTY RIBEIRO M.D. 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 ribeiro to discuss f urther transferred up front to schedule /prerna/ ILIA FROST RN REGISTERED NURSE Signed: 04/19/2021 13:08
--- OUTSIDE RECORDS SUMMARY | 2022-02-19 13:29 | XMS_ITS | Encounter Summary ---
:1975 Author Organization Department of [facility] Address [address] [place] [address] Care Team Providers Name Role Phone CHRISTY RIBEIRO Primary Care Provider Unavailable Selected Encounter This section includes the information on record at DC for the Encounter. Date/Time Encounter Type Encounter Reason Provider Source Description Dec 28, 2021 OFFICE O/P EST COMP [facility] ICD-10-CM CHRISTY RIBEIRO 11:00 AM MOD 30-39 MIN H60.8X3 Other otitis externa, bilateral with Provider Comments: Other Otitis Externa, Bilateral IHE Encounter Template Text not used by DC Assessments - Encounter Diagnoses This section includes the primary and secondary diagnoses documented for the Encounter. Date/Time Primary/Secondary Diagnosis Name Provider Source Diagnosis Dec 28, 2021 PRIMARY Other otitis CHRISTY RIBEIRO [facility] 04:59 PM externa, bilateral HCS Dec 28, 2021 SECONDARY Other [facility] PM disorders [facility] Dec 28, 2021 SECONDARY Unspecified [facility] 04:59 PM menopausal and HCS perimenopausal disorder Plan of Treatment: Future Appointments (+ 6 months) and Future Tests (+/- 45 days) The Plan of Treatment section includes future care activities for the patient from all DC treatmentfacilities. This section includes future appointments and future orders which are active, pending orscheduled.Future Appointments This section includes appointments that were scheduled to occur 6 months from the date of the Encounter, up to a maximum of 20 appointments. The data comes from all DC treatment facilities. Appointment Date/Time Appointment Type Appointment Facili ty Name Jan 03, 2022 06:00 PM AMBULATORY - NONE [facility] Jan 04, 2022 10:15 AM AMBULATORY - NONE [facility] Jan 29, 2022 08:04 AM AMBULATORY - NONE [facility] Jan 29, 2022 09:15 AM AMBULATORY - [facility] Lab Results: +/- 30 days of the encounter This section includes the Chemistry and Hematology Lab Results on record with DC for the patient. Radiology Reports and Pathology Reports are provided separately, in subsequent sections.Lab Results This section contains the Chemistry/Hematology Results that were resulted 30 days before or 30 daysafter the date of the Encounter. Date/Time Source Result Type Result - Unit Interpretation Reference Range Comment Dec 28, 2021 [facility] LIPID PANEL,NON-FASTING Spec imen Type: PLASMA 12:50 PM Comment: Elevat ed triglyceride result from a non-fasting specimen should be interpreted with caution. A fasting panel is recommended for accurate triglycerides when trigs are >200 from a non-fasting specimen. Ordering Provid er: CHRISTY RIBEIRO Report Released Date/Time: Dec 28, 2021 11:57 AM Reporting Lab: [facility] [address] [facility] [id number] Performing Lab: [facility] [address] [facility] [id number] CHOLESTEROL 266 mg/dL H <199 .HDL 73 mg/dL >50 LDL CALCULATION 149 mg/dL H <99 VLDL CALCULATION 44 mg/dL H <29 NON HDL CHOLESTEROL 193 mg/dL H <129 TRIG(NON FASTING) 219 mg/dL H <149 Dec 28, 2021 12:50 PM [facility] HEMOGLOBIN A1C Specim en Type: BLOOD No comment enter ed. Ordering Provid er: CHRISTY RIBEIRO Report Released Date/Time: Dec 28, 2021 11:57 AM Reporting Lab: [facility] [address] [facility] [id number] Performing Lab: [facility] [address] [facility] [id number] HEMOGLOBIN A1C 5.4 4.0-6.0 Dec 28, 2021 12:50 PM [facility] FSH Specim en Type: PLASMA Comment: Elevat ed triglyceride result from a non-fasting specimen should be interpreted with caution. A fasting panel is recommended for accurate triglycerides when trigs are >200 from a non-fasting specimen. Ordering Provid er: CHRISTY RIBEIRO Report Released Date/Time: Dec 28, 2021 11:57 AM Reporting Lab: [facility] [address] [facility] [id number] Performing Lab: [facility] [address] [facility] [phone] FSH 39.22 m[IU]/mL Dec 28, 2021 12:50 [facility] TSH W/REFLEX TO FREE Spec imen Type: PLASMA PM T4 Comment: Elevat ed triglyceride result from a non-fasting specimen should be interpreted with caution. A fasting panel is recommended for accurate triglycerides when trigs are >200 from a non-fasting specimen. Ordering Provid er: CHRISTY RIBEIRO Report Released Date/Time: Dec 28, 2021 11:57 AM Reporting Lab: [facility] [address] [facility] [phone] Performing Lab: [facility] [id number] TSH 1.49 u[IU]/mL 0.35-4.94 Vital Signs: All taken on the encounter date This section contains inpatient and outpatient Vital Signs collected on the date of the Encounter. Date/Time Temperature Pulse Blood Respiratory SP02 Pain Height Weight Ricardo dy Source Pressure Rate Mass Index Dec 28 111/77 18 /min 97 % 4 65.5 in 138.3 23 [place] 2021 11:34 /min mm[Hg] lb [facility] Social History: Smoking Status (Most current) and Tobacco Use (All prior to encounter date) This section includes the most current, and the historical, smoking and tobacco-related health factors from the DC facility where the Encounter took place.Current Smoking Status This section includes the most current smoking, or tobacco-related health factor, from the DC facility where the Encounter took place. Date/Time Current Smoking Status Comment Facility Dec 28, 2021 11:00 AM DC-TOBACCO USER EVERY DAY [facility] Tobacco Use History This section includes a history of the smoking, or tobacco- related health factors, that were collected on or before the date of the Encounter. The data comes from the DC facility where the Encounter took place. 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 NO [facility] Dec 28, 2021 11:00 AM VA-TOBACCO USE MED YES MIN [facility] Dec 28, 2021 11:00 AM VA-TOBACCO USE WI 30 MIN OF WAKEUP [facility] Dec 28, 2021 11:00 AM VA-TOBACCO USER EVERY DAY [facility] Jan 24, 2021 10:00 AM VA-TOBACCO USE > 15 LESS THAN 30 [facility] YEARS Jan 24, 2021 10:00 AM VA-TOBACCO USE ADVICE [facility] Jan 24, 2021 10:00 AM 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 USE 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 INTEGRATED NO [facility] Jan 24, 2021 10:00 AM VA-TOBACCO USE MED NO [facility] Jan 24, 2021 10:00 AM VA-TOBACCO USE WI 30 MIN OF WAKEUP [facility] Jan 24, 2021 10:00 AM VA-TOBACCO USER EVERY DAY [facility] Aug 25, 2019 12:31 PM VA-TOBACCO FORMER USER [facility] Aug 25, 2019 12:31 PM VA-TOBACCO QUIT < 1 YEAR [facility] November 11, 2017 08:04 AM CURRENT TOBACCO USER [facility] May 16, 2015 12:39 PM CURRENT TOBACCO USER [facility] Sep 16, 2013 11:37 AM CURRENT TOBACCO USER [facility] Mar 18, 2012 07:44 AM CURRENT TOBACCO USER [facility] Sep 17, 2010 09:11 AM CURRENT TOBACCO USER [facility] Mar 22, 2009 08:43 AM CURRENT TOBACCO USER [facility] Mar 28, 2008 11:14 AM CURRENT TOBACCO USER [facility] May 04, 2007 11:39 AM CURRENT TOBACCO USER [facility] May 04, 2007 11:34 AM CURRENT TOBACCO USER [facility] Aug 07, 2006 09:27 AM CURRENT TOBACCO USER [facility] Advance Directives: All historical and current Section Date Range: From patient's date of to the date document was created. This section includes ALL of a patient's completed or amended DC Advance and Rescinded Directives. The entries below indicate that a directive exists for the patient, but an actual copy is not included with this document. The data comes from all [place] facilities. Date Advance Directives Provider Source Apr 22, 2003 ADVANCE DIRECTIVE LUZ ASHBY [facility] Pathology Reports: +/- 30 days of [...] the Encounter. The data comes from all [place] treatment facilities. Date/Time Pathology Report Provider Source Dec 28, 2021 12:44 PM LR MICROBIOLOGY REPORT: [facility] Reporting Lab: [facility] [CLIA# [id number]] [place] [address] Accession [UID]: [id number] [[id number]] Receive d: Dec 28, 2021@12:44 Collection sample: CLIPPINGS Collection date: 2021 12:44 Site/Specimen: NAIL Provider: CHRISTY RIBEIRO Comment on specimen: RECEIVED IN STERILE CUP Test(s) ordered: HUANG FUNGAL PREP....... ........ completed: Jan 01, 2022 10:17 MYCOLOGY CULTURE.............. completed: Jan [id number] * MYCOLOGY FINAL REPORT => Jan 25, 2022 10:09 TE CODE: [id number] MYCOLOGY SMEAR/PREP: HUANG PREP: 1+ SEPTATE HYPHAE, 3-4 MICRONS WIDE CULTURE PENDING Fungus/Yeast: NO DERMATOPHYTES ISOLATED Mycology Remark(s): THIS REPORT IS FINAL =--=--=--=--=--=--=--=--=--=--=--=--=--= --=--=--=--=--=--=--=--=--=--=--=--=-- Performing Laboratory: Mycology Report Performed By: [facility] [CLIA# [id number]] [place] [address] Encounter Notes: All associated encounter notes This section contains the clinical notes associated to the Encounter. Date/Time Encounter Note(s) Provider Source Jan 03, 2022 09:18 REPORT OF CONTACT: CHRISTY RIBEIRO [facility] AM LOCAL TITLE: PATIENT CONTACT NOTE STANDARD TITLE: REPORT OF CONTACT DATE OF NOTE: JAN 03, 2022@09:18 ENTRY DATE: JAN 03, 2022@09:18:32 AUTHOR: CHRISTY RIBEIRO EXP COSIGNER: URGENCY: STATUS: COMPLETED PATIENT CONTACT NOTE Has ADDENDA Pls contact pt. Mediction sent to window and labs are ordered. Pls tell her not to start medication unt il she hears from me that her labs are normal. If fails SSRIs the next medication I would try f or hot flashes would be gabapentin. Would take 300 mg at hs. May make her sleepy. W eight gain is also potential side effect but not typically at those doses. Wellbutrin does not work for hot flashes. If she wants to try the ga bapentin let me know. /prerna/ CHRISTY RIBEIRO M.D. STAFF PHYSICIAN Signed: 01/03/2022 09:20 Receipt Acknowledged By: 01/03/2022 09:25 /prerna/ ADRIANA BAIRD RN RN for MARY FROST 01/03/2022 ADDENDUM STATUS: COMPLETED Edwards in agreement for labs and waiting on med ication. She is open to trying Gabapentin and would like that ordered. /prerna/ ADRIANA BAIRD RN RN Signed: 01/03/2022 09:26 Receipt Acknowledged By: 01/03/2022 14:29 /prerna/ CHRISTY RIBEIRO M.D. STAFF PHYSICIAN 01/25/2022 ADDENDUM STATUS: COMPLETED Pls call pt. Is she going to get her lab s done for the toenail fungus? Culture also came back positive. I n eed the labs before I can give her the ok to start. /princess RIBEIRO M.D. STAFF PHYSICIAN Signed: 01/25/2022 16:12 Receipt Acknowledged By: 01/28/2022 16:01 /prerna/ ILIA FROST RN REGISTERED NURSE 01/28/2022 ADDENDUM STATUS: COMPLETED documentation writer spoke to patient via phone and sh e will come in tomorrow for lab at 9am still can't hear out of her left ear, was just seen one month ago for ear issue requests ENT consult be placed she was told she has swimmers ear but hasn't got ten any relief from the meds /es/ ILIA FROST RN REGISTERED NURSE Signed: 01/28/2022 16:01 Dec 28, 2021 11:38 [facility] OUTPATIENT NOTE: SUE [facility] TITLE: WOMEN'S CLINIC NURSING NOTE NORMA PATEL TITLE: [facility] NURSING OUTPATIENT NOTE DATE OF NOTE: DEC 28, 2021@11:38 ENTRY DATE: DEC 28, 2021@11:38:04 AUTHOR: SUE JUAREZ MA EXP COSIGNER: URGENCY: STATUS: COMPLETED TYPE OF VISIT: Appointment Check In Type of appointment: In-person appointment REASON FOR VISIT: 6 month follow up ALLERGIES: PENICILLIN (Jan 01, 2008) CODEINE (Jan 01, 2008) VICODIN (Mar 21, 2012) MORPHINE (Mar 23, 2014) VITAL SIGNS: Blood Pressure: 111/77 (12/28/2021 11:34) Pulse: 113 (12/28/2021 11:34) Respiration: 18 (12/28/2021 11:34) Temperature: 98.1 F [36.7 C] (10/18/2020 14:19) Weight: 138.3 lb [62.73 kg] (12/28/2021 11:34) Height: 65.5 in [166.4 cm] (12/28/2021 11:34) BMI: 22.7 O2 Sat: 97% (12/28/2021 11:34) Pain: 4 (12/28/2021 11:34) PAIN SCREEN: Patient is not having significant pain that the y wish to discuss with their provider today. MEDICATION Over the Counter/Herbal Medications: The patient denies taking any outside medicatio ns or herbals. FEMALE Contraception: none : 0 Para: 0,0,0,0 Last [place]: [place]2019 [place] Homelessness/Food Insecurity Screen: In the past 2 months, have you been living in s table housing that you own, rent, or stay in as part of a household? Y es - Living in stable housing. Are you worried or concerned that in the next 2 months you may NOT have stable housing that you own, rent, or stay in a s part of a household? No - Not worried about housing near future The reports the following: Within the past 12 months, you worried whether your food would run out before you got money to buy more. Never true Within the past 12 months, the food you bought just didn't last and you didn't have money to get more. Never true Tobacco Use Screening: The patient uses tobacco every day. The patient uses tobacco within 30 minutes of w aking up. The patient has been smoking or using tobacco f or more than fifteen years and less than thirty years. Patient was advised to quit smoking and/or usin g tobacco. Discussion with patient included: - Quitting smoking or tobacco use is one of the most important things you can do to protect and improve your h ealth and DC has the resources to support you. - Set a quit date when you are ready to quit. - Get support from your family and friends. - Review any past quit attempts- What helped? W hat didn't? - On the day you plan to quit, get rid of all c igarettes and tobacco products from your home, car or work. - Using a combination of behavioral counseling or other support strategies and FDA-approved cessation medicatio ns is the most effective way to ensure success in quitting. Patient was offered Behavioral Counseling and o ther support strategies to assist with quitting. Discussion with patient i ncluded: - Behavioral counseling or other support gerri grace greatly increases your chances of successfully quitting smoking or tobacco use by helping you develop a quit plan and providing support and other strategies to make behavioral changes to help you quit. - [place] has a number of behavioral counseling opti ons to help you with quitting, including: * Provide information about the facility smokin g or tobacco use treatment options or clinics * [place]'s national quitline, 5-412-GPVZ-VET, with counseling available Friday-Friday The patient was not interested in receiving add itional information about how to use the treatment options nancie faye Patient was offered FDA-approved cessation medi cations. Discussion with patient included: - Medications for Nicotine replacement therapy such as the patch, gum or lozenge, and other medications otto ch as varenicline or bupropion, can play an important role in the initial weeks and months after you quit smoking or tobacco us e. - Medications help with cravings and withdrawal symptoms and they greatly increase your chances of successfully q uitting. Yes, Provider notified of patient's request for medication. Alcohol Use Screen (AUDIT-C): Alcohol Screen: SCREEN FOR ALCOHOL (AUDIT-C) An alcohol screening test (AUDIT-C) was negativ e (score=2). 1. How often did you have a drink containing al cohol in the past year? Two to four times a month 2. How many drinks containing alcohol did you h ave on a typical day when you were drinking in the past year? One or two drinks 3. How often did you have 4 or more drinks on o ne occasion in the past year? Never Depression Screening: Perform PHQ-2 A PHQ-2 screen was performed. The score was 0 w hich is a negative screen for depression. Over the past two weeks, how often have you bee n bothered by the following problems? 1. Little interest or pleasure in doing things Not at all 2. Feeling down, depressed, or hopeless Not at all Suicide Screen: C-SSRS Screening [place] Suicide Severity Rating Scale (C-SSRS) screener 1. Over the past month, have you wished you wer e or wished you could go to sleep and not wake up? No 2. Over the past month, have you had any actual thoughts of killing yourself? No 3. Over the past month, have you been thinking about how you might do this? Response not required due to responses to other questions. 4. Over the past month, have you had these thou ghts and had some intention of acting on them? Response not required due to responses to other questions. 5. Over the past month, have you started to wor k out or worked out the details of how to kill yourself? Response not required due to responses to other questions. 6. If yes, at any time in the past month did yo u intend to carry out this plan? Response not required due to responses to other questions. 7. In your lifetime, have you ever done anythin g, started to do anything, or prepared to do anything to end you r life (for example, collected pills, obtained a gun, gave away valu reynaldo, went to the roof but didn't jump)? No 8. If YES, was this within the past 3 months? Response not required due to responses to other questions. Patient declines to receive Pneumoccal vaccinati on today. Nursing Annual reminder not completed due to int erruption by Provider to meet with patient. /prerna/ ACRO JUAREZ LPN LPN Signed: 12/28/2021 11:57 Dec 28, 2021 11:25 [facility] OUTPATIENT E & M NOTE: [facility]IB[facility]O [facility] LOCAL TITLE: WOMEN'S CLINIC NOTE STANDARD TITLE: [facility] OUTPATIENT E & M N OTE DATE OF NOTE: DEC 28, 2021@11:25 ENTRY DATE: DEC 28, 2021@11:25:33 AUTHOR: CHRISTY RIBEIRO EXP COSIGNER: URGENCY: STATUS: COMPLETED WOMEN'S CLINIC NOTE Has ADDENDA Assessment/Plan: The patient is a 46 yo FEMALE w ho comes in for follow up. 1. Otitis externa with underlying chronic ezcema of the ear canal -tx acute infection x 1 week with cipro/dexameth asone ear drops -chronic maintenance therapy with fluonisilone 0 .1% oil 5 drops to each ear weekly. -if not improving, plan referral to ENT. 2. Yellow nails with debris failed topical therapy otc. clippings sent for HUANG and culture today will notify pt of rsults. 3. HCM reviewed with . due for pap smear next year. h/o CHELI 3 o n colpo in 2005 s/p LEEP. will need q3 yr follow up indefinitely mammogram scheduled breast MRI this June. colonoscopy reordered. Pt wi h/o diveritulitis so should have this to exclude mass/polyp. 4. Vasomotor sx of menopause Pt is i n menopause with anemorrhea x 1 year and elevated FSH today. would avoid systemic HRT due to increased risk of breast cancer (renetta medrano 25% lifetime risk). Pt in agreement. Interested in trial of SSRI for hot flashes. starting citalopram 10 mg daily x 1 week then in crease to 20 mg qd. rtc early 2022 for pap/annual exam. labs today. DM screen,lipids. Christy Ribeiro MD, FACP Staff Physician [facility] ---- Nurse's Notes Reviewed. S: The patient is a 46 yo FEMALE who comes in to day for evaluation of ear dicharge and yellow nail. 1. Ear issues. pt was recnetly in [facility] Treated fo r external otitis with itching, pain. noted some drainage from her ears . got drops and improved somewhat and feels like it came back. unsure wha t was treated with in urgent care. has had recurrent issues with htis in the past. no fevers or sinus issues. some seasonal allergy issues for which i s taking flonase (helps). Notes lots of itching. feels liek some drainage again (yellowish). no change in hearing. would like to have checked again. had r equested refill of drops over hte phone but wanted to look at her ears. 2. Notes yellow nails that are thick L foot. not es great toe and 2nd toe. has been doing some otc treamtents for this wihtout any change in appearance. not helping. no pain with this. thinks fungal infect ion. 3. notes periods stopped about a year ag o. mother and GM in menopause mid 40s. having bothersome hot flashes. wakes her from eep and affecting day to day life. Would be interested in treatment of this. HCM pap 2019. h/o CHELI 3 colposcopy 07/2005 s/ p LEEP. needs q3 yr pap smears through 2030. colon cancer-DUE. h/o diverticulitis one year ag o. mammogram-scheduled. alt q6 mos with MRI. COVID vaccine-repeatedly declined. Menses: done over 1 year. has hot flashes. Medication and Allergies are reviewed and update d. Past medical history/Active Problems: Active Problems: Active problems - Computerized Problem List is t he source for the followin. Mild persistent asthma controlled (SNOMED CT [id number]) 2. Cervicalgia 3. Back pain, low 4. Fatigue and Malaise 5. Anxiety state/reaction 6. Paroxysmal SVT 7. Insomnia, Unspec 8. Surg Hx: LEEP, adenoids and possible tonsils , 9. Certified Endoscopy Technician Hx: , cervical dysplasia s/p leep 10. Soc Hx: working in a [place], live in boyfriend, + tobacco, occ etoh, no drugs 11. Osteoarthritis (SNOMED CT [id number]) 12. Fibromyalgia 13. History of reduction of breast - 10/2016 bilateral 14. High risk for breast cancer - alternating mammogram/MRI every 6 mos. Risk > 25% on [place] and 23.7% on BCRAT 15. Supraventricular tachycardia 16. Diverticulitis of colon Physical Exams: Vitals: 12/28/2021 11:34 113 18 111/77 65.5 138.3 4 97 General Well appearing and NAD HEENT: noted erythema of armen ear canals. no puru lent d/c noted. the TM are nl armen. Marked scaling noted of external canal exte nding onto the outer ear. OP clear. neck supple. no lad ext: noted L great toe and 2nd toe with marked t hickening of nail, with yellowing and debris under the nail. surroujding skin appears normal. no drainage, erythema. /prerna/ CHRISTY RIBEIRO M.D. STAFF PHYSICIAN Signed: 12/28/2021 16:59 01/01/2022 ADDENDUM STATUS: COMPLETED Pls contact pt. HUANG On toenail consistent wi th fungal infection. Treatment requires 12 weeks of treatment with terbenifine. The topical medicati ons have not worked for her. Would need baseline liver tests,CBC creatinine p rior to starting treatment. Would avoid ETOH use during treatment due to pot ential side effects on the liver. Will need to do these labs prior to reggie tment. Can prob get these drawn at the [facility] if this is closer for her. Pls le t me know. /princess RIBEIRO M.D. STAFF PHYSICIAN Signed: 01/01/2022 13:53 Receipt Acknowledged By: 01/03/2022 08:34 /prerna/ ADRIANA BAIRD RN RN for MARY FROST 01/02/2022 ADDENDUM STATUS: COMPLETED Called and left VM with direct number for return call. /prerna/ GERMAN NAVARRO RN REGISTERED NURSE Signed: 01/02/2022 14:08 01/03/2022 ADDENDUM STATUS: COMPLETED Called and spoke to . She will be in the area tomorrow and would like to stop by [facility] for labs on 01/04/22 at 1000. She is wondering if she can corn picker the medication at the same time or if sh e will need to wait until labs result? Also, Mariana said she had to stop taking the C italopram that Dr. Ribeiro recently prescribed for pre-menopause and night sweats. Mariana reported she was very fatigued on it, the n became itchy and finally broke out in a rash. She is wondering if she could be changed to another medication and specifically asked is Wellbutrin would work well for her symp toms has she has tolerated it well in the past. /prerna/ ADRIANA BAIRD RN RN Signed: 01/03/2022 08:38 Receipt Acknowledged By: * AWAITING SIGNATURE * CHRISTY RIBEIRO * AWAITING SIGNATURE * BERKLEY HOOD Dec 28, 2021 11:00 ADVANCE DIRECTIVE: ABDELRAHMAN OLSEN [facility] TITLE: AD NOTIFICATION AND SCREENING STANDARD TITLE: ADVANCE DIRECTIVE DATE OF NOTE: DEC 28, 2021@11:00 ENTRY DATE: DEC 28, 2021@11:00:32 AUTHOR: ABDELRAHMAN OLSEN EXP COSIGNER: URGENCY: STATUS: COMPLETED ADVANCE DIRECTIVE NOTIFICATION: I was unable to give the patient written notifi cation of the following rights because: Comment: Denied ADVANCE DIRECTIVE SCREENING: Does patient have an Advance Directive? The patient does not have an Advance Directive. The patient does not wish to create an Advance Directive for health care. /prerna/ ABDELRAHMAN OLSEN Advanced MSA Signed: 12/28/2021 11:00
== END 2022-01-25 13:50 | disposition home or self-care (01) ==
LOC: ED 13:42
PROVIDERS: Emergency Provider Family Medicine
DX: H60.92 Unspecified otitis externa, left ear (principal)
CPT/HCPCS: 99283

== ENCOUNTER 2022-02-24 14:50 | Emergency (ER) | payer OTHER, SELFPAY ==
[2022-02-24 14:55] VITALS: BP 127/100; PULSE 111; RESP 16; TEMP 36.1; O2SAT 98; BMI 23.3
--- NOTE | 2022-02-24 15:09 | ED.UPPEXIN ---
HPI - Extremity Injury (Upper) General Time Seen by Provider: 15:09 Date Seen: 02/24/22 Chief Complaint: Extremity Pain/Injury, Upper Stated Complaint: left wrist injury Time Seen by Provider: 02/24/22 14:54 Source: patient, RN notes reviewed and old records reviewed Mode of arrival: ambulatory Limitations: no limitations History of Present Illness HPI narrative: Simona is a very pleasant 47-year-old female. She notes that 48 hours ago she was working at the [email or web address] and hit her wrist and forearm accidentally against the corner of the bar. She noted immediate bruising to the area and since that time it has become more swollen. She does have a history of carpal tunnel on this side. She notes pain that radiates from the wrist into her elbow. She has not taken anything for pain but has been trying to limit its use. She notes that she feels like her fingers are somewhat numb. No other injury. Her skin did not break. MD complaint: injury to: left, forearm and wrist Onset (ago): day(s) Other injuries: none Hand dominance: Left Place: work Relieving factors: rest Exacerbating factors: movement of extremity Context: direct blow Associated symptoms: numbness (fingers) Treatments prior to arrival: NSAIDS (Indomethacin) Related Data Home Medications Medication Instructions Recorded Confirmed ibuprofen 200 mg tablet 800 mg PO DAILY PRN pain 02/24/22 02/24/22 loratadine .ROUTE 02/24/22 Previous Rx's Medication Instructions Recorded ciprofloxacin 0.3 %-dexamethasone 4 drp otic (ear) QID 7 days #7.5 mL 01/25/22 0.1 % ear drops,suspension (Ciprodex) bupropion HCl 150 mg tablet,12 hr 150 mg PO DIRECTED #60 tabs 02/24/22 sustained-release (Wellbutrin SR) Allergies Allergy/AdvReac Type Severity Reaction Status Date / Time Penicillins AdvReac Unknown Verified 01/25/22 12:55 PFSH PFSH Social History Smoking Status: Current every day smoker What tobacco products do you use: cigarettes Do you use any of these nicotine containing products: None Second hand tobacco smoke exposure: No How often do you have a drink containing alcohol: 2-3 times a week AUDIT-C Alcohol total score: 3 Non-prescribed substance use: denies use Exam Narrative: Exam Narrative: Examination of the left shows a large ecchymosis extending base the hand volar surface to surface to the mid aspect of. There is tenderness noted distal radius. Patient is able to move at the wrist and is able to her fingers and grafts. She is describing subjective tingling in all 5 fingers. Const: Vital Signs, click to edit/add: Vital Signs - 24 hr 02/24/22 14:55 Temperature 96.9 F L Pulse Rate [Pulse Oximeter] 111 H Respiratory Rate 16 Blood Pressure [Ri ght Upper Arm] 127/100 H Pulse Oximetry 98 Oxygen Delivery Me thod Room Air Documenting provider has reviewed patient's vital signs: yes Common normals: no apparent distress, oriented x3 and no limitations Neuro: Common normals: oriented x3 Course Vital Signs Vital signs: Initial Vital Signs Temperature 96.9 F L 02/24/22 14:55 Temperature Source Temporal Artery Scan 02/24/22 14:55 Pulse Rate 111 H 02/24/22 14:55 Respiratory Rate 16 02/24/22 14:55 Blood Pressure 127/100 H 02/24/22 14:55 Blood Pressure Mean 109 02/24/22 14:55 Blood Pressure Position Sitting 02/24/22 14:55 Pulse Oximetry 98 02/24/22 14:55 Oxygen Delivery Method 02/24/22 14:55 Vital Signs Temperature 96.9 F L 02/24/22 14:55 Pulse Rate 111 H 02/24/22 14:55 Respiratory Rate 16 02/24/22 14:55 Blood Pressure 127/100 H 02/24/22 14:55 Pulse Oximetry 98 02/24/22 14:55 Oxygen Delivery Method 02/24/22 14:55 Temperature 96.9 F L 02/24/22 14:55 Pulse Rate 111 H 02/24/22 14:55 Respiratory Rate 16 02/24/22 14:55 Blood Pressure 127/100 H 02/24/22 14:55 Pulse Oximetry 98 02/24/22 14:55 Oxygen Delivery Method 02/24/22 14:55 MDM - Extremity Injury (Upper) MDM Narrative Medical decision making narrative: 1. Distal radial fracture-this is nondisplaced. Patient is placed in a splint and will follow up with Orthopedics over the next week. This is most likely to be non operative. Patient notes that she has had pain relief with indomethacin. Patient may continue this or Tylenol as needed for discomfort. Will give patient a splint. Return to the emergency room for worsening symptoms otherwise follow-up with orthopedics. 2. History of tobacco use-we discussed that tobacco use can inhibit fracture healing. Patient states that she has had luck with Wellbutrin in the past and thus will give her prescription. 150 mg x 3 days and then 150 mg b.i.d.. We did discuss that there has been increased suicidal ideation associated with antidepressant use. Patient denies a history of suicidal thoughts, actions, or depression. She is not taking any other SSRI medications. 3. Disposition-patient will be discharged home. Return as needed. Medical Records Attestation: I reviewed the patient's medical records. Imaging Data Left forearm: My impression: Questionable fracture distal radius. Radiologist's impression: Nondisplaced fracture of the distal radius Discharge Plan Discharge Clinical Impression: Fracture of wrist Patient Disposition: Home, Self-Care Condition: Improved Additional Instructions: Splint and sling. Try to keep left wrist elevated. Ice as needed. You may use indomethacin if you choose to do so or Tylenol would be an alternative. Recommend follow-up with orthopedics. Phone number is [phone]. Please call and tell them you were seen in the emergency room and have a fractured wrist. Start Wellbutrin at 150 mg daily for 3 days and then increase to twice a day. Best wishes for smoking cessation!. Prescriptions: New bupropion HCl [Wellbutrin SR] 150 mg tablet sustained-release 12 hr 150 mg PO DIRECTED Qty: 60 2RF Rx Instructions: Take 1 tablet daily for 3 days and then increase to twice daily. No Action loratadine [Claritin] .ROUTE ibuprofen 200 mg tablet 800 mg PO DAILY PRN (Reason: pain) ciprofloxacin-dexamethasone [Ciprodex] 0.3-0.1 % drops,suspension 4 drp otic (ear) QID 7 Days Qty: 7.5 0RF Follow Up/Referrals: Provider,Not a Local [Primary Care Provider] - Stand Alone Forms: [employer] Info Instructions
--- NOTE | 2022-02-24 15:22 | CRLHL7_ITS ---
For Patients: As a result of the Cures Act, medical imaging exams and procedure reports are released immediately into your electronic medical record. You may view this report before your referring provider. If you have questions, please contact your health care provider. HISTORY: Volar pain and swelling. COMPARISON: None. FINDINGS: Three views of the left forearm. Acute nondisplaced fracture of the radial head. Joint effusion. Dictated by Deanna Benitez MD @ 02/24/2022 4:07:52 PM (Electronically Signed)
== END 2022-02-24 16:46 | disposition home or self-care (01) ==
PROVIDERS: Emergency Provider Family Medicine
DX: S52.502A Unspecified fracture of the lower end of left radius, initial encounter for closed fracture (principal); W22.8XXA Striking against or struck by other objects, initial encounter
CPT/HCPCS: 29125; 73090; 99283

== ENCOUNTER 2023-06-16 21:39 | Outpatient (CLI) | payer OTHER, SELFPAY | END 2023-06-16 21:40 | disposition home or self-care (01) | LOC: AMB 06-18 10:29 | PROVIDERS: Visit Provider Family Medicine | DX: F10.129 Alcohol abuse with intoxication, unspecified (principal) | CPT/HCPCS: A0998 ==

== ENCOUNTER 2023-10-03 09:07 | Emergency (ER) | payer OTHER, SELFPAY ==
[2023-10-03 09:10] VITALS: BP 144/88; PULSE 100; RESP 18; TEMP 36.8; O2SAT 99; BMI 24.1
--- NOTE | 2023-10-03 09:23 | ED_ITS ---
HPI - Ear Problem General Time Seen by Provider: 09: Date Seen: 10/03/23 Chief complaint: Ear/Nose/Throat Problem Stated complaint: L ear pain- outside Time Seen by Provider: 10/03/23 09:23 Source: patient, RN notes reviewed and old records reviewed Mode of arrival: ambulatory Limitations: no limitations History of Present Illness HPI Narrative: 48-year-old female who presents today with ear pain. Patient notes about a week and half of left ear pain and swelling, no known trauma, has not treated this. Related Data Home Medications Medication Instructions Recorded Confirmed ibuprofen 200 mg tablet 800 mg PO DAILY PRN pain 02/24/22 10/03/23 loratadine .Route 02/24/22 05/02/22 albuterol 90 mcg/actuation aerosol mcg inhalation 10/03/23 inhaler Allergies Allergy/AdvReac Type Severity Reaction Status Date / Time codeine Allergy Mild Unknown Verified 10/03/23 09:18 morphine Allergy Verified 10/03/23 09:18 Penicillins AdvReac Unknown Verified 10/03/23 09:18 [facility] Medical History Abscess of buttock, right Acute exacerbation of chronic low back pain Asthma Corneal abrasion Cyst Infection of flexor tendon sheath Injury of left elbow Left ankle pain Left ankle sprain Rash Sigmoid diverticulitis Surgical procedure planned within 7 days Surgical History H/O LEEP H/O reduction mammoplasty Social History (Reviewed 05/02/22 @ 10:15 by Virgen Sellers ~ [facility], [facility]) Smoking Status: Current every day smoker What tobacco products do you use: cigarettes Do you use any of these nicotine containing products: None Second hand tobacco smoke exposure: No How often do you have a drink containing alcohol: 2-3 times a week How often do you have six or more drinks on one occasion: Never AUDIT-C Alcohol total score: 3 Non-prescribed substance use: denies use Exam Narrative: Exam Narrative: General: well nourished , NAD Head: Atraumatic and normocephalic ENT: Swelling and tenderness of the scaphea on the left Eyes: Conjunctiva clear, pupils are equal reactive, external ocular motions are intact Neck: Full spontaneous range of motion of the neck Lungs: No respiratory distress Musculoskeletal: No tenderness or deformity Neurologic: No gross focal neurologic deficits Skin: No rashes Psych: Mood and affect are appropriate Const: Vital Signs, click to edit/add: Vital Signs - 24 hr 10/03/23 09:10 Temperature 98.2 F Pulse Rate [Right Pulse Oximeter] 100 Respiratory Rate 18 Blood Pressure [Ri ght Upper Arm] 144/88 H Pulse Oximetry 99 Oxygen Delivery Me thod Room Air Course Course ED Course: Patient seen and examined, prior records reviewed and shows the patient was seen 01/25/2022 with otitis externa. Patient presents today with left ear pain. There is swelling and tenderness of the scapha, no erythema or warmth. This would appear to represent a hematoma but cannot exclude abscess. Let applied and this will be incised and drained. Reevaluation(s) Time of Reevaluation #1: 09:44 Reevaluation #1: Care discussed with Dr. Chauhan, ENT who agrees with plan for incision in drainage of auricular fluid collection Time of Reevaluation #2: 10:25 Reevaluation #2: Procedure: Incision and drainage, left ear. Risks and benefits discussed with the patient. Let was applied. This was removed and the lidocaine 2% 0.5 mL total injected. A single straight incision with an 11 blade was made along the helix. Serosanguineous drainage from the fluid collection and decompressed. Pressure dressing was applied. Patient tolerated well. Discussed wound care in stable for discharge Vital Signs Vital signs: Initial Vital Signs Temperature 98.2 F 10/03/23 09:10 Temperature Source Temporal Artery Scan 10/03/23 09:10 Pulse Rate 100 10/03/23 09:10 Pulse Rhythm Regular 10/03/23 09:10 Respiratory Rate 18 10/03/23 09:10 Blood Pressure 144/88 H 10/03/23 09:10 Blood Pressure Mean 106 H 10/03/23 09:10 Blood Pressure Position Sitting 10/03/23 09:10 Pulse Oximetry 99 10/03/23 09:10 Oxygen Delivery Method Room Air 10/03/23 09:10 Vital Signs Temperature 98.2 F 10/03/23 09:10 Pulse Rate 100 10/03/23 09:10 Respiratory Rate 18 10/03/23 09:10 Blood Pressure 144/88 H 10/03/23 09:10 Pulse Oximetry 99 10/03/23 09:10 Oxygen Delivery Method Room Air 10/03/23 09:10 Temperature 98.2 F 10/03/23 09:10 Pulse Rate 100 10/03/23 09:10 Respiratory Rate 18 10/03/23 09:10 Blood Pressure 144/88 H 10/03/23 09:10 Pulse Oximetry 99 10/03/23 09:10 Oxygen Delivery Method Room Air 10/03/23 09:10 Medications Administered Medications: Discontinued Medications Generic Name Dose Route Start Last Admin Trade Name Noe PRN Reason Stop Dose Admin Lidocaine/Epinephrine/Tetracaine 3 ml 10/03/23 09:28 10/03/23 09:32 Lidocaine/Epinep/Tetracaine 3 Ml Gel..Ml. TOPICAL 10/03/23 09:29 3 ml ONCE ONE Administration Discharge Plan Discharge Clinical Impression: Seroma Patient Disposition: Home, Self-Care Condition: Improved Instructions: Seroma (DC) Additional Instructions: You may remove the pressure dressing to wash gently with soap and water daily. Replace this with gentle pressure on the ear to prevent reaccumulation of fluid. Do this for the next 4 days Activity Level: No Restrictions Discharge Diet: Regular Prescriptions: No Action loratadine [Claritin] .Route ibuprofen 200 mg tablet 800 mg PO DAILY PRN (Reason: pain) albuterol 90 mcg/actuation aerosol inhalation Follow Up/Referrals: Provider,Not a Local [Referring] - Stand Alone Forms: [employer] Info Instructions
[2023-10-03] MEDS: LIDOCAINE/EPINEP/TETRACAINE 3 ML GEL..ML. TOPICAL (09:32)
--- NOTE | 2023-10-03 10:30 | ED.NURSE ---
Applied gauze and Tegaderm to pt left ear, clamp applied on top.
== END 2023-10-03 10:35 | disposition home or self-care (01) ==
PROVIDERS: Emergency Provider Family Medicine
DX: S00.432A Contusion of left ear, initial encounter (principal)
CPT/HCPCS: 69000; 99283; 99284

== ENCOUNTER 2025-05-23 13:39 | Outpatient (CLI) | payer BC, SELFPAY | END 2025-05-23 13:40 | disposition home or self-care (01) | LOC: NFLDREF 05-27 03:11 | PROVIDERS: PCP Family Medicine; Referring Provider Family Medicine; Visit Provider Family Medicine | DX: M25.50 Pain in unspecified joint (principal) | CPT/HCPCS: 86200; 86431 ==

== ENCOUNTER 2025-05-23 13:49 | Outpatient (CLI) | payer BC, OTHER, SELFPAY ==
--- NOTE | 2025-05-23 14:00 | CRLHL7_ITS ---
For Patients: As a result of the Century Cures Act, medical imaging exams and procedure reports are released immediately into your electronic medical record. You may view this report before your referring provider. If you have questions, please contact your health care provider. Indication: Foot pain Technique: Three views each foot, 6 views total IMPRESSION: Narrowing and spurring at the 1st MTP joints bilaterally, right greater than left. Right hallux valgus with bunion. Midfoot alignment normal bilaterally. Dictated by Addison Jiménez MD @ 05/23/2025 2:32:55 PM (Electronically Signed)
--- NOTE | 2025-05-23 14:15 | CRLHL7_ITS ---
For Patients: As a result of the Century Cures Act, medical imaging exams and procedure reports are released immediately into your electronic medical record. You may view this report before your referring provider. If you have questions, please contact your health care provider. Indication: Ankle pain Technique: Three views left ankle IMPRESSION: Hypertrophic change of the tip of the medial malleolus with adjacent small ossicle. Intact mortise. Hypertrophic change to the anterior talus. Calcaneal inclination angle normal. Dictated by Addison Jiménez MD @ 05/23/2025 2:32:01 PM (Electronically Signed)
--- NOTE | 2025-05-23 14:30 | CRLHL7_ITS ---
For Patients: As a result of the Century Cures Act, medical imaging exams and procedure reports are released immediately into your electronic medical record. You may view this report before your referring provider. If you have questions, please contact your health care provider. Indication: Ankle pain Technique: Three views right ankle IMPRESSION: Small chronic ossicle adjacent to the tip of the medial malleolus. No joint effusion. No fracture. Dictated by Addison Jiménez MD @ 05/23/2025 2:33:51 PM (Electronically Signed)
== END 2025-05-23 13:50 | disposition home or self-care (01) ==
PROVIDERS: PCP Family Medicine; Visit Provider Podiatrist Foot & Ankle Surgery
DX: M79.671 Pain in right foot (principal); M79.672 Pain in left foot; M25.571 Pain in right ankle and joints of right foot; M25.572 Pain in left ankle and joints of left foot
CPT/HCPCS: 73610; 73630

== ENCOUNTER 2025-05-30 16:00 | Outpatient (CLI) | payer BC, SELFPAY | END 2025-05-30 16:01 | disposition home or self-care (01) | PROVIDERS: PCP Family Medicine; Visit Provider Family Medicine | DX: M25.50 Pain in unspecified joint (principal) | CPT/HCPCS: 80048; 84550; 86038; 86140; 86812 ==